=== PATIENT | female | born 1985 | race Two or more races ===

== ENCOUNTER 2023-02-12 12:33 | Outpatient (OUT) | payer OTHER, SELFPAY ==
[2023-02-12 12:52] LABS: Hemoglobin 11.7 g/dL (12.0-16.0)
[2023-02-12] MEDS: ALBUTEROL SULFATE 2.5 MG/3 ML VIAL NEB IH (13:41)
--- NOTE | 2023-02-12 13:45 | RT_ITS ---
The [facility] Test Date: 2023-02-12 Pat Name: LEVI SY Department: Room: - Gender: Female [employer] Planner: Corbin Henderson RRT : 1985 Requested By: Finn Delgado Order Number: [id number] Reading MD: Finn Delgado Interpretive Statements Pulmonary function testing was completed according to ATS criteria. Findings were considered accurate and reproducible. Both pre- and post-bronchodilator values utilized for spirometry. No prior studies available for comparison. Spirometry (based on pre-bronchodilator values): -FEV1/FVC: Normal @ 86% -FEV1: Reduced @ 79% -FVC: Mildly reduced @ 77% -There is no significant bronchodilator response. Lung volumes by plethysmography (based on pre-bronchodilator values): -RV: Normal @ 100% -TLC: Normal @ 92% Diffusion capacity: -DLCO: Normal @ 95% when corrected for Hb 11.7g/dL Flow-volume loop: -Mild restrictive pattern Impressions: -Mild restrictive pattern on spirometry, though restriction is not confirmed as TLC is normal. A reduced FVC with normal RV, TLC and diffusion capacity suggests an obesity pattern based on stated BMI of 46.2. Clinical correlation required. Electronically Signed On 02-16-2023 7:50:32 EDT by Finn Delgado
--- NOTE | 2023-02-12 14:04 | CT_ITS ---
[address] [address] Patient Name: LEVI SY MRN: [id number] date: 1985 Sex: F Assigned Patient Location: CARD Current Patient Location: CARD Accession/Order Number: [id number] Exam Date: 02/12/2023 14:25 Report Date: 02/13/2023 04:51 At the request of: ELVI GRIFFITH Procedure: CT chest high res EXAMINATION: CT chest high res HISTORY: Hemoptysis R0.42, Multiple lung nodules R91.8 , chronic cough COMPARISON: CT abdomen pelvis 10/21/2013 TECHNIQUE: Axial images were obtained at 10 mm intervals during inspiration and expiration in the supine and prone positions. No IV contrast given. Dose reduction techniques were achieved by using automated exposure control and/or adjustment of mA and/or kV according to patient size and/or use of iterative reconstruction technique. FINDINGS: LUNGS: Mild discoid atelectasis or scarring adjacent the major fissure at level of the hilum. Triangular-shaped irregular opacity within posterior right lower lobe, approximately 2.2 x 2.3 cm which changes and volume between supine and prone imaging suggesting a component of atelectasis overlying scarring or infiltrate. Stable 7 mm nodule within medial posterior right costophrenic angle. PLEURA: No mass, effusion, or pneumothorax. GERMAN: Numerous calcified right hilar lymph nodes suggestive of chronic granulomatous disease. MEDIASTINUM: Large calcified mediastinal lymph nodes. CHEST WALL: No mass or axillary adenopathy LIMITED ABDOMEN: No suspicious findings. Limited images of the upper abdomen. OTHER: Negative. IMPRESSION: 1. No significant chronic interstitial changes, air trapping, bronchiectasis. 2. Chronic granulomatous disease. 3. Nonspecific triangular shaped opacity within posterior right lower lobe, in no correlated studies for comparison. Differential favors scarring, atelectasis, and acute infiltrates, but neoplasm cannot be excluded. Consider following up with standard CT chest without contrast in 3 months for greater diagnostic sensitivity and to document stability or clearing. Electronically authenticated by: KIMBERLEY BRYAN Date: 02/13/2023 04:51
== END 2023-02-12 12:34 ==
LOC: CARD 12:37
PROVIDERS: PCP Nurse Practitioner Family; Visit Provider Internal Medicine
DX: R05.3 Chronic cough (principal); R06.02 Shortness of breath; R04.2 Hemoptysis; R91.8 Other nonspecific abnormal finding of lung field
CPT/HCPCS: 36415; 71250; 85018; 94060; 94726; 94729

== ENCOUNTER 2023-05-25 14:14 | Outpatient (OUT) | payer OTHER, SELFPAY ==
[2023-05-25 15:35] LABS: Alanine Aminotransferase 48 U/L (14-59); Albumin Globulin Ratio 0.8; Albumin Level 3.5 g/dL (3.4-5.0); Alkaline Phosphatase 119 U/L (46-116); Aspartate Amino Transferase 36 U/L (15-37); Bilirubin Direct 0.1 mg/dL (0.0-0.2); Globulin 4.4 g/dL; Total Protein 7.9 g/dL (6.4-8.2)
== END 2023-05-25 14:15 | disposition home or self-care (01) ==
LOC: LAB 14:16
PROVIDERS: PCP Nurse Practitioner Family; Visit Provider Podiatrist
DX: B35.1 Tinea unguium (principal)
CPT/HCPCS: 36415; 80076

== ENCOUNTER 2023-12-24 18:45 | Outpatient (OUT) | payer OTHER, SELFPAY ==
--- NOTE | 2023-12-24 18:56 | XR_ITS ---
The [place] [id number] Patient Name: LEVI SY MRN: [id number] date: 1985 Sex: F Assigned Patient Location: [facility] Current Patient Location: Accession/Order Number: [id number] Exam Date: 12/24/2023 18:58 Report Date: 12/25/2023 07:05 At the request of: MARTIN RAY Procedure: XR foot RT 2V PROCEDURE: XR foot RT 2V COMPARISON: None. HISTORY: Right foot pain, M79.671 FINDINGS: BONES:No fracture, acute abnormality, or significant arthropathy. Mild enthesopathic spurring of the calcaneus at the Achilles insertion SOFT TISSUES:Negative. No visible soft tissue swelling. EFFUSION:None visible. OTHER: Negative. XR/XR foot RT 2V IMPRESSION: No acute radiographic abnormality Electronically authenticated by: RAAD ANDUJAR Date: 12/25/2023 07:05
== END 2023-12-24 18:46 | disposition home or self-care (01) ==
PROVIDERS: PCP Nurse Practitioner Family; Visit Provider Nurse Practitioner Family
DX: M79.671 Pain in right foot (principal)
CPT/HCPCS: 73620

== ENCOUNTER 2024-01-07 07:49 | Outpatient (OUT) | payer OTHER, SELFPAY ==
--- OUTSIDE RECORDS SUMMARY | 2024-01-07 08:14 | XMS_ITS | CCD ---
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 [employer] Name Role Phone RANDI MORTONDER Unavailable Unavailable MAHDI BLANCA Unavailable Unavailable Ignacia Acosta Unavailable DianPaige Unavailable IGNACIA RAY Admitting Unavailable IGNACIA RAY Attending Unavailable IGNACIA RAY Primary Care Unavailable IGNACIA RAY Consulting Unavailable RAAD HUGHES Consulting Unavailable Medications Current Medications Medication Drug Class(es) Dates Sig (Normalized) Sig (Original) [id number] 200 actuat albuterol 0.09 mg/actuat metered dose inhaler (2 sources) beta2-Adrenergic Agonist Start: 08-28-2022 take 2 puff(s) by inhalation every four hours as needed Albuterol Sulfate HFA 108 (90 Base) MCG/ACT 2 puffs as needed Inhalation every 4 hrs Aug, Active amoxicillin 875 mg oral tablet (2 sources) Penicillin-class Antibacterial Start: 08-28-2022 take 1 tablet by mouth every eight hours Amoxicillin 875 MG 1 tablet Orally every 8 hrs for 10 day(s) Aug, Active dexamethasone 4 mg oral tablet (2 sources) Corticosteroid Start: 08-28-2022 Dexamethasone 4 MG 3 tablets daily for 3 days then 2 tablets daily for 3 days then 1 tablet daily for 3 days Orally Once a day for 9 days Aug, Active Problems Active Problems Problem Classification Problem Date Documented Da te Episodic/Chronic Acute bronchitis (4 sources) Acute bronchitis, unspecified; Translations: [ACUTE BRONCHITIS UNSPECIFIED] Onset: 10-28-2022 Episodic Immunizations and screening for infectious disease (3 sources) Contact with and (suspected) exposure to other viral communicable diseases; Translations: [Contact with and (suspected) exposure to other viral communicable diseases] Episodic Pneumonia (except that caused by tuberculosis or sexually transmitted disease) (1 source) Pneumonia, unspecified organism Episodic Unclassified (1 source) PERSONAL HISTORY OF COVID-19; Translations: [PERSONAL HISTORY OF COVID-19] Onset: 10-30-2022 Past or Other Problems Problem Classification Problem Date Documented Da te Episodic/Chronic Other female genital disorders (2 sources) Unspecified condition associated with female genital organs and menstrual cycle; Translations: [Unspecified condition associated with female genital organs and menstrual cycle] Onset: 02-05-2017 Episodic Unclassified (1 source) Acute cough R05.1 Viral infection (1 source) COVID-19 Results Test Name Value Interpretation Reference Range Facility XR CHEST 2 Von 10-28-2022 XR CHEST 2 V EXAM: XR CHEST 2 V HISTORY: . Acute bronchitis . COMPARISON: 11/15/2012 TECHNIQUE: Frontal and lateral chest FINDINGS: Heart and vascularity are unremarkable. Left lung is unremarkable. There are couple linear densities in the right midlung field. No consolidation is noted. No effusions are noted. No acute bony abnormality is appreciated. IMPRESSION: Linear areas of platelike atelectasis versus scarring in the right midlung field. The remainder of lung ernst are unremarkable. Electronically authenticated by: RAAD HUGHES Date: 2022-10-28 17:27 Normal [facility] COVID/FLU RT-PCRon 2 SARS-CoV-2 (COVID-19) RNA TOBY+probe Ql (Unsp spec) Positive [employer] Other COVID/FLU RT-PCR Negative [email or web address] Other Coding Summaryon 05-17-2021 Coding Summary [employer] 64 ZbuuoiobCQo8dTb+PGhlYW Q+TS2SPOTdR31dbDUumQ9K Q6lOSM2YTQIUMLQJFI8IRC 6dmIZ9XRmrW8LcyxZs ApmsyBSuWO33QCn0KNK2sP xjRKaszT5zqOVmW6n4ZiLl AC79pU89HVqxZNMtCwB7Vv ZpbjsgbWFy W7atObYvlBZmIsb+PHRhYm xlIHdpZHRoPScxMDAlJyBz dBreXW1zVh8pWAHdEMLoqR xhcHNlOiBj x6sqNLRlYOquSL2doMyyN1 CziRG4LFQwh2o8Fb82fLA+ JVPeVJT4jDxaAQbot190Bg Man5kwDWE3 sVAfOBtsBYP1N31sp0N6FN CpPUDtIUN8iJD3mG0htNff lfljA4WhwSCsEzU3TXI1sA JbpL8zpBkf anykhV0xDvj+W92TLI4PBO FCXJ1SCti1O8MhMksgdKQ+ GA45MROaTU85bFCiuMLaa2 akhCc2NnLu CWWbBOF1qIwiQTtvi2KdTI YoF46koPWjm3N2LBTzpTbc dRNgEoBhuBP1hJ5cZUlpup zfc1ctuuqu Rifbz0uxhs92bW62Z91qCG glMZHcBSB0EXZzJDFrjPqv pu9hmC8iGb3+QCtlu0jwm8 ivqZu4PmAr BSBaqvHciKqeNIW9p6MoUi 70F2OgbAxfj5WmHyl1td56 fWOhr4Y8cUL2EYukMBJnmU 5lSNvjHyS4 KNNqAfYlsG39gTMcMJfyXs 6mvNnorFztNO1hBTRilnhr IWNeeR5tMHWtuWDwnUbbNO 4wNTBpbjtm j946XfBiKNY0BWPdcUCqF6 XagO7lOmElTNStJPLlZ5Wz rQNbZFdaR952QTnnNcL1ZK ZksgQsO6Ia JJMnkQsiQdO5w4C7Bb6Ro7 AtrefpMUI0KLckEYP6KlH6 MzOhPsX2I9JqNvn3YMZygB kzGE9sT9Fy SEJilxzkhwhbkQU4RLVkYN XrxM92rAVtQOthLj3zi7M8 q684KQSeDFSlnP71Ki8bdV ogMTBwdCBU rM6zjzkad6gdjaueEgFjEG TeYWu0OCr7NUPycZvwSsTw LWZ6DdR1GIQ6ePQjtH1egV fyzcdvzI5f Oyc+X95yfZ4kZBL9RQW3eg yjFOYeftRhUZ24XB19L6Ff PjwvdGFibGU+PGRpdiBzdH siDX7mBhKa u8keg0QxCEngY7YdBIAfOS zcGlm1SUDfKAQ7mSJ7yM1i OQHjIUnoj5V4sWO8K9Qcud Qutx7gd1fm DFFoZFfwW47wkNKzx8N4KW NazDX2BKEktNppJcSfyA58 Oyc+YMKfzIcdq5LlHxojm7 ieh0rymRx3 SkHcSKHzduJfwWqgFKS1c4 HfRh10B94sOQpxQOYjIKFx ZNNlFPQtzXfpas3nfT4uAz 8+PGNvbCB3 zJX2nQ8zJUEvNyS5LAbuW9 42KgSypFYwEyeir9bjq9dl rQi9AlQiOMKzslKecNoeQD Z9y5NvSj26 F92lVFtuBADhVJWyHHWhHU OkhHoxem8yyH1nWu9+PC9j x6dcwj07oG11cGM+PHRkIH X9vDgiABfn ADVhoG1bSTbbEnW1WYDhGf KviX90uXCfPXgfJf4jiMyx oHfpTB0iYUHguiszt525Ih Seg3rzWVIn nRUlRXmfNHD0F87lv5M9EY WlGTTrULW5dEY9yF0auOxw bjogbGVmdDsgdmVydGljYW ujTDpuE366 IHRvcDsnPlBhdGllbnQgTm EuSFv8X6QdSdc4TIDpvIqu HV6umSShMEsxJc9svKjjqC bjTZ9cTIAr yzjdi271EmGbn9nfTUVklC YzHPehUML4E90lz6I3SLBp EKEiPRO8uAH7sJ6xnSjnba ogbGVmdDsg rqXzdMmiWIwpEQtyA338AH RvcDsnPkJpcnRoIERhdGU6 HU89DJ50vLBbn1Y9qVM3L0 BhZGRpbmct fpbqcSR2ZNEmGPQhpG83Nt 7zdQlhLv9fWOGfMLV7TIMn rLNpC0UsmX7lRjIrMTCzJM OwY3CjvAMu KFkgP413WHzoJrZ5KUCjkb VkQ1IyUWWujEpeAeQ5w9E6 Nn6VC1B9VQ20LL93xUNxa9 A5yBF8K6Jt MPVfmdaginykpVL7ALZxBD WvsU19Gi6bjFhqYz9qOCSu CGI9ROAsrNAnT3WlsN1lYu AjMDAwMDAw X3ZysQPfHNmlC315ZExuQz C6TMJwgpDkZ2GfFBJcfGvr GiJ3n5L5Mv3LFGa5XN71FH 56wVPou7O0 uYH4N5DgISBeomhiehgkpW L3ZFZmTTCsvP85Lu3vjFru Yp7iZZObKVJ1DQZbhADuO2 ZxoM1mRdGb EWAeFZIdQ6IjeTOpWEkuQ0 74IRueGyY6JXLbxpBbE3Lv IJPekKmyGwZ9y6V9Ay8AZJ FvLH06HXO9 kMU6JX41ST61S5GtFrevwY FibGU+PHRhYmxlIHdpZHRo HJvwZRYcXiGejGczSF5yMf 9yZGVyLWNv uZkxqAQlKzLfv3afVIQxBP iyNJ0llNhvJ3QqzNH9HRWg x3l4Fo60E15mX5TzwAX+PG XyoME8wNU8 yA2pMeOoQyQ7QFbtI629Kr DcrQRmFltkq5kaf4nptEc0 OvD4DWEwraRqhNkbRSC3n3 ApAq40M15z IHdpZHRoPSIxNSUiIHZhbG kpth0rqM4lWv0+PGNvbCB3 lBE6iC7sWoZyTgX7ZSxpA6 49InRvcCIv Wgthv1iup1riqVj5HcCfQA OamoPhuAwuBFE4i2VvDq41 L1CrfNtrx1WxXpq7xr51yR Xht9W9zZU9 Q9SyHTVrglhmaIOolLtcUK 9fKRVurkguQXGovR8jKVRx V7j4MjPdVaE1VBirO0Vatl R4DRYvwNYl FAbrZIN5X90da4P0HFZzRH UuOOS0dHP6aS2gxEwbphhc bGVmdDsgdmVydGljYWwtYW lvL373RPGq kTsnKUWkcL5fSEIwsJNltC zjRK2lMHCyhdhkSwYGM5QB QsuiT3OAFAOUBHNDYG78CX 12kCCtr4B5 tLU8P2EeUEMxszkyqxemnO W8GGHgQJRyyL82kSMdCQli Ge5cx9I3a610MJKcCETtmV 34Cq0fzPpn THRwmFZEkS3ztsspx7shez qyUxXjDNMjMHe9JQf5QVBg dJxcVvIoQET3DmL5MEM4rV JfpI8jlWsu qexylJ2tEcy+MDQvMTAvMT i4EUuohMG+MMAmOOT1cZta CJoiSJCzzG1pRTNyH1p2Ps YfRgW7EKhx E6OlFEIelaroGl68aC3aOy IrUvP1PDhrU9IxibV3JOWh mTIfVSajFIU6S95tl9P3UL MwMDAwMDA7 nHP9zH0snGyaqspvfTOxkY hdotLzgYkoEObyQDmnM731 PIVhvIgqRxE2KEqwXRDzUT 80KY10rECd c9F6yZL6S8WfVCAsnpjfux rucTG5ILTzQITobD44sKWv VJtpNr7gw1P9d864IUCiQY HngM90Jz7a tXisUZUoiWMTiD7pibotc0 delheoDaQdTTZmGZa4LMv2 FMErwXvhZqWjKEZ8LgH2PT K0qTJcdF5x tEvwfjmdiX9dZqr+RkVNQU iKKU80FK00qXRps0E0kFN8 H5DjTVMosbaghqorjIJ6UX DtTBSjnI66 iBVrJGvnOl0ck7G0y570IZ OgUSIxrU36Bh3zvWjhTCUl hFOQmN8newkcn4bckrvsIe AwMDAwMDt0 RYt4GJBtcXvjZsXdAEE5Ix H2DEF9hYLumR7wkMiyggqk vT0xQip+E3H6O4JiElusuD I+BN58UQRo OA10aFXctAAcg7gmiXj5Pe NlCTFyUPJ3pDlbOTurz1Vx RCVwI40bvFBzv9E2BQQxxK xhcHNlOyBl uBD2lL3zPWdeaqlsv5yjcl goYhmlm5xnas05nR16J37t IHdpZHRoPSIzMCUiIHZhbG avwm7pkU8n Ii8+ETFsqEW7sBD2fO8mRe IdWhR3CXatQ005GlGprXTm Etaup5vdd5iboRl7KiOzYA IgdmFsaWdu FRP4h6YaMp03K44pUPtkKV FmRQHbBVLtBMBfxPutrm9g gN5xEz6+GV1jp0gvll01uX 48dHI+PHRk POR7rZjrBJdvTLHdvW6mHH kjDpA3BHChPaXewM50cLWq WGoxUd8baQywqTyoCL4vBL Sceceoi945 JwCak2fpWYAthOAxYMcxBC W5B68vh3H6URMlSHSkCVA7 uDY2nA3cvJkngjqvbSChsM sgdmVydGlj OYapXAuxL773SKAqjOuwLu SibOSrT2odnsGLVH3qEtwy dGQ+VBFbMPD0sTjlCAyzLR CknN1aZUMf Y0g4JlStIvP9LPpgV0Hiek N0VDYnhZYgXFWllFINfB9v fgnzu4rjhbypCoUyFAJvQI t8IQt6CMXs wVvaBlCcXDX8PkY6ZGZ5pL TijF1vbMdwskkhpV2iObx+ RklOOjwvdGQ+WAJwTSJ7jN xlPSdwYWRk gA0hKDBuD7f7MjPgHfM4KB nhO4CbunV6XCKjsZEzEXHk hINNmM8rzmqbv6pwewnbWw AwMDAwMDt0 IAk2FBRfsXteTcAvSGR6Gw E4FTN7cBGqxW8cmOineuwa nY1nAdk+TVJOOjwvdGQ+PH PoIQS1kWgo BAdmHQFzqN2lPOCiB7y3Ef WoWzD1SMvkO4FtbiG5MMLd rJZkKLPavEZTkJ4vbbmaq8 xvcjogIzAw YPJdCWv8UFo5NDHlfFodOp BdVDB5DkU1XWM7yPWheI0w gDjmfvudlL6fGrw+UGF5ZX Q9HO81NV24 E6YlKarwtLLufWI+PHRhYm xlIHdpZHRoPScxMDAlJyBz fJcaAL9zCy4lNRWyJUJefN xhcHNlOiBj b2x (more content not included)... Normal [facility] ED Clinical Summaryon 2020 ED Clinical Summary [facility] ? Urgent Care [address] [place], [place] [id number] Clinical Summary PERSON INFORMATION Name: GABBY COREAS Age: 35 Years Sex: FEMALE : 1985 MRN: Acct#: Visit Reason: Eye problem; UC - Eye Pain; LT EYE IRRITATION Arrival: 05/14/2021 14:57:24 Discharge: 05/14/2021 16:10:00 LOS: 000 01:13 Check In: 05/14/2021 14:57:24 Checkout: 05/14/2021 16:10:00 Address: [address] [facility] [address] PCP: Nancy Sterling PROVIDER INFORMATION Provider Role Assigned Unassigned BETTY Interiano, Priscilla ED Nurse 05/14/2021 15:01:15 Jose Mistry ED PA 05/14/2021 15:06:56 VITALS INFORMATION Vital Sign Triage Latest Temperature Tympanic Temperature Temporal Artery Pulse Rate O2 Sat 96 % 96 % Respiratory Rate Blood Pressure /76 mmHg /76 mmHg MEDICAL INFORMATION Medications Given: Allergy Information: No Known Medication Allergies PHYSICIAN DOCUMENTATION DISCHARGE INFORMATION: Discharge Disposition: Home Discharge Location: Home PATIENT EDUCATION INFORMATION Instructions: Bacterial Conjunctivitis, Adult Follow-Up: With: Address: When: ROSHAN SOTOMAYOR [address] [place] [address] Business (1) Within 1 to 2 days Comments: Call Dr. Sotomayor's office to make a follow-up appointment in the next 1 to 2 days. With: Address: When: Nancy Sterling [address] [facility], [address] [place] [address] [facility] (1) Within 2 to 4 days Comments: Discharge diagnosis of bacterial conjunctivitis, infection of the lacrimal duct. There is no foreign body seen. Weldon lamp negative for corneal abrasions Begin Antibiotic eyedrops of tobramycin to left eye as directed Begin Keflex 500 mg every 8 hours neck 7 days. Off work for today. Apply warm compresses. Without fail follow-up with prescription eyeglass maker. DIAGNOSIS: Acute bacterial conjunctivitis of left eye; Decreased visual acuity; Discharge of eye, left; Infection of left lacrimal duct; Left eye pain; Pain and swelling of lower eyelid of left eye Patient Understands: Yes - Patient/family/caregiv er verbalizes understanding of instructions given Comment: Normal [facility] ED Patient Summaryon 021 ED Patient Summary [facility] ? Urgent Care [address] [place], [place] [id number] PATIENT DISCHARGE INSTRUCTIONS Patient Information Name: GABBY COREAS Age: 35 Years Date of : 1985 Reason For Visit: Eye problem; UC - Eye Pain; LT EYE IRRITATION Arrival Time: 05/14/2021 14:57:24 Primary Care Physician: Nancy Sterling Attending Physician: Jose Mistry Comment: Patient Education With: Address: When: ROSHAN SOTOMAYOR [address] [place] [address] Business (1) Within 1 to 2 days Comments: Call Dr. Sotomayor's office to make a follow-up appointment in the next 1 to 2 days. With: Address: When: Nancy Sterling [address] [facility], [facility] [address] [place] [address] Business (1) Within 2 to 4 days Comments: Discharge diagnosis of bacterial conjunctivitis, infection of the lacrimal duct. There is no foreign body seen. Weldon lamp negative for corneal abrasions Begin Antibiotic eyedrops of tobramycin to left eye as directed Begin Keflex 500 mg every 8 hours neck 7 days. Off work for today. Apply warm compresses. Without fail follow-up with prescription eyeglass maker. Bacterial Conjunctivitis, Adult Bacterial conjunctivitis is an infection of the clear membrane that covers the white part of your eye and the inner surface of your eyelid (conjunctiva). When the blood vessels in your conjunctiva become inflamed, your eye becomes red or pink, and it will probably feel itchy. Bacterial conjunctivitis spreads very easily from person to person (is contagious). It also spreads easily from one eye to the other eye. What are the causes? This condition is caused by bacteria. You may get the infection if you come into close contact with: ? A person who is infected with the bacteria. ? Items that are contaminated with the bacteria, such as a face towel, contact lens solution, or eye makeup. What increases the risk? You are more likely to develop this condition if you: ? Are exposed to other people who have the infection. ? Wear contact lenses. ? Have a sinus infection. ? Have had a recent eye injury or surgery. ? Have a weak body defense system (immune system). ? Have a medical condition that causes dry eyes. What are the signs or symptoms? Symptoms of this condition include: ? Thick, yellowish discharge from the eye. This may turn into a crust on the eyelid overnight and cause your eyelids to stick together. ? Tearing or watery eyes. ? Itchy eyes. ? Burning feeling in your eyes. ? Eye redness. ? Swollen eyelids. ? Blurred vision. How is this diagnosed? This condition is diagnosed based on your symptoms and medical history. Your health care provider may also take a sample of discharge from your eye to find the cause of your infection. This is rarely done. How is this treated? This condition may be treated with: ? Antibiotic eye drops or ointment to clear the infection more quickly and prevent the spread of infection to others. ? Oral antibiotic medicines to treat infections that do not respond to drops or ointments or that last longer than 10 days. ? Cool, wet cloths (cool compresses) placed on the eyes. ? Artificial tears applied 2?6 times a day. Follow these instructions at home: Medicines ? Take or apply your antibiotic medicine as told by your health care provider. Do not stop taking or applying the antibiotic even if you start to feel better. ? Take or apply fxdu-jbg-uilrjwn and prescription medicines only as told by your health care provider. ? Be very careful to avoid touching the edge of your eyelid with the eye-drop bottle or the ointment tube when you apply medicines to the affected eye. This will keep you from spreading the infection to your other eye or to other people. Managing discomfort ? Gently wipe away any drainage from your eye with a warm, wet washcloth or a cotton ball. ? Apply a clean, cool compress to your eye for 10?20 minutes, 3?4 times a day. General instructions ? Do not wear contact lenses until the inflammation is gone and your health care provider says it is safe to wear them again. Ask your health care provider how to sterilize or replace your contact lenses before you use them again. Wear glasses until you can resume wearing contact lenses. ? Avoid wearing eye makeup until the inflammation is gone. Throw away any old eye cosmetics that may be contaminated. ? Change or wash your pillowcase every day. ? Do not share towels or washcloths. This may spread the infection. ? Wash your hands often with soap and water. Use paper towels to dry your hands. ? Avoid touching or rubbing your eyes. ? Do not drive or use heavy machinery if your vision is blurred. Contact a health care provider if: ? You have a fever. ? Your symptoms do not get better after 10 days. Get help right away if you grover (more content not included)... Normal [facility] Eye Cultureon 05-14-2021 Eye Culture Light growth of Staphylococcus epidermidis Normal skin deborah isolated No pathogens isolated Rare epithelial cells 1+ White Blood Cells No organisms seen. Normal [facility] Comment on above: Performed By: #### [id number] #### [facility] (DEFAULT) [address] [place] [address] Urgent Care Note- Provideron 05-14-2021 Urgent Care Note- Provider Patient: GABBY COREAS Age: 35 years Sex: FEMALE : 1985 Associated Diagnoses: Discharge of eye, left; Left eye pain; Pain and swelling of lower eyelid of left eye; Infection of left lacrimal duct; Acute bacterial conjunctivitis of left eye; Decreased visual acuity Author: Jose Mistry Basic Information Time seen: Date & time 05/14/2021 15:07:00. History source: Patient. Arrival mode: Walking. History limitation: None. Additional information: Chief Complaint from Nursing Triage Note : Chief Complaint 05/14/2021 15:41 EDT Chief Complaint Patient arrives to with c/o left eye pain and irritation that began 3 days ago and became worse today . Denies any injury or getting anything in her eye. . Onset 05/11/21 of left eye irritation, scratchy sensation. Seemed normal 05/12 and 05/13. Today patient complains of left eye stringy mucous, irritation, pain to blink. She states she is seeing strings of thick mucus come from her left eye. The inner aspect of her left eye appears swollen. She does not wear glasses or contacts. Patient has a history of stye in the past and wonders if this is the same. She has applied warm compresses. She denies definite vision changes. She states occasionally the left eye becomes blurry when there is mucus and when she wipes her eye her vision clears right back up. She denies a headache, known foreign body, injury to the eye. She does not have a history of diabetes or glaucoma. She does not have an active prescription eyeglass maker. ALL: NKDA Social: Nonsmoker. No Etoh. Lives in [place] [employer] Constitutional symptoms: No fever, no chills. Eye symptoms: Pain, discharge, blurred vision, no diplopia, no blindness. Respiratory symptoms: No shortness of breath, no cough. Gastrointestinal symptoms: No abdominal pain, no vomiting, no diarrhea. Neurologic symptoms: No headache, no dizziness. Health Status Allergies: Allergic Reactions (Selected) No Known Medication Allergies. Past Medical/ Family/ Social History Medical history: No active or resolved past medical history items have been selected or recorded.. Surgical history: No active procedure history items have been selected or recorded.. Family history: No family history items have been selected or recorded.. Social history: Social & Psychosocial Habits Alcohol 05/14/2021 Alcohol Use: Current Frequency: 1-2 times per month Substance Abuse 05/14/2021 Substance use: Never Tobacco 11/08/2017 Smoking tobacco use: Never (less than 100 in l 05/14/2021 Smoking tobacco use: Never (less than 100 in l Electronic Cigarette/Vaping 05/14/2021 Electronic Cigarette Use: Never . Problem list: Active Problems (1) Pneumonia . Physical Examination Vital Signs Vital Signs 05/14/2021 15:41 EDT Temperature Oral 36.5 DegC Peripheral Pulse Rate 98 bpm Respiratory Rate 16 br/min Systolic Blood Pressure 128 mmHg Diastolic Blood Pressure 76 mmHg SpO2 96 % Oxygen Therapy Room air . General: Alert, no acute distress, Not ill-appearing, Skin: Warm, dry, No rash on face or tip of nose. Head: Normocephalic, atraumatic. Neck: Supple, trachea midline. Eye: Pupils are equal, round and reactive to light, extraocular movements are intact, Visual acuity: Right eye 20/ 25, left eye 20/ 50, without correction, Does not wear glasses or contacts, Eyelids: Left, upper and lower, She does have pain with blinking suggestive of corneal abrasion. , clear watery drainage, mild, No pain with blinking., Eyelids everted and there is no visible foreign bodies, no hordeolum. Gentle pressure over bilateral globes does not cause pain or pressure. , medial aspect upper and lower eyelid with edema, erythema. , no chalazion, no ectropion, no entropion, not edematous, no erythema, not with foreign body present, Conjunctiva: Both eyes, not with subconjunctival hemorrhage, Cornea: Clear, Litmus staining with Wood's Lamp Inspection of eye is normal, no abrasions or ulcerations noted., not cloudy, Red reflex: Present. Ears, nose, mouth and throat: Tympanic membrane: no erythema, no dullness, Sinus: no tenderness, Nose: no congestion, Mouth: Normal, Mucous membranes moist, well-hydrated., Mucous membranes moist, well-hydrated., Throat: Gag reflex present, no erythema, not with exudate, no swelling, no uvula shift. Cardiovascular: Regular rate and rhythm, No murmur. Respiratory: Lungs are clear to auscultation, respirations are non-labored, breath sounds are equal, No wheezing, rales, rhonchi, no retractions, nonlabored. Gastrointestinal: Soft, Nontender. Neurological: Alert and oriented to person, place, time, and situation, No focal neurological deficit observed, CN II-XII intact, normal speech observed. Lymphatics: Exam: not anterior cervical, not posterior cervical, not swollen. Psychiatric: Cooperative, appropriate mood & affect. Medical Decision Making Rationale: Patient seen in urgent care for left eye irritation a (more content not included)... Normal [facility] Urgent Care [place] [address]21 Urgent Care Record [facility] ? Urgent Care [address] [place] [address] PATIENT DISCHARGE INSTRUCTIONS Patient Information Name: GABBY COREAS Age: 35 Years Date of : 1985 Reason For Visit: Eye problem; UC - Eye Pain; LT EYE IRRITATION Arrival Time: 05/14/2021 14:57:24 Primary Care Physician: Nancy Sterling Attending Physician: Jose Mistry Comment: Visit Diagnosis: Diagnoses This Visit Acute bacterial conjunctivitis of left eye (H10.32) Decreased visual acuity (H54.7) Discharge of eye, left (H57.89) Eye problem ([id number]) Infection of left lacrimal duct (H04.302) Left eye pain (H57.12) Pain and swelling of lower eyelid of left eye (H02.89) UC - Eye Pain ([id number]) If you received any narcotics, sedation, or any other medication that causes drowsiness for the next 24 hours, unless otherwise directed: ? Do not drive a car. ? Do not operate machinery such as power tools, lawn mowers, drills, sewing machines, or stoves ? Avoid alcoholic beverages and drugs for allergies, nerves, or sleep ? Do not make important personal or business decisions or sign any legal documents With: Address: When: ROSHAN SOTOMAYOR [address] [place] [address] Business (1) Within 1 to 2 days Comments: Call Dr. Sotomayor's office to make a follow-up appointment in the next 1 to 2 days. With: Address: When: Nancy Sterlnig [address] [place] [address] [address] [place] [address] Business (1) Within 2 to 4 days Comments: Discharge diagnosis of bacterial conjunctivitis, infection of the lacrimal duct. There is no foreign body seen. Weldon lamp negative for corneal abrasions Begin Antibiotic eyedrops of tobramycin to left eye as directed Begin Keflex 500 mg every 8 hours neck 7 days. Off work for today. Apply warm compresses. Without fail follow-up with prescription eyeglass maker. Medication Information: The exam and treatment you received today in the [facility] were for an urgent problem and are not intended as complete care. It is important for you to follow up with a doctor, nurse practitioner, or physician?s home based assistant for ongoing care. If your symptoms become worse or you do not improve as expected and you are unable to reach your usual health care provider, you should return to the Emergency Department, we are available 24 hours a day. For those patients who have received Radiology results, the interpretation of your X-ray as given to you by our Urgent Care physician is only a preliminary report. The Radiologist will review your films and if there is a change in the diagnosis you will be notified by phone. Please make sure you have provided a working phone number so we can reach you if necessary. In the event that you had a lab culture while you were a patient in the Urgent Care, you will be notified by phone if there is a need to change your antibiotic. Please make sure you have provided a working phone number so we can reach you if necessary. [facility] Urgent Care has provided you with a complete list of medications post discharge. Please inform your sales office manager/provider of your visit and for further instruction on these medications. Any specific questions regarding your chronic medications and dosages should be discussed with your primary care physician(s) and/or pharmacist. New Medications [facility], [address] [place] [address] [phone], [phone] cephalexin (Keflex 500 mg oral capsule) 1 cap(s) Oral 3 times a day for 10 Days. Refills: 0. tobramycin ophthalmic (tobramycin 0.3% ophthalmic solution) 2 gtts every 2 hours day #1, then 2 gtts every 4-6 hours day #2-7 in left eye.. Refills: 1. Visit Information Allergies: Substance Reaction Symptoms Type Comments No Known Medication Allergies Drug Vital Signs: Vitals and Measurements this Visit (last charted value for your 05/14/2021 visit) Vital Signs This Visit Temperature Oral: 36.5 DegC Peripheral Pulse Rate: 98 bpm Respiratory Rate: 16 br/min Systolic Blood Pressure: 128 mmHg Diastolic Blood Pressure: 76 mmHg SpO2: 96 % Oxygen Therapy: Room air Problems List: Problem Onset Comments Pneumonia Patient Education Bacterial Conjunctivitis, Adult Bacterial conjunctivitis is an infection of the clear membrane that covers the white part of your eye and the inner surface of your eyelid (conjunctiva). When the blood vessels in your conjunctiva become inflamed, your eye becomes red or pink, and it will probably feel itchy. Bacterial conjunctivitis spreads very easily from person to person (is contagious). It also spreads easily from one eye to the other eye. What are the causes? This condition is caused by bacteria. You may get the infection if you come into close contact with: ? A person who is infected with the bacteria. ? Items han (more content not included)... Normal [facility] Basic Metabolic Panelon 09-25 Calcium [Mass/Vol] 8.9 mg/dL Normal 8.2-10.2 [facility] Comment on above: Performed By: #### C BC, BMP #### [facility] [address] Chloride [Moles/Vol] 104 mmol/L Normal 95-114 [facility] Comment on above: Performed By: #### C BC, BMP #### [facility] [address] CO2 [Moles/Vol] 19.7 mmol/L Low 22.0-30.0 [facility] Comment on above: Performed By: #### C BC, BMP #### [facility] [address] Creatinine [Mass/Vol] 0.70 mg/dL Normal 0.44-1.03 [facility] Comment on above: Performed By: #### C BC, BMP #### [place] [address] [place] Creatinine Clr Calc Pharmacy 125.80 [facility] Comment on above: Result Comment: PERF ORMED BY: [place] [address] PATHOLOGIST SASH ASSEMBLER MELVIN MAI M.D. Performed By: #### C BC, BMP #### [address] Estimated GFR ( [place] > 60 [facility] Comment on above: Result Comment: GFR estimated reference range: According to KDOQI guidelines, <60 ml/min/1.73m2 is sufficient to diagnose a patient with chronic kidney disease. Performed By: #### C BC, BMP #### [facility] [address] [place] [address] Estimated GFR (Non- Am > 60 [facility] Comment on above: Performed By: #### C BC, BMP #### [address] Glucose [Mass/Vol] 97 mg/dL Normal 70-100 [facility] Comment on above: Result Comment: [place] om Glucose Reference Range is dependent on time and content of last meal. Glucose of more than 200 mg/dL in a nonstressed, ambulatory subject supports the diagnosis of Diabetes Mellitus. ADA recommended reference range Performed By: #### C BC, BMP #### [address] Potassium [Moles/Vol] 4.0 mmol/L Normal 3.5-5.1 [facility] Comment on above: Performed By: #### C BC, BMP #### [address] Sodium [Moles/Vol] 134 mmol/L Low 136-146 [facility] Comment on above: Performed By: #### C BC, BMP #### [address] Urea nitrogen [Mass/Vol] 10 mg/dL Normal 9-23 [facility] Comment on above: Performed By: #### C BC, BMP #### [address] Complete Blood Count Auto Di ffon 10-19-2020 Basophils (Bld) [#/Vol] 0.1 10*3/uL Normal 0.0-0.2 [facility] Comment on above: Result Comment: PERF ORMED BY: [place] [address] PATHOLOGIST SASH ASSEMBLER MELVIN MAI M.D. Performed By: #### C BC, BMP #### [place] [address] [place] Basophils/100 WBC (Bld) 0.8 % Normal . [facility] Comment on above: Performed By: #### C BC, BMP #### [place] [address] [place] Eosinophils (Bld) [#/Vol] 0.1 10*3/uL Normal 0.0-0.45 [facility] Comment on above: Performed By: #### C BC, BMP #### [place] [address] [place] Eosinophils/100 WBC (Bld) 1.3 % Normal . [facility] Comment on above: Performed By: #### C BC, BMP #### [facility] [address] Erythrocyte distribution width (RBC) [Ratio] 14.5 % Normal 11.9-15.3 [facility] Comment on above: Performed By: #### C BC, BMP #### [facility] [address] Hematocrit (Bld) [Volume fraction] 34.1 % Normal 34.0-46.4 [facility] Comment on above: Performed By: #### C BC, BMP #### [facility] [address] Hemoglobin (Bld) [Mass/Vol] 11.9 g/dL Normal 11.8-15.4 [facility] Comment on above: Performed By: #### C BC, BMP #### [address] Lymphocytes (Bld) [#/Vol] 2.5 10*3/uL Normal 1.00-4.8 [facility] Comment on above: Performed By: #### C BC, BMP #### [address] Lymphocytes/100 WBC (Bld) 34.7 % Normal . [facility] Comment on above: Performed By: #### C BC, BMP #### [address] MCH (RBC) [Entitic mass] 29.3 pg Normal 24.7-34.3 [facility] Comment on above: Performed By: #### C BC, BMP #### [facility] [address] MCV (RBC) [Entitic vol] 83.8 fL Normal 80-100 [facility] Comment on above: Performed By: #### C BC, BMP #### [address] Mean Corpuscular HGB Conc 34.9 g/dL Normal 32.0-35.0 [facility] Comment on above: Performed By: #### C BC, BMP #### [facility] [address] [place] [address] [place] Monocytes (Bld) [#/Vol] 0.4 10*3/uL Normal 0.0-0.8 [facility] Comment on above: Performed By: #### C BC, BMP #### [facility] [address] [place] [phone] [place] Monocytes/100 WBC (Bld) 4.9 % Normal . [facility] Comment on above: Performed By: #### C BC, BMP #### [facility] [address] [place] [address] [place] Neutrophils (Bld) [#/Vol] 4.2 10*3/uL Normal 1.8-7.7 [facility] Comment on above: Performed By: #### C BC, BMP #### [facility] [address] [place] [address] [place] Neutrophils/100 WBC (Bld) 58.3 % Normal . [facility] Comment on above: Performed By: #### C BC, BMP #### [facility] [address] [place] [address] [place] Nucleated RBC/100 WBC (Bld) [Ratio] 0.1 % Normal 0-0.5 [facility] Comment on above: Performed By: #### C BC, BMP #### [facility] [address] [place] [address] [place] Platelet mean volume (Bld) [Entitic vol] 8.6 fL Normal 6.3-10.7 [facility] Comment on above: Performed By: #### C BC, BMP #### [facility] [address] [place] [phone] [place] Platelets (Bld) [#/Vol] 298 10*3/uL Normal 150-450 [facility] Comment on above: Performed By: #### C BC, BMP #### [facility] [address] [place] [phone] [place] RBC (Bld) [#/Vol] 4.06 10*6/uL Normal 3.60-5.00 [facility] Comment on above: Performed By: #### C BC, BMP #### [facility] [address] [place] [address] [place] WBC (Bld) [#/Vol] 7.2 10*3/uL Normal 4.5-11.0 [facility] Comment on above: Performed By: #### C BC, BMP #### [facility] [address] [place] [address] [place] Dipstick and Microscopicon 0 10-19-2020 Appearance (U) Clear Normal Clear [facility] Comment on above: Order Comment: Name Collection Type:: Clean-Voided Midstream Performed By: #### U HCG, ADDONUAPLUS #### [facility] [address] [place] [address] Bacteria,Urine None Seen Normal None Seen [facility] Comment on above: Order Comment: Name Collection Type:: Clean-Voided Midstream Performed By: #### U HCG, ADDONUAPLUS #### [address] Bilirubin,Urine Negative Normal Negative [facility] Comment on above: Order Comment: Name Collection Type:: Clean-Voided Midstream Performed By: #### U HCG, ADDONUAPLUS #### [facility] [address] [place] [address] Color (U) Yellow Normal Yellow [facility] Comment on above: Order Comment: Name Collection Type:: Clean-Voided Midstream Performed By: #### U HCG, ADDONUAPLUS #### [facility] [address] [place] [address] [place] Glucose Ql (U) Normal Normal Normal [facility] Comment on above: Order Comment: Name Collection Type:: Clean-Voided Midstream Performed By: #### U HCG, ADDONUAPLUS #### [facility] [address] [place] [address] [place] Hyaline Casts,Urine 0-8 Normal 0-8 [facility] Comment on above: Order Comment: Name Collection Type:: Clean-Voided Midstream Performed By: #### U HCG, ADDONUAPLUS #### [facility] [address] [place] [address] Ketones Ql (U) Negative Normal Negative [facility] Comment on above: Order Comment: Name Collection Type:: Clean-Voided Midstream Performed By: #### U HCG, ADDONUAPLUS #### [address] Leukocyte esterase Test strip Ql (U) 1+ High Negative [facility] Comment on above: Order Comment: Name Collection Type:: Clean-Voided Midstream Performed By: #### U HCG, ADDONUAPLUS #### [address] Nitrite,Urine Negative Normal Negative [facility] Comment on above: Order Comment: Name Collection Type:: Clean-Voided Midstream Performed By: #### U HCG, ADDONUAPLUS #### [address] Occult Blood,Urine Negative Normal Negative [facility] Comment on above: Order Comment: Name Collection Type:: Clean-Voided Midstream Performed By: #### U HCG, ADDONUAPLUS #### [address] pH (U) 5.5 [pH] Normal 5.0-9.0 [facility] Comment on above: Order Comment: Name Collection Type:: Clean-Voided Midstream Performed By: #### U HCG, ADDONUAPLUS #### [address] Protein,Urine Negative Normal Negative [facility] Comment on above: Order Comment: Name Collection Type:: Clean-Voided Midstream Performed By: #### U HCG, ADDONUAPLUS #### [address] RBC LM.HPF (Urine sed) [#/Area] 0 /[HPF] Normal 0-4 [facility] Comment on above: Order Comment: Name Collection Type:: Clean-Voided Midstream Performed By: #### U HCG, ADDONUAPLUS #### [address] Specificy [place],Urine 1.011 Normal 1.001-1.030 [facility] Comment on above: Order Comment: Name Collection Type:: Clean-Voided Midstream Performed By: #### U HCG, ADDONUAPLUS #### [facility] [address] Squamous Epithelial Cell,Urine 5-9 High 0-2 [facility] Comment on above: Order Comment: Name Collection Type:: Clean-Voided Midstream Performed By: #### U HCG, ADDONUAPLUS #### [facility] [address] Urobilinogen,Urine Normal Normal Normal [facility] Comment on above: Order Comment: Name Collection Type:: Clean-Voided Midstream Performed By: #### U HCG, ADDONUAPLUS #### [facility] [address] [place] [address] WBC,Urine 3-4 Normal 0-4 [facility] Comment on above: Order Comment: Name Collection Type:: Clean-Voided Midstream Performed By: #### U HCG, ADDONUAPLUS #### [address] HCG,Urineon 10-19-2020 Beta HCG ( test) Ql (U) Negative Normal [facility] Comment on above: Order Comment: Name Collection Type:: Clean-Voided Midstream Result Comment: PERF ORMED BY: [place] [address] PATHOLOGIST SASH ASSEMBLER MELVIN MAI M.D. Performed By: #### U HCG, ADDONUAPLUS #### [facility] [address] [place] [address] PROGRESSon 02-22-2017 PROGRESS HNO ID: [id number]: Blanca Aguero: (none)Author Type: PhysicianType: Progress NotesFiled: 02/22/2017 11:31 AMNote Text:DATE OF SERVICE: 02/18/2017PROBLEM: Gabby Coreas presents for postop visit.SURGERY AND DATE: 6/15/2017Laparoscopic right salpingo-k1rozufoeald and left ovarian cystectomyPATHOLOGY:[facility] DIAGNOSIS1. Right ovary and fallopian tube, right salpingo-oophorectomy (A):Right ovary - Serous cystadenoma.- Fibroma.Right fallopian tube - No significant pathologic change.2. Left ovary, cystectomy (B) - Serous cystadenoma.SUBJECTIVE /INTERVAL HISTORY: Gabby Coreas reports that she feelswell. No fever or chills. No shortness of breath, cough, or chest pain.No incisional redness, swelling, or drainage. Patient reports that herappetite is good. No abdominal pain, nausea, vomiting, diarrhea, orconstipation. No dysuria, gross hematuria, urinary frequency, urinaryurgency, or incontinence. Her ECOG performance status is zero (fullyactive, able to carry on all pre-disease performance without restriction).Blanca Morton MDOBJECTIVE:VITALS: BP 123/84 Pulse 92 Temp 36.6 ?C (97.8 ?F) (Oral) Resp 18 Ht 157.5 cm (5' 2.01 ) Wt 101.2 kg (223 lb 3.2 oz) LMP 01/19/2017 BMI 40.81 kg/a1SEVOL: Normocephalic, atraumatic, mucus membranes moist and no lesionsLUNGS: Normal efforts.ABDOMEN: Abdomen soft, non-tender, no hepatosplenomegaly. Incision healingwell.LOWER EXTREMITIES: No pitting edema, no palpable cords and no skinchanges.ASSESSMENT :31 yo women with complex right adnexal mass 8 cm and left adnexal cyst 3cm s/p laparoscopic surgery as abovePrior diagnostic laparoscopy and ovarian cystectomies??PLAN:1. Postoperative restrictions were reviewed. Overall she recovered verywell2. We discussed the pathology results which came back c/w benign disease.No further treatment or surgery are needed3. I advised her to continue her routine quality control manager exam and cervical screening4. I advised her to call my office with any issue or concern especially ifrelated to the surgeryBlanca Morton MD, MPHCC:Storm Thurman, LISSETT Clark (PCP) Normal [facility] CNOVon 02-18-2017 CNOV Office Visit (GYNOSA) GABBY COREAS ([id number]) 1985 FDate Time Provider Department02/18/17 3:20 PM BLANCA MORTON During your visit today, we recorded the following information about you: Temperature Pulse Respiration Blood pressure 97.8 degrees 92/minute 18/minute 123/84 Weight Height 101.2 kg 1.575 Jeffrymary Guillory 02/18/2017 4:00 PM SignedPatient believes she has a UTI, which is causing her some discomfort.Blanca Morton MD 02/22/2017 11:31 AM SignedDATE OF SERVICE: 02/18/2017PROBLEM: Gabby Coreas presents for postop visit.SURGERY ANDamp; DATE: 02/05/2017Laparoscopic right salpingo-x7rfqurcgrht and left ovarian cystectomyPATHOLOGY:[facility] DIAGNOSIS1. Right ovary and fallopian tube, right salpingo-oophorectomy (A):Right ovary - Serous cystadenoma.- Fibroma.Right fallopian tube - No significant pathologic change.2. Left ovary, cystectomy (B) - Serous cystadenoma.SUBJECTIVE /INTERVAL HISTORY: Gabby Coreas reports that she feels well. Nofever or chills. No shortness of breath, cough, or chest pain. No incisionalredness, swelling, or drainage. Patient reports that her appetite is good. Noabdominal pain, nausea, vomiting, diarrhea, or constipation. No dysuria, grosshematuria, urinary frequency, urinary urgency, or incontinence. Her ECOGperformance status is zero (fully active, able to carry on all pre-diseaseperformance without restriction).Blanca Morton MDOBJECTIVE:VITALS: BP 123/84 Pulse 92 Temp 36.6 ?C (97.8 ?F) (Oral) Resp 18 Ht157.5 cm (5' 2.01ANDquot;) Wt 101.2 kg (223 lb 3.2 oz) LMP 01/19/2017 BMI40.81 kg/k3YPWMN: Normocephalic, atraumatic, mucus membranes moist and no lesionsLUNGS: Normal efforts.ABDOMEN: Abdomen soft, non-tender, no hepatosplenomegaly. Incision healing well.LOWER EXTREMITIES: No pitting edema, no palpable cords and no skin changes.ASSESSMENT:31 yo women with complex right adnexal mass 8 cm and left adnexal cyst 3 cm s/plaparoscopic surgery as abovePrior diagnostic laparoscopy and ovarian cystectomies??PLAN:1. Postoperative restrictions were reviewed. Overall she recovered very well2. We discussed the pathology results which came back c/w benign disease. Nofurther treatment or surgery are needed3. I advised her to continue her routine quality control manager exam and cervical screening4. I advised her to call my office with any issue or concern especially ifrelated to the surgeryBlanca Morton MD, MPHCC:Storm Thurman, LISSETT Clark (PCP)Referring Provider: BLANCA MORTON [[id number]]Allergies As of Date: 02/18/2017(No Known Allergies)Date Reviewed: 02/18/2017Reviewed by: Radha Guillory - Fully AssessedReason for Visit: Pelvic mass [Other] Cmt: Post op follow upPrimary Visit Diagnosis:Serous cystadenoma of ovary, right [D27.0] Other Visit Diagnosis:Serous cystadenoma of ovary, left [D27.1]Prescriptions as of 02/18/2017 Sig: OXYCODONE 5 MG TABLET Take 1 tablet by mouth every * DOCUSATE SODIUM 100 MG CAPSULE Take 1 capsule by mouth twice* ACETAMINOPHEN 325 MG TABLET Take 2 tablets by mouth every*Problem List As Of Date 02/18/2017 Noted Resolved Obesity due to excess calories [E66.09] INVALID FOR*Visit Notes:>> Radha Guillory ThuFeb 18, 2017 4:00 PM Status: SignedPatient believes she has a UTI, which is causing her some discomfort.Follow-up and Disposition History RecordedEncounter Number: [id number] Status:Closed by BLANCA MORTON MD on 02/22/17 Normal [facility] Vital Signs Date Time Vital Sign Value Performing Clinician Facility 08-28-2022 17:45-0500 Body height 157.48 cm Paige Biggs Other [facility] Other 08-28-2022 17:45-0500 Body mass index (BMI) [Ratio] 41.7 kg/m2 Paige Biggs Other [facility] Other 08-28-2022 17:45-0500 Body temperature 98.1 [degF] Paige Biggs Other [facility] Other 08-28-2022 17:45-0500 Body weight 103.42 kg Paige Biggs Other [facility] Other 08-28-2022 17:45-0500 Diastolic blood pressure 75 mm[Hg] Paige Biggs Other [facility] Other 08-28-2022 17:45-0500 Respiratory rate 18 /min Paige Biggs Other [facility] Other 08-28-2022 17:45-0500 SaO2% (BldA) [Mass fraction] 99 % Paige Biggs Other [facility] Other 08-28-2022 17:45-0500 Systolic blood pressure 129 mm[Hg] Paige Biggs Other [facility] Other 08-11-2022 11:15-0500 Body height 157.48 cm Ignacia Acosta Other [facility] Other 08-11-2022 11:15-0500 Body mass index (BMI) [Ratio] 41.7 kg/m2 Ignacia Acosta Other [facility] Other 08-11-2022 11:15-0500 Body temperature 98 [degF] Ignacia Acosta Other [facility] Other 08-11-2022 11:15-0500 Body weight 103.42 kg Ignacia Acosta Other [facility] Other 08-11-2022 11:15-0500 Respiratory rate 18 /min Ignacia Acosta Other [facility] Other 08-11-2022 11:15-0500 SaO2% (BldA) [Mass fraction] 98 % Ignacia Acosta Other [facility] Other Encounters Encounter Date Encounter Type Care Provider Facility Start: 10-28-2022 End: 10-29-2022 ambulatory IGNACIA RAY Facility: Start: 08-28-2022 End: 08-28-2022 ambulatory Paige Biggs Other [facility] Other Start: 08-28-2022 Office outpatient visit 15 minutes Paige Biggs [facility] Start: 08-11-2022 End: 08-11-2022 ambulatory Ignacia Acosta Other [facility] Other Start: 08-11-2022 Office outpatient ne w 20 minutes Ignacia Karla [facility] Start: 02-18-2017 End: 02-18-2017 Ambulatory BLANCA [facility] Start: 02-05-2017 End: 02-06-2017 Ambulatory [facility] Payers Date Payer Category Payer Unknown [id number] 1960 Private Health Insurance [id number] Social History Date Type Detail Facility Sex Assigned At [facility] Other Evaluation note 08-28-2022 Note Date & Type Note Facility 08-28-2022 Evaluation note Encounter Date Diagnosis Assessment Notes Aug, Walking pneumonia (ICD-10 - J18.9) Take medications as directed. Rest and increase fluid intake. Take meds with food to prevent stomach upset. Use inhaler as needed for coughing spells and SOB. It is better to use inhaler a few times a day over the next 2-3 days. Follow up with primary care provider if symptoms do not improve with treatment plan, although it may take a few weeks for the cough to go away [facility] Other Evaluation note 08-11-2022 Note Date & Type Note Facility 08-11-2022 Evaluation note Encounter Date Diagnosis Assessment Notes Jul, Contact with and (suspected) exposure to other viral communicable diseases (ICD-10 - Z20.828) Jul, COVID-19 (ICD-10 - U07.1) Discharge Instructions for COVID-19 (Suspected or Confirmed ) material was printed Drink plenty fluids, get plenty of rest. Take Tylenol or Motrin as needed for aches pains or fevers. You must quarantine for 5 days after the onset of your symptoms of COVID. Follow-up with your family physician if no improvement in 2 to 3 days. Jul, Acute cough (ICD-10 - R05.1) [facility] Other Clinical Note 05-14-2021 Note Date & Type Note Facility 05-14-2021 Note Patient Education Ma terials Follows:Disease Bacterial Conjunctivitis, Adult Bacterial conjunctivitis is an infection of the clear membrane that covers the white part of your eye and the inner surface of your eyelid (conjunctiva). When the blood vessels in your conjunctiva become inflamed, your eye becomes red or pink, and it will probably feel itchy. Bacterial conjunctivitis spreads very easily from person to person (is contagious). It also spreads easily from one eye to the other eye. What are the causes? This condition is caused by bacteria. You may get the infection if you come into close contact with: ? A person who is infected with the bacteria. ? Items that are contaminated with the bacteria, such as a face towel, contact lens solution, or eye makeup. What increases the risk? You are more likely to develop this condition if you: ? Are exposed to other people who have the infection. ? Wear contact lenses. ? Have a sinus infection. ? Have had a recent eye injury or surgery. ? Have a weak body defense system (immune system). ? Have a medical condition that causes dry eyes. What are the signs or symptoms? Symptoms of this condition include: ? Thick, yellowish discharge from the eye. This may turn into a crust on the eyelid overnight and cause your eyelids to stick together. ? Tearing or watery eyes. ? Itchy eyes. ? Burning feeling in your eyes. ? Eye redness. ? Swollen eyelids. ? Blurred vision. How is this diagnosed? This condition is diagnosed based on your symptoms and medical history. Your health care provider may also take a sample of discharge from your eye to find the cause of your infection. This is rarely done. How is this treated? This condition may be treated with: ? Antibiotic eye drops or ointment to clear the infection more quickly and prevent the spread of infection to others. ? Oral antibiotic medicines to treat infections that do not respond to drops or ointments or that last longer than 10 days. ? Cool, wet cloths (cool compresses) placed on the eyes. ? Artificial tears applied 2?6 times a day. Follow these instructions at home: Medicines ? Take or apply your antibiotic medicine as told by your health care provider. Do not stop taking or applying the antibiotic even if you start to feel better. ? Take or apply xtva-pki-dtjqbhw and prescription medicines only as told by your health care provider. ? Be very careful to avoid touching the edge of your eyelid with the eye-drop bottle or the ointment tube when you apply medicines to the affected eye. This will keep you from spreading the infection to your other eye or to other people. Managing discomfort ? Gently wipe away any drainage from your eye with a warm, wet washcloth or a cotton ball. ? Apply a clean, cool compress to your eye for 10?20 minutes, 3?4 times a day. General instructions ? Do not wear contact lenses until the inflammation is gone and your health care provider says it is safe to wear them again. Ask your health care provider how to sterilize or replace your contact lenses before you use them again. Wear glasses until you can resume wearing contact lenses. ? Avoid wearing eye makeup until the inflammation is gone. Throw away any old eye cosmetics that may be contaminated. ? Change or wash your pillowcase every day. ? Do not share towels or washcloths. This may spread the infection. ? Wash your hands often with soap and water. Use paper towels to dry your hands. ? Avoid touching or rubbing your eyes. ? Do not drive or use heavy machinery if your vision is blurred. Contact a health care provider if: ? You have a fever. ? Your symptoms do not get better after 10 days. Get help right away if you have: ? A fever and your symptoms suddenly get worse. ? Severe pain when you move your eye. ? Facial pain, redness, or swelling. ? Sudden loss of vision. Summary ? Bacterial conjunctivitis is an infection of the clear membrane that covers the white part of your eye and the inner surface of your eyelid (conjunctiva). ? Bacterial conjunctivitis spreads very easily from person to person (is contagious). ? Wash your hands often with soap and water. Use paper towels to dry your hands. ? Take or apply your antibiotic medicine as told by your health care provider. Do not stop taking or applying the antibiotic even if you start to feel better. ? Contact a health care provider if you have a fever or your symptoms do not get better after 10 days. This information is not intended to replace advice given to you by your health care provider. Make sure you discuss any questions you have with your health care provider. Document Revised: 11/29/2019 Document Reviewed: 03/16/2019 [employer] Patient Education ? 2019 [employer]. [facility] Summary Purpose Family History No Family History Records FoundNo Family History Records FoundNo Family History Records FoundNo Family History Records FoundNo Family History Records Found Advance Directives No Advanced Directives Records FoundNo Advanced Directives Records FoundNo Advanced Directives Records FoundNo Advanced Directives Records FoundNo Advanced Directives Records Found Additional Source Comments INFORMATION SOURCE (unrecogn ized section and content) DATE CREATED AUTHOR 02/17/2018 [facility] [place] DATE CREATED AUTHOR AUTHOR'S ORGANIZ ATION 02/17/2018 [facility] DATE CREATED AUTHOR AUTHOR'S ORGANIZ ATION 05/25/2021 [facility] DATE CREATED AUTHOR AUTHOR'S ORGANIZ ATION 09/08/2021 [facility] DATE CREATED AUTHOR AUTHOR'S ORGANIZ ATION 10/30/2022 [facility] REASON FOR VISIT (unrecogniz ed section and content) COUGH, CONGESTIONCOUGH TEST POSS COVID 08/11/2022 FOR RECORDS PERTAINING TO PATIENTS WHO ARE OR HAVE BEEN ENROLLED IN A CHEMICAL DEPENDENCY/SUBSTANCEABUSE PROGRAM, SOME INFORMATION MAY BE OMITTED. This clinical summary was aggregated from multiple sources. Caution should be exercised in using it in the provision of clinical care. This summary normalizes information from multiple sources, and as a consequence, information in this document may materially change the coding, format and clinical context of patient data. In addition, data may be omitted in some cases. CLINICAL DECISIONS SHOULD BE BASED ON THE PRIMARY CLINICAL RECORDS. [employer] [facility]. provides no warranty or guarantee of the accuracy or completeness of information in this document.
[2024-01-07 08:28] LABS: Estimated Average Glucose 103 mg/dL; Glycohemoglobin A1C 5.2 % (4.5-6.2)
[2024-01-07 08:37] LABS: Chol HDL Ratio 4.9; Cholesterol 186 mg/dL (<=200); HDL Cholesterol 38 mg/dL (40-60); Thyroid Stimulating Hormone 4.502 uIU/mL (0.358-3.740); Triglycerides 169 mg/dL (<=150); VLDL CHOLESTEROL 33.8 mg/dL
[2024-01-07 08:38] LABS: Free T3 2.91 pg/mL (2.18-3.98)
[2024-01-07 08:43] LABS: Basophils Absolute Auto 0.1 10^3/uL (0.0-0.1); Basophils Percent Auto 0.6 % (0.2-2.0); Eosinophils Absolute Auto 0.2 10^3/uL (0.0-0.7); Eosinophils Percent Auto 2.2 % (0.9-7.0); Hematocrit 34.6 % (36.0-48.0); Hemoglobin 11.8 g/dL (12.0-16.0); Immature Granulocytes Abs Auto 0.04 10^3/uL (0.00-0.03); Immature Granulocytes Pct Auto 0.5 % (0.0-0.5); Lymphocytes Absolute Auto 2.1 10^3/uL (1.2-3.8); Lymphocytes Percent Auto 24.5 % (20.5-60.0); Mean Corpuscular HGB Conc 34.1 g/dL (29.9-35.2); Mean Corpuscular Hemoglobin 29.5 pg (26.7-34.0); Mean Corpuscular Volume 86.5 fL (81.0-99.0); Mean Platelet Volume 9.9 fL (9.5-13.5); Monocytes Absolute Auto 0.4 10^3/uL (0.3-0.8); Monocytes Percent Auto 5.1 % (1.7-12.0); Neutrophils Absolute Auto 5.7 10^3/uL (1.4-6.5); Neutrophils Percent Auto 67.1 % (43.0-75.0); Platelet Count 331 10^3/uL (150-450); Red Cell Distribution Width 13.2 % (11.0-15.0); White Blood Count 8.5 10^3/uL (4.0-11.0)
[2024-01-08 10:10] LABS: Insulin 54.8 uIU/mL (2.6-24.9)
== END 2024-01-07 07:50 | disposition home or self-care (01) ==
LOC: LAB 07:52
PROVIDERS: PCP Nurse Practitioner Family; Visit Provider Nurse Practitioner Family
DX: Z00.00 Encounter for general adult medical examination without abnormal findings (principal)
CPT/HCPCS: 36415; 80061; 82306; 83036; 83525; 83540; 84436; 84439; 84443; 84481; 85025

== ENCOUNTER 2024-01-12 13:45 | Outpatient (OUT) | payer OTHER, SELFPAY ==
--- NOTE | 2024-01-12 | XR_ITS ---
The [address] [address] Patient Name: LEVI SY MRN: [id number] date: 1985 Sex: F Assigned Patient Location: Current Patient Location: Accession/Order Number: [id number] Exam Date: 01/12/2024 13:45 Report Date: 01/13/2024 06:48 At the request of: KAYLEEN ABREU Procedure: XR foot RT min 3V PROCEDURE: XR foot RT min 3V HISTORY: RIGHT FOOT PAIN COMPARISON: None. FINDINGS: BONES:No fracture, acute abnormality, or significant arthropathy. SOFT TISSUES:No visible soft tissue swelling. EFFUSION:None visible. OTHER: Negative. XR/XR foot RT min 3V IMPRESSION: 1. No acute bone abnormality or appreciable degenerative joint disease. Electronically authenticated by: KIMBERLEY BRYAN Date: 01/13/2024 06:48
== END 2024-01-12 13:46 | disposition home or self-care (01) ==
LOC: EC 13:45
PROVIDERS: PCP Nurse Practitioner Family; Visit Provider Podiatrist Foot & Ankle Surgery
DX: M79.671 Pain in right foot (principal)
CPT/HCPCS: 73630

== ENCOUNTER 2024-01-25 06:42 | Outpatient (OUT) | payer OTHER, SELFPAY ==
--- OUTSIDE RECORDS SUMMARY | 2024-01-25 06:45 | XMS_ITS | CCD ---
Author Organization [facility] CliniSyfl Care Team Providers Care Director Of Market Intelligence Name Role Phone RICKBERTO BLANCA Unavailable Unavailable BLANCA Unavailable Unavailable Ignacia Acosta Unavailable DianPaige Unavailable IGNACIA RAY Admitting Unavailable IGNACIA RAY Attending Unavailable IGNACIA RAY Primary Care Unavailable IGNACIA RAY Consulting Unavailable RAAD HUGHES Consulting Unavailable Medications Current Medications Medication Drug Class(es) Dates Sig (Normalized) Sig (Original) [id number] 200 actuat albuterol 0.09 mg/actuat metered dose [...] RAAD HUGHES Date: 2022-10-28 17:27 Normal [facility] COVID/FLU RT-PCRon 2 SARS-CoV-2 (COVID-19) RNA TOBY+probe Ql (Unsp spec) Positive [employer] Other COVID/FLU RT-PCR Negative [employer] Other Coding Summaryon 05-17-2021 Coding Summary HTMLBase 64 KwdkmnazKUc7gAa+PGhlYW Q+XL2IKSSfL40jfJDigS4P E6uMDX9TUHYHBIWMAZ3WIR 6uoXW8NXwjE0ChkfNw FctwoIZeXP90NCm5XFO7nX okPRwflW0jvTCtX8o2TtWs GW59xG23KDjjKGXcZjH2Su ZpbjsgbWFy J7lsZfQasYAqLxu+PHRhYm xlIHdpZHRoPScxMDAlJyBz hDfeRF2cYe7mQEXfGFNwkF xhcHNlOiBj j7feVRVtHKkdCA4ylWsqG1 KzpLM8OWRoj0s3Wr29hUK+ ODUdZBF3aYchQTtbj645Hr Oxr3rwJYD2 lJQjAWkzQYT8E39dt8C8BM IwSLHqRIR8eLO0uZ8mkEvh szgxZ3LzhIInXmN8GWM2lP GceT7ymBmq ikncrB4lBze+T89MPF7PWB UOYQ0VBvs7D8YnSteksHJ+ FH48FMCfDG13lBMevEXeo0 jacKs6WcQd DDKgPAL2rXokTFknn6XuMI FjF77seBTmz3J4NUPbxQoy lAOtTlGbpQZ3oU3eJCvfnb lti4danzaz Mwtxs3rnst87sF43Z89xSW fpJIOsZKU8HBNdSBYtcRux lc3yjU9qBl8+WVffe7yvj4 lbvHl8BxUi GYMnyoEjmIxsKEM8u3MrWh 56Z9HpcNikb5HgSpy9qm28 jZIob9S1pIT5WRdySQOguX 6lEUcpRbE8 MTFpIlNloO28pSGdJTrsHt 1imKfyjVggGE6mIRSfqoyy JBSruA1hWJCziDCgkXwxPN 4wNTBpbjtm w123PlPpZPB7ZKNlcEMuI0 BvoZ0xSfWfPGXpSLDxM1Qu oEWwDNctN060RMauVuV1IK BqynKwV6Oa JUAiyQnhXoJ4l0M6Rc7Pk9 BergyxKRN8EXqeIBW2QvT9 OnLwMjA1G8IfWea5WFRnuD urFN8eG4Vt XHAlggyunsdkfPL0GRFfXT LknW20lECzUFgpOh9hy2C0 d222NKCtNQSgwN17Zh0ziK ogMTBwdCBU wH4fgcexu3yupnhnUuTyLE EyAEp9NJp5TQFsuZyxNoFd PJC2MtV2MAT0zGLkgI0fqA dyutirjM3l Oyc+I93dhS1fGZY8PUN9qu kbCQMlcfVrAP28FR85B9Pe PjwvdGFibGU+PGRpdiBzdH ezRL0tDgVu r1qpb7KvHBqcB8WxGJEsGG veHdl0FORdVZP0oTW1zR1q ZMTnCYndu7K9fWA4L4Igbx Glhs7kd8xy UDAgHSghS11zuNYpw3Q5HP CgbCN7JGGbxRpgRlZjoC59 Oyc+JXYiyZsdo1UcCqrzj4 fof7yrfAq4 VsLxLVMuwdRukFqgMAT1f8 PcDs46A55rLAilIUTqDGQz WJTlJJIguFkqay2ipT9jWk 8+PGNvbCB3 dPJ4pX4lRMQhRiI0GAzcR5 96YwGboOOpDursi2ads0jl cXf4MtJaXWOcpbFmgHfuRY N2l0CrHz44 C83aPAqvQSPlMSRcYBPeAT DhkMyyvy4vvO9dCi1+PC9j l4dueb91nA52fLA+PHRkIH S0fZyjWZam THSepU5sOZgoLxG6LJNrCu QwtI84rKYtHApvEs2uvTux dFdwWN7eTIGweffqt468Vd Bce1seULZv aMDhOCjcOGJ8M45ha6I6KJ TuRCDpVVM6hKA4bJ2fuAei bjogbGVmdDsgdmVydGljYW rtVJseY433 IHRvcDsnPlBhdGllbnQgTm TtMBl1C5FuEqq7NCWupNpk VM3dhNArKKdlMk6rxWvqcZ ewIS0tMWJh psobr504YgMzu9mvNITlgF TiIPfsDKR4D20vj2U6CSXt DSDbHWX0yEN7nI9huSvpuv ogbGVmdDsg ktUzcGudEFxrMBtwP370WJ RvcDsnPkJpcnRoIERhdGU6 BS60TN10hEUjv8Z5rMJ8N5 BhZGRpbmct letbjDV7ATOcMZVfdZ16Rq 0nbUaiLa1bHQWlTIT0ULRd gONuF6DxgJ9wCbEaNVUvEC KkR7JznRPy NCciB044ESgiKaQ7HHFdov AoL5NqAIGqhRibYqO8b0D7 Cz0UP5X7KN60SL98sGCrz2 U5gDI2T3Wo BBKloegbvlhowQL0CIFxVD KpnU99Ny5jhQxrAn7yALTa WOD9JAMqkPQyK0XmsD0oFe AjMDAwMDAw G3HdjILuMSxnF734HRirUy X3UTBafzBuK0DrTPAcrRtz HrC6l3Y4Dr9WSFw7HM09TU 98tVGzt2K5 sBS6G6IcDXCbrrlawvkozL G5JQHzRUOvkI13Ij3bfDia Lm5sBDOlTSW9RJUouPYzN1 MaqF1pMrLn MJRqEBNwN2MapESyIByqV0 24TMiaAtI1DERzgcHwN5Xj QCKrxPhkUuP5o3X8Cx0KPF YvNI25DWE2 yOW6VZ69JZ77H6SbCyefkY FibGU+PHRhYmxlIHdpZHRo XCbqAJCwFyNraKdgTJ1xQb 9yZGVyLWNv hMqpqWNbXtUny1lmESFjSZ rsAN0psNecQ6FwhFP2PLCq l5g5Eg43M51jL5KwnCY+PG PvvBU6xES7 gO0qRrOeSkW9JHtqH188Uj WitBTwOsufi8xwv3ijqVy5 ZoB1QBHqwoFolFymLHY2w5 OxJh62Y28f IHdpZHRoPSIxNSUiIHZhbG ucpa3doE2zAy4+PGNvbCB3 oJF5aY1vDfFzCvN4YReiJ0 49InRvcCIv Dtpvz7chb3hmmUt5MyVqUO LiowVxbRxsGCB7y8IhQn43 Q2HamKgze5BvNsf1ke54fM Wux4C4gPB5 N3HtHBJgibcdpYOzvLitAC 4pABSzbgcoIOOmdN4hMFCe N4j5QuRjVoR4CZubL9Zftg T3RTXkyYXu IRdyZCS3W22wa8W1UHPoYF AgMCZ1tAA1aZ9ptLfuknbn bGVmdDsgdmVydGljYWwtYW srE111MWVi uHtiESObmA9xRBEgfMSbhY ehLE7eUHXzayooEcUBA9LQ DhndO1PLHUBOXNMUID19EW 33jOBoz3W0 sNH2H4EqHSPqmgxabpwjpN Q8VBEaCQZfrD61dWMiNCic At2ea5C5d591MDNnGSIkpT 70Xm1rqLym KBBciQBXaA0ugjdwy6hukp mwRhGeFBLwTVk6LJh5UAIq zOscZfWoDVF5YuU3YPE1vG EujC1qjRlb xtyvzD3zGhh+MDQvMTAvMT k6YTqttZE+PJReQDQ1kFrj CPfeCLYyhQ7fSNLeI8p2Qz HoVoC7POtc O2ZeJMTnrrpjIw28nF7cVw NqXdR7UGunQ2WxkmG4AFNz sZJrAIrwBKA5C31at0L2IA MwMDAwMDA7 jCJ8hM0yvJglaozjpQQvcR zkqgWveSufFTenOUiuA022 ERVxiNmxIuM7QMvdXWYrEH 68ZC07xKXk g8Z5rLZ7O7ExEZNlbcfetn odhUD6VVRvTXDpsV95bXNz QOgeQs8zh0E2h709RXIbKH NadJ90Xb4n fMeuYMDbnINNxZ9jlspxg9 pcbrlgHoVxZNGzIWj7DNt2 NLPmmVbaMyToNPE2MdS6NH C6fYDhuA1b iBgzfbixgZ1rZqy+RkVNQU cTKS14TK21mZNna0I0nOL2 V5KzUVCcaxlkxfaqyTK0FL PzOPGzlT93 sLBiRSdnLd2rc1F1a551RI DgDUPfnM93Da9srGswRJYn tVOLhD9sgcasf4jfxussFk AwMDAwMDt0 EYc3ILVdjLrjRjViUFS2Ld P0KGE3zIGpkK2kqMbofdhm uT7kYkq+C4C6J5YdMshtzN I+DQ65GNMq MG25bUPieMBkj3ykvYj3El UrJRLtTIB1cOirXYlxj6Fg ZSGbQ29qiRWbp1E1IXXboL xhcHNlOyBl dKH0wV5pTPgxqtole4qlox phWgqrj9pzko62cV70E08s IHdpZHRoPSIzMCUiIHZhbG qdnh0gdW1v Ii8+HLLpzKI4tBD3oC3fVp SxKxC5UYpcC784HzPoqPQc Cxgjm8kps8rckWj4OwYyJI IgdmFsaWdu HAK1f4RyPu44U36aZXakTQ RiAUSxQPYqUVSbiCztwa4p fR8yBm5+HQ4ad6pfge07oJ 48dHI+PHRk NAM3gWohTTtwMXZswC1xYD iyQzT6WKXrLhDbcQ24aVIq KGtqQo8tvHpqvWuuNJ8qYH Rbbqjkk244 MjPbe0cxDQXpnMXcXRknYO B5Q02db7E9UEKiBYLqCUT1 yQG4yI9zqHcjioqdwTWixA sgdmVydGlj KPatLPrhZ716BWMrsXcuAj XiqJZvI4hobnWOVJ6fRcjb dGQ+NTPhZVT5bLtcMVtzTU MacC9fTLAg E7p2DkToDyZ0USksW7Ilkc T8ZFXylPXeUMRyxNAXaV3z aifok5fjcoujFpTbFWVmAH f7GQg6PTSq dSghCcCfOAU5OuT7MDW5uO TwfF3heJpeodfnmC2yLfj+ RklOOjwvdGQ+LGMsCIS6nS xlPSdwYWRk wW8wXBTwT8w2RbLdFiQ2XX jhB5VhcvG4WOEjaKQdRCNx uOLHvB6iwaobj9eziwljDm AwMDAwMDt0 LAx7WEXokAiaKiEaLOP4Tf V6SQG2kVCdeH3mpVnzghdr lD3nCub+TVJOOjwvdGQ+PH OePYU7kZac XKaaPTNtiU8yNTVhC4g3On AzXzT3LEonM3PetcT8UQDh vTQxQZLctFMRmW1ckdrgx4 xvcjogIzAw BZEoYWz6TGb8XECwhTryZo QxYAJ4BxE9ZQF5iHNyqA3d wTclxkjolD7dEzr+UGF5ZX N3UY31DL23 B8JcUpvwhLCjbIB+PHRhYm xlIHdpZHRoPScxMDAlJyBz oGqxNW5qTv1gGMXoUQVeeE xhcHNlOiBj b2x (more content not included)... Normal [facility] ED Clinical Summaryon 2020 ED Clinical Summary [facility] [address] [place], [place] [id number] Clinical Summary PERSON INFORMATION Name: GABBY COREAS Age: 35 Years Sex: FEMALE : 1985 MRN: Acct#: Visit Reason: Eye problem; UC - Eye Pain; LT EYE IRRITATION Arrival: 05/14/2021 14:57:24 Discharge: 05/14/2021 16:10:00 LOS: 000 01:13 Check In: 05/14/2021 14:57:24 Checkout: 05/14/2021 16:10:00 Address: [address] [place] [id number] PCP: Nancy Sterling PROVIDER INFORMATION Provider Role [...] Follow-Up: With: Address: When: ROSHAN SOTOMAYOR [address] [place] [address] Business (1) Within 1 to 2 days Comments: Call Dr. Sotomayor's office to make a follow-up appointment in the next 1 to 2 days. With: Address: When: Nancy Sterling [address] [facility], [address] [place] [address] [facility] (1) Within 2 to 4 days Comments: Discharge diagnosis of bacterial conjunctivitis, infection of the lacrimal duct. There is no foreign body seen. Weldon lamp negative for corneal abrasions Begin Antibiotic eyedrops of tobramycin to left eye as directed Begin Keflex 500 mg every 8 hours neck 7 days. Off work for today. Apply warm compresses. Without fail follow-up with eyelet maker. DIAGNOSIS: Acute bacterial conjunctivitis of left eye; Decreased visual acuity; Discharge of eye, left; Infection of left lacrimal duct; Left eye pain; Pain and swelling of lower eyelid of left eye Patient Understands: Yes - Patient/family/caregiv er verbalizes understanding of instructions given Comment: Normal [facility] ED Patient Summaryon 021 ED Patient Summary [facility] ? [facility] Care [address] [place] [address] PATIENT DISCHARGE INSTRUCTIONS Patient Information Name: GABBY COREAS Age: 35 Years Date of : 1985 [id number] Reason For Visit: Eye problem; UC - Eye Pain; LT EYE IRRITATION Arrival Time: 05/14/2021 14:57:24 Primary Care Physician: Nancy Sterling Attending Physician: Jose Mistry Comment: Patient Education With: Address: When: ROSHAN SOTOMAYOR [address] [place], [place] [id number] Business (1) Within 1 to 2 days Comments: Call Dr. Sotomayor's office to make a follow-up appointment in the next 1 to 2 days. With: Address: When: Nancy Sterling [address] [facility] [address] [place], [place] [id number] Business (1) Within 2 to 4 days Comments: Discharge diagnosis of bacterial conjunctivitis, infection of the lacrimal duct. There is no foreign body seen. Weldon lamp negative for corneal abrasions Begin Antibiotic eyedrops of tobramycin to left eye as directed Begin Keflex 500 mg every 8 hours neck 7 days. Off work for today. Apply warm compresses. Without fail follow-up with eyelet maker. Bacterial Conjunctivitis, Adult Bacterial conjunctivitis is [...] to feel better. ? Take or apply qbge-hgx-kobapmd and prescription medicines only as told by [...] you grover (more content not included)... Normal [facility] Eye Cultureon 05-14-2021 Eye Culture Light growth of Staphylococcus epidermidis Normal skin deborah isolated No pathogens isolated Rare epithelial cells 1+ White Blood Cells No organisms seen. Normal [facility] Comment on above: Performed By: #### 2 [id number] #### [facility] (DEFAULT) [address] [place] [address] Urgent Care Note- Provideron 05-14-2021 Urgent Care [...] glaucoma. She does not have an active eyelet maker. ALL: NKDA Social: Nonsmoker. No Etoh. Lives in [place] Review of Systems Constitutional symptoms: No fever, [...] irritation a (more content not included)... Normal [facility] [place] 021 Urgent Care Record [facility] ? Urgent Care [address] [place] [address] PATIENT DISCHARGE INSTRUCTIONS Patient Information Name: GABBY [...] Discharge of eye, left (H57.89) Eye problem ([id number]) Infection of left lacrimal duct (H04.302) Left eye pain (H57.12) Pain and swelling of lower eyelid of left eye (H02.89) UC - Eye Pain ([id number]) If you received any narcotics, sedation, or [...] documents With: Address: When: ROSHAN SOTOMAYOR [address] [place] [id number] Business (1) Within 1 to 2 days Comments: Call Dr. Sotomayor's office to make a follow-up appointment in the next 1 to 2 days. With: Address: When: Nancy Sterling [address] [facility], [address] [place] [address] Business (1) Within 2 to 4 days Comments: Discharge diagnosis of bacterial conjunctivitis, infection of the lacrimal duct. There is no foreign body seen. Weldon lamp negative for corneal abrasions Begin Antibiotic eyedrops of tobramycin to left eye as directed Begin Keflex 500 mg every 8 hours neck 7 days. Off work for today. Apply warm compresses. Without fail follow-up with eyelet maker. Medication Information: The exam and treatment you received today in the [facility] were for an urgent problem and are not intended as complete care. It is important for you to follow up with a doctor, nurse practitioner, or physician?s assistant nurse manager for ongoing care. If your symptoms become [...] so we can reach you if necessary. [facility] has provided you with a complete list of medications post discharge. Please inform your rag cutting machine tender/provider of your visit and for further instruction on these medications. Any specific questions regarding your chronic medications and dosages should be discussed with your primary care physician(s) and/or pharmacist. New Medications [facility], [address] [place] [phone], [phone] cephalexin (Keflex 500 mg oral capsule) 1 [...] Items han (more content not included)... Normal [facility] Basic Metabolic Panelon - Calcium [Mass/Vol] 8.9 mg/dL Normal 8.2-10.2 [facility] Comment on above: Performed By: #### C BC, BMP #### [facility] [address] Chloride [Moles/Vol] 104 mmol/L Normal 95-114 [facility] Comment on above: Performed By: #### C BC, BMP #### [facility] [address] CO2 [Moles/Vol] 19.7 mmol/L Low 22.0-30.0 [facility] Comment on above: Performed By: #### C BC, BMP #### [facility] [address] Creatinine [Mass/Vol] 0.70 mg/dL Normal 0.44-1.03 [facility] Comment on above: Performed By: #### C BC, BMP #### [place] [address] [place] Creatinine Clr Calc Pharmacy 125.80 [facility] Comment on above: Result Comment: PERF ORMED BY: [place] [address] PATHOLOGIST HEALTH CARE ADMINISTRATOR MELVIN MAI M.D. Performed By: #### C BC, BMP #### [address] Estimated GFR ( Sharon > 60 [facility] Comment on above: Result Comment: GFR estimated reference range: According to KDOQI guidelines, <60 ml/min/1.73m2 is sufficient to diagnose a patient with chronic kidney disease. Performed By: #### C BC, BMP #### [facility] [address] Estimated GFR (Non- Am > 60 [facility] Comment on above: Performed By: #### C BC, BMP #### [facility] [address] Glucose [Mass/Vol] 97 mg/dL Normal 70-100 [facility] Comment on above: Result Comment: [place] om Glucose Reference Range is dependent on time and content of last meal. Glucose of more than 200 mg/dL in a nonstressed, ambulatory subject supports the diagnosis of Diabetes Mellitus. ADA recommended reference range Performed By: #### C BC, BMP #### [address] Potassium [Moles/Vol] 4.0 mmol/L Normal 3.5-5.1 [facility] Comment on above: Performed By: #### C BC, BMP #### [address] Sodium [Moles/Vol] 134 mmol/L Low 136-146 [facility] Comment on above: Performed By: #### C BC, BMP #### [address] Urea nitrogen [Mass/Vol] 10 mg/dL Normal 9-23 [facility] Comment on above: Performed By: #### C BC, BMP #### [address] Complete Blood Count Auto Di ffon 10-19-2020 Basophils (Bld) [#/Vol] 0.1 10*3/uL Normal 0.0-0.2 [facility] Comment on above: Result Comment: PERF ORMED BY: [place] [address] PATHOLOGIST HEALTH CARE ADMINISTRATOR MELVIN MAI M.D. Performed By: #### C BC, BMP #### [address] Basophils/100 WBC (Bld) 0.8 % Normal . [facility] Comment on above: Performed By: #### C BC, BMP #### [place] [address] [place] Eosinophils (Bld) [#/Vol] 0.1 10*3/uL Normal 0.0-0.45 [facility] Comment on above: Performed By: #### C BC, BMP #### [place] [address] [place] Eosinophils/100 WBC (Bld) 1.3 % Normal . [facility] Comment on above: Performed By: #### C BC, BMP #### [address] Erythrocyte distribution width (RBC) [Ratio] 14.5 % Normal 11.9-15.3 [facility] Comment on above: Performed By: #### C BC, BMP #### [address] Hematocrit (Bld) [Volume fraction] 34.1 % Normal 34.0-46.4 [facility] Comment on above: Performed By: #### C BC, BMP #### [address] Hemoglobin (Bld) [Mass/Vol] 11.9 g/dL Normal 11.8-15.4 [facility] Comment on above: Performed By: #### C BC, BMP #### [address] Lymphocytes (Bld) [#/Vol] 2.5 10*3/uL Normal 1.00-4.8 [facility] Comment on above: Performed By: #### C BC, BMP #### [address] Lymphocytes/100 WBC (Bld) 34.7 % Normal . [facility] Comment on above: Performed By: #### C BC, BMP #### [address] MCH (RBC) [Entitic mass] 29.3 pg Normal 24.7-34.3 [facility] Comment on above: Performed By: #### C BC, BMP #### [address] MCV (RBC) [Entitic vol] 83.8 fL Normal 80-100 [facility] Comment on above: Performed By: #### C BC, BMP #### [address] Mean Corpuscular HGB Conc 34.9 g/dL Normal 32.0-35.0 [facility] Comment on above: Performed By: #### C BC, BMP #### [facility] [address] [place] [address] [place] Monocytes (Bld) [#/Vol] 0.4 10*3/uL Normal 0.0-0.8 [facility] Comment on above: Performed By: #### C BC, BMP #### [facility] [address] [place] [id number] [place] Monocytes/100 WBC (Bld) 4.9 % Normal . [facility] Comment on above: Performed By: #### C BC, BMP #### [facility] [address] [place] [address] [place] Neutrophils (Bld) [#/Vol] 4.2 10*3/uL Normal 1.8-7.7 [facility] Comment on above: Performed By: #### C BC, BMP #### [facility] [address] [place] [address] [place] Neutrophils/100 WBC (Bld) 58.3 % Normal . [facility] Comment on above: Performed By: #### C BC, BMP #### [facility] [address] [place] [address] [place] Nucleated RBC/100 WBC (Bld) [Ratio] 0.1 % Normal 0-0.5 [facility] Comment on above: Performed By: #### C BC, BMP #### [facility] [address] [place] [address] [place] Platelet mean volume (Bld) [Entitic vol] 8.6 fL Normal 6.3-10.7 [facility] Comment on above: Performed By: #### C BC, BMP #### [facility] [address] [place] [id number] [place] Platelets (Bld) [#/Vol] 298 10*3/uL Normal 150-450 [facility] Comment on above: Performed By: #### C BC, BMP #### [facility] [address] [place] [phone] [place] RBC (Bld) [#/Vol] 4.06 10*6/uL Normal 3.60-5.00 [facility] Comment on above: Performed By: #### C BC, BMP #### [facility] [address] [place] [address] [place] WBC (Bld) [#/Vol] 7.2 10*3/uL Normal 4.5-11.0 [facility] Comment on above: Performed By: #### C BC, BMP #### [facility] [address] [place] [address] [place] Dipstick and Microscopicon 0 10-19-2020 Appearance (U) Clear Normal Clear [facility] Comment on above: Order Comment: Name Collection Type:: Clean-Voided Midstream Performed By: #### U HCG, ADDONUAPLUS #### [address] Bacteria,Urine None Seen Normal None Seen [facility] Comment on above: Order Comment: Name Collection Type:: Clean-Voided Midstream Performed By: #### U HCG, ADDONUAPLUS #### [address] Bilirubin,Urine Negative Normal Negative [facility] Comment on above: Order Comment: Name Collection Type:: Clean-Voided Midstream Performed By: #### U HCG, ADDONUAPLUS #### [address] Color (U) Yellow Normal Yellow [facility] Comment on above: Order Comment: Name Collection Type:: Clean-Voided Midstream Performed By: #### U HCG, ADDONUAPLUS #### [place] [address] [place] Glucose Ql (U) Normal Normal Normal [facility] Comment on above: Order Comment: Name Collection Type:: Clean-Voided Midstream Performed By: #### U HCG, ADDONUAPLUS #### [place] [address] [place] Hyaline Casts,Urine 0-8 Normal 0-8 [facility] Comment on above: Order Comment: Name Collection Type:: Clean-Voided Midstream Performed By: #### U HCG, ADDONUAPLUS #### [facility] [address] [place] [address] Ketones Ql (U) Negative Normal Negative [facility] Comment on above: Order Comment: Name Collection Type:: Clean-Voided Midstream Performed By: #### U HCG, ADDONUAPLUS #### [facility] [address] [place] [address] Leukocyte esterase Test strip Ql (U) 1+ High Negative [facility] Comment on above: Order Comment: Name Collection Type:: Clean-Voided Midstream Performed By: #### U HCG, ADDONUAPLUS #### [address] Nitrite,Urine Negative Normal Negative [facility] Comment on above: Order Comment: Name Collection Type:: Clean-Voided Midstream Performed By: #### U HCG, ADDONUAPLUS #### [address] Occult Blood,Urine Negative Normal Negative [facility] Comment on above: Order Comment: Name Collection Type:: Clean-Voided Midstream Performed By: #### U HCG, ADDONUAPLUS #### [address] pH (U) 5.5 [pH] Normal 5.0-9.0 [facility] Comment on above: Order Comment: Name Collection Type:: Clean-Voided Midstream Performed By: #### U HCG, ADDONUAPLUS #### [facility] [address] [place] [address] Protein,Urine Negative Normal Negative [facility] Comment on above: Order Comment: Name Collection Type:: Clean-Voided Midstream Performed By: #### U HCG, ADDONUAPLUS #### [facility] [address] [place] [address] [place] RBC LM.HPF (Urine sed) [#/Area] 0 /[HPF] Normal 0-4 [facility] Comment on above: Order Comment: Name Collection Type:: Clean-Voided Midstream Performed By: #### U HCG, ADDONUAPLUS #### [address] Specificy [place],Urine 1.011 Normal 1.001-1.030 [facility] Comment on above: Order Comment: Name Collection Type:: Clean-Voided Midstream Performed By: #### U HCG, ADDONUAPLUS #### [address] Squamous Epithelial Cell,Urine 5-9 High 0-2 [facility] Comment on above: Order Comment: Name Collection Type:: Clean-Voided Midstream Performed By: #### U HCG, ADDONUAPLUS #### [address] Urobilinogen,Urine Normal Normal Normal [facility] Comment on above: Order Comment: Name Collection Type:: Clean-Voided Midstream Performed By: #### U HCG, ADDONUAPLUS #### [address] WBC,Urine 3-4 Normal 0-4 [facility] Comment on above: Order Comment: Name Collection Type:: Clean-Voided Midstream Performed By: #### U HCG, ADDONUAPLUS #### [address] HCG,Urineon 10-19-2020 Beta HCG ( test) Ql (U) Negative Normal [facility] Comment on above: Order Comment: Name Collection Type:: Clean-Voided Midstream Result Comment: PERF ORMED BY: [place] [address] PATHOLOGIST HEALTH CARE ADMINISTRATOR MELVIN MAI M.D. Performed By: #### U HCG, ADDONUAPLUS #### [address] PROGRESSon 02-22-2017 PROGRESS HNO ID: [id number]: Blanca Medinaice: (none)Author Type: PhysicianType: Progress NotesFiled: 02/22/2017 11:31 AMNote Text:DATE OF SERVICE: 02/18/2017PROBLEM: Gabby Coreas presents for postop visit.SURGERY AND DATE: 02/05/2017Laparoscopic right salpingo-u2qordlafmna and left ovarian cystectomyPATHOLOGY: NAL DIAGNOSIS1. 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 I advised her to call my office with any issue or concern especially ifrelated to the surgeryBlanca Morton MD, MPHCC:Storm Thurman, LISSETT Clark (PCP) Normal [facility] CNOVon 02-18-2017 CNOV Office Visit (GYNOSA) GABBY COREAS ([id number]) 1985 FDate Time Provider Department02/18/17 3:20 PM [...] for postop visit.SURGERY ANDamp; DATE: 02/05/2017Laparoscopic right salpingo-a3fyjgbnmzfz and left ovarian cystectomyPATHOLOGY:[facility] DIAGNOSIS1. Right ovary and fallopian tube, right [...] (223 lb 3.2 oz) LMP 01/19/2017 BMI40.81 kg/h0SRZRW: Normocephalic, atraumatic, mucus membranes moist and no [...] I advised her to continue her routine wharf operator exam and cervical screening4. I advised her to call my office with any issue or concern especially ifrelated to the surgeryBlanca Morton MD, MPHCC:Storm Thurman, LISSETT Clark (PCP)Referring Provider: BLANCA MORTON [[id number]]Allergies As of Date: 02/18/2017(No Known Allergies)Date Reviewed: [...] some discomfort.Follow-up and Disposition History RecordedEncounter Number: [id number] Status:Closed by BLANCA MORTON MD on 02/22/[address] [facility] Vital Signs Date Time Vital Sign Value Performing Clinician Facility 01-05-2023 17:45-0500 Body height 157.48 cm Paige Biggs Other [facility] Other 08-28-2022 17:45-0500 Body mass index (BMI) [Ratio] 41.7 kg/m2 Paige Biggs Other [facility] Other 08-28-2022 17:45-0500 Body temperature 98.1 [degF] Paige Biggs Other [facility] Other 08-28-2022 17:45-0500 Body weight 103.42 kg Paige Biggs Other [facility] Other 08-28-2022 17:45-0500 Diastolic blood pressure 75 mm[Hg] Paige Biggs Other [facility] Other 08-28-2022 17:45-0500 Respiratory rate 18 /min Paige Biggs Other [facility] [employer] Other 08-28-2022 17:45-0500 SaO2% (BldA) [Mass fraction] 99 % Paige Biggs Other [employer] Other 08-28-2022 17:45-0500 Systolic blood pressure 129 mm[Hg] Paige Biggs Other [employer] Other 08-11-2022 11:15-0500 Body height 157.48 cm Ignacia Acosta Other [employer] Other 08-11-2022 11:15-0500 Body mass index (BMI) [Ratio] 41.7 kg/m2 Ignacia Acosta Other [employer] Other 08-11-2022 11:15-0500 Body temperature 98 [degF] Ignacia Acosta Other [employer] Other 08-11-2022 11:15-0500 Body weight 103.42 kg Ignacia Acosta Other [employer] Other 08-11-2022 11:15-0500 Respiratory rate 18 /min Ignacia Acosta Other [employer] Other 08-11-2022 11:15-0500 SaO2% (BldA) [Mass fraction] 98 % Ignacia Acosta Other [employer] Other Encounters Encounter Date Encounter Type Care Provider Facility Start: 10-28-2022 End: 10-29-2022 ambulatory IGNACIA RAY Facility: Start: 08-28-2022 End: 08-28-2022 ambulatory Paige Biggs Other [employer] [facility] [employer] Other Start: 08-28-2022 Office outpatient visit 15 minutes Paige Biggs [facility] Start: 08-11-2022 End: 08-11-2022 ambulatory Ignacia Acosta Other [employer] [facility] Other Start: 08-11-2022 Office outpatient ne w 20 minutes Ignacia Karla [facility] Start: 02-18-2017 End: 02-18-2017 Ambulatory [facility] Start: 02-05-2017 End: 02-06-2017 Ambulatory [facility] Payers Date Payer Category Payer Unknown [id number] 1960 Private Health Insurance [id number] Social History Date Type Detail Facility Sex Assigned At [employer] [facility] [employer] Other Evaluation note 08-28-2022 Note Date & [...] weeks for the cough to go away [employer] [facility] Other Evaluation note 08-11-2022 Note Date & [...] days. Jul, Acute cough (ICD-10 - R05.1) [employer] Other Clinical Note 05-14-2021 Note Date & [...] to feel better. ? Take or apply [id number] and prescription medicines only as told by [...] provider. Document Revised: 11/29/2019 Document Reviewed: 03/16/2019 [employer] Patient Education ? 2020 [employer] [facility] Summary Purpose Family History No Family History Records FoundNo Family History Records FoundNo Family History Records FoundNo Family History Records FoundNo Family History Records Found Advance Directives No Advanced Directives Records FoundNo Advanced Directives Records FoundNo Advanced Directives Records FoundNo Advanced Directives Records FoundNo Advanced Directives Records Found Additional Source Comments INFORMATION SOURCE (unrecogn ized section and content) DATE CREATED AUTHOR 02/17/2018 [facility] DATE CREATED AUTHOR AUTHOR'S ORGANIZ ATION 02/17/2018 [facility] DATE CREATED AUTHOR AUTHOR'S ORGANIZ ATION [facility] DATE CREATED AUTHOR AUTHOR'S ORGANIZ ATION 09/08/2021 [facility] DATE CREATED AUTHOR AUTHOR'S ORGANIZ ATION [...] BE BASED ON THE PRIMARY CLINICAL RECORDS. [facility] [employer] [facility]. provides no warranty or guarantee of the accuracy or completeness of information in this document.
--- NOTE | 2024-01-25 06:48 | MR_ITS ---
The [address] [address] Patient Name: LEVI SY MRN: [id number] date: 1985 Sex: F Assigned Patient Location: MRI Current Patient Location: Accession/Order Number: [id number] Exam Date: 01/25/2024 07:31 Report Date: 01/26/2024 15:04 At the request of: ADELINE QUIÑONES Procedure: MR foot RT wo con EXAM: MR foot RT wo con HISTORY: Mid Foot Arthritis, Right Foot Sprain COMPARISON: 01/12/2024 TECHNIQUE: MRI images obtained with multiple sequences. MRI of the right foot without contrast. FINDINGS: No acute bone marrow edema. Achilles tendon and plantar fascia are intact. Extensor and flexor tendons are intact. Muscle bulk of the forefoot is preserved. Lisfranc ligament is intact. Anterior and posterior syndesmotic ligaments are intact. Anterior talofibular, posterior talofibular and calcaneofibular ligaments are intact. No significant subcutaneous soft tissue edema about the foot. MR/MR foot RT wo con IMPRESSION: 1. No acute tendinous or ligamentous abnormality. 2. No acute fracture. No acute bone marrow edema. 3. Extensor and flexor tendons are intact. Electronically authenticated by: FERMÍN DOMINGUEZ Date: 01/26/2024 15:04
== END 2024-01-25 06:43 | disposition home or self-care (01) ==
LOC: MRI 06:42
PROVIDERS: PCP Nurse Practitioner Family; Visit Provider Physician Assistant
DX: M19.071 Primary osteoarthritis, right ankle and foot (principal)
CPT/HCPCS: 73718

== ENCOUNTER 2024-02-12 13:47 | Outpatient (RCR) | payer OTHER, SELFPAY | END 2024-03-26 16:46 | disposition home or self-care (01) | LOC: PT 13:47 | PROVIDERS: PCP Nurse Practitioner Family; Visit Provider Podiatrist Foot & Ankle Surgery | DX: M25.571 Pain in right ankle and joints of right foot (principal); M77.8 Other enthesopathies, not elsewhere classified | CPT/HCPCS: 97035; 97110; 97112; 97140; 97161 ==

== ENCOUNTER 2024-03-21 15:50 | Outpatient (OUT) | payer OTHER, SELFPAY ==
--- OUTSIDE RECORDS SUMMARY | 2024-03-21 15:55 | XMS_ITS | CCD ---
Author Organization [facility] Care Team Providers Care Behavioral Intervention Specialist Name Role Phone BLANCA Unavailable Unavailable BLANCA MORTON Unavailable Unavailable Ignacia Acosta Unavailable DianCoronaie Unavailable IGNACIA RAY Admitting Unavailable IGNACIA RAY Attending Unavailable IGNACIA RAY Primary Care Unavailable IGNACIA RAY Consulting Unavailable RAAD HUGHES Consulting Unavailable Medications Current Medications Medication Drug Class(es) Dates Sig (Normalized) Sig (Original) [id number] 200 actuat albuterol 0.09 mg/actuat metered dose [...] RAAD HUGHES Date: 2022-10-28 17:27 Normal [facility] COVID/FLU RT-PCRon 2 SARS-CoV-2 (COVID-19) RNA TOBY+probe Ql (Unsp spec) Positive [employer] Other COVID/FLU RT-PCR Negative Flash [facility] [employer] Other Coding Summaryon 05-17-2021 Coding Summary HTMLBase 64 XjiiglsnBLe4xUw+PGhlYW Q+JK6XYYAmK76aqMTkoO5A W3wGSZ9JMGZLXGQYNZ1OQU 6raAK5JFmqZ2WcriNz SxuzwULqTV71RPs2QBX5lT qeCEljfA7toTQiC8w4DcXb FD21xL49RQufRCQcFbI6Lh ZpbjsgbWFy Z1bgLvPxxCLwSlp+PHRhYm xlIHdpZHRoPScxMDAlJyBz jYuzWK7uLw6nKZClYZVjpU xhcHNlOiBj s1weTRBzUWueQG8ubAteA5 TggLZ9FQJde9k7Nw99mDC+ YGOnVCC5gCcmNDtnb556Cn Ebe0waIIQ7 nNBaRKfqUMN6P91tr3N4QP RoIWKeOPO8mOF4xL6fdMod qhkyD9KwkNFrCyX9SBR2xW VsvH5fdLpd begqpA0vXti+W22LDF1ECT XQVH7QUcn7Q1HsPdsxfWB+ YF00XUAxAJ38gBNvrEPjy0 mgiTo5LlPd LPUzAOD6vUiqRMoxd7ChNT LeY66nnPHzt3N3JPNmfUix nJRkFdFcwZN5fY2gASzshe vxl1ccdodt Nczmd2ujrp42lP59B47rCK sdTOLqINF1QCKaMDHdwXuo cl4qaP3wUv7+DEdyb1ezi4 ksgBl7DkZb WWYqdfWkpGapTRF7m8OdLe 12Q4EsoHkil5MiOgt2sp14 kEWxf0U0xPI1FBsaWMRljO 5vYWaaJoJ3 XYLjEoNyyM35rHLiRGyaVi 6evEkxpMaxHO7fTDRlyqoy HOVrwX5eWMCrlHGgoBfrZL 4wNTBpbjtm b156YyVsVNZ8PYOdjTZaW7 QcpL1eCzYhSAIlSUYbT7Gp fPSqIPkhX776GXmsBxE6NE LwblVhX9Ox OMBzdCfeSgL0m5U0Gc1Vy5 VdwuauSID3EXlyDOR2GuI1 TeLxCwU6B3SwGfh2LFGntH zvPY8aL8Lg NHDsvbbapsatjOE1YRQfAK FhoV16cVKeMFlrTb3hk6H4 g887WRMaQDYyoB21At0aeZ ogMTBwdCBU gT1ilmhkl6oucvskJdVsQF QkLMp2YZb9RRHnyXoqJjSf VXY4FsC5WBA7xLSqiC1edD qrjhflrS9j Oyc+B22wgT5gJCY4LNX3lg ssKVXhchGiFA03SH12C8Km PjwvdGFibGU+PGRpdiBzdH qrKG6hWsZa s5hny5BgWZthY4XaFPYiNN ydXuu6ZBXqAUV3rXU6nW8l YXWwDBimo1K7cYK6L9Jkum Dtoh8mi9fa ILPjZFbgT65ibRYxn6V3NC AmcKX8XVXwlBalCkOntG31 Oyc+DLYixZtln0WeNlxfd5 awl7rvwDh7 QzKpMECbqnApnLpgAIN2b4 EmKr38G31oZMauGTYdBTEc ZVLxSLCfmHbwuu7xcD1hMj 8+PGNvbCB3 kDT9gU8hDSBpUlZ8QKcuT4 54FbMxbZZcSnirz7lij4ov sKx4PyUrDERjqjCmpIujRG D9f7CjWw10 L59qZJliVHXfFAKvDLLyZK DveWvfbe7kmN8wEs2+PC9j n2bnie38nS25mUY+PHRkIH H8gAwtGJxg RNBebZ4qMStnDxW9USTjIv KihT86tZTbRBpzWo6pxIuv xQfjFK8jXUUdpjdwd217Ky Pex6ckBWLn sKBiLMpdILY4V64wk1S4NW KcYHTfXTO6ySY5gQ1twKlb bjogbGVmdDsgdmVydGljYW boCKvaD169 IHRvcDsnPlBhdGllbnQgTm KnQUu7S0KvThf9PDXbfNte EH9baFTrJVooIa6ndCuqbJ thBQ0eJSNt gocnt032SwAla0nmXCMmcO HuNPmtQNY2P12fz1V9KEQk HFYaSQV0jQH8zN3klYjxmr ogbGVmdDsg nlDpuMjjIHqqKKuoQ583BP RvcDsnPkJpcnRoIERhdGU6 DT76HS85sHRav3P3gYM7L6 BhZGRpbmct wycrxVT2VNWjJXYowN20Ou 5rzPetIo1yFFMtFXN4IPMh uOCbD4DjkK2eFzZcKQNoZV TfJ9KteHPe ARzmL426XCnhKgU2SCPrng LaO6ShDBPytPpaUjC7a6P2 Rt6XK7C4XP12CZ39zHYia0 J8aPQ5H9Zj KPUvujrwngxnyGS7WHGyPA IrrF00Wu0rxGlyKi5yRXOv LJX5MOEmjSTjM8QozP6tGc AjMDAwMDAw M6LbwOQwXQaxR231TDopMe C6EIFjrdRnZ0BzBAOacKyp UfK0x9H0Hn6CNBc6QL73YL 29qEHoy4J6 jMU4N0QbERLuzgahtosjdX Y9FXGfCWUrdH63Hq9bjDgy Bv8tFKTeGZK0DHXzoTMtK9 AcrR7aEbXd KVIeZAPbG0PcnXXrBTzzZ5 71ROidXnK3UKZnuhUoB8Li MUIlkWdkIgO7w4O3Mv6PWC FeGJ58MEF0 bVU3RW19FB71Q9VsEndmdU FibGU+PHRhYmxlIHdpZHRo OJraTPIfHnPwaXutUR0bWa 9yZGVyLWNv bPsahQJqVlKay7naPEWfSR hdBZ6vpDacD4VbsPX3BKAx v9o8Pc89B00nH6WxrWB+PG IgfQQ8fRI1 mS7yYpXdWxA1EJbgF534Ku GckHSjHzopx0yrc6yxeAr9 IrZ9PCXypbLuzDfaYSA2c3 BwYl26I47g IHdpZHRoPSIxNSUiIHZhbG rzui7vxS6vJg0+PGNvbCB3 bDB4iB8vTdHoXgC2BRmcY4 49InRvcCIv Oqeys7zea1ontZz8ZwFoPQ JdsnFzmFsvPMK4i8RgTg52 N2MsoEvip5ZbWdj5tx82zO Eby9Y1rBT5 W7SoYRDznnmuvMTevKfmFN 1qZDYqhwhjWFPuaT6qTAPk I4v8XxPkPvI2UTixF2Ijmt E2OUShnYRb OIbjQPC5G52nz0R8SXTaLZ OxNBK3wJS8cB3iiTccogrt bGVmdDsgdmVydGljYWwtYW ftX509UDBh hDtoNATunA9gQUOyvOElsE goGU0lCFGgoocjRaAOB6IY MzvlR7JKUPRCFMMLWA49QR 24rPRtl2Z4 iTM9D6YfKTOrbghsetrwoJ T1AQXyQBBnyQ33mXQmMCgk Ka0vk9Z2s851EYYkVSIyiS 40Lg3jvGmp LWHvaBDZjI5hmqnoj2bbav iiGqLnVNMrQKg7OGd5ONVb tCnwXfRhBQX2BbL4BCB2tX YeiJ1lxSml vzuioR5sTrv+MDQvMTAvMT x8EFzphEF+BIYxVAV8rSeg XUcyNQZpqG1xZAXqM6a8Qp TjZjP1TTlo Z6YzTJNxqwlhXe95dF0fHm SgQxS9RGrwR6ZndoA7VMXq iNKfNFaqLEC7E38ye1W2BV MwMDAwMDA7 pZJ2jV2hxUfbtaqhyPUmiT yeojVilPcgBAumXUrrQ379 JEQknTipRjI3BXdaOZKkNL 03PZ69yHOf g8L1qLS7S5ReHVUneneacz clrGB7EQPdHMTiyQ04dSLv IJccIr9mj6B0c230AKEyQF QtrE34Mk9g yUbbNGOrrAHHkD8vrzpao5 cfksvhFcXxVGNgFRn6KZt3 UILcqJenLbTlZLN4BiF0FJ B8vMVifK8x mQkrqerfxD5bEzx+RkVNQU dZJI31YD68bEEmb6B6yDK4 D7GvAQHhjbritwckxKR0EB DqDIFitT85 qPQtWDlmCq0ls0K4t439IM HlRRSarV69Yk4yjLfiNXMr mXFEbN3yzkzzq5ehkbzqQo AwMDAwMDt0 WBu6SPOglYkeYnBgAJF6Rl D3KNV3lXQiuF9qmDjzibqz oV3hVyc+X1S7V0BbZelxxQ I+AK76QCJo YF34cHAhkSGvl6bjqMz4Ch CsTDCjAQA0pDvxPCczy4Fa LGJzP69bcOLuk3N9ZSZueM xhcHNlOyBl wAN8uI4iTPsvugvia3svyu gtNcjnm8nkqf68cT64G67c IHdpZHRoPSIzMCUiIHZhbG ktfu4kiY1h Ii8+WNHslAI0tHY4tD3cKe NvLbP0GHpbP183XlPljDLn Kyjfa5aqf9aeqKa4HaFdKH IgdmFsaWdu IDA4w2TfGz33I78aHHpaSR MqONZhOILgTXTlsUzncx4s tD6yXa3+TL8qd1icpd98cR 48dHI+PHRk ZWJ4zQsyAJmtPFZvlN2iMK rgEsW2QKOiQlVfdE27lWGj OFfjBt4rvNmieOgwPU3jHT Vfukkkt968 BmZyr7efPUXvtLWtKDloOB F2E72jx4K5TWDsJZAyERU7 vZP0bS0wjVhgyziavTSpgN sgdmVydGlj INujQAluP294FWJkoNobKc ElfYZgJ8cgibFCLF9lVpeh dGQ+MDKpVOB0bTvqLHfiGQ HllO7cLNUv R8j1LeXhWkJ6WDnqW7Pqhr N0LSWnjKTsVCUljTTXyV4z cqyyk7xzrfjjKkNlBSUcIX y1KPj4HCPj oQhkXxSaGVU6TrE4IPL4xV ZydD0siRmfxwsimQ2sTbb+ RklOOjwvdGQ+VKEtTDK9lZ xlPSdwYWRk uO9sYNHcV5a3LkBfFvY3LK ueE0GiiqG6GSVxgFYpKKTi mUKYyK0wlskiw8wuxohhAc AwMDAwMDt0 DFz9KAZguKuxWpXqRMF8Lb X7NTT4yUGydH8fpAjssxog hV3cIlw+TVJOOjwvdGQ+PH FmJEA5cZsi YErkMMYriU6rEUJvZ3p5Ef FaFmT4HGakK0YrabN4XABf jURsZYPwxGBGuO0nwrdwj8 xvcjogIzAw RDOtODl3TPy7WXEvuZmfUa YmAYY4DnC6ACL8lHNlsV7w kDusmnuaeK0wUnz+UGF5ZX T5OB42MR18 Y3JhVsbmwPHlyKI+PHRhYm xlIHdpZHRoPScxMDAlJyBz iQotHF1qPq9uTLMsGCNhqL xhcHNlOiBj b2x (more content not included)... Normal [facility] ED Clinical Summaryon 2020 ED Clinical Summary [facility] ? Urgent Care [address] [place], [place] [id number] Clinical Summary PERSON INFORMATION Name: GABBY COREAS Age: 35 Years Sex: FEMALE : 1985 MRN: Acct#: Visit Reason: Eye problem; UC - Eye Pain; LT EYE IRRITATION Arrival: 05/14/2021 14:57:24 Discharge: 05/14/2021 16:10:00 LOS: 000 01:13 Check In: 05/14/2021 14:57:24 Checkout: 05/14/2021 16:10:00 Address: [address] [place] [address] [address] [facility] [id number] PCP: Nancy Sterling PROVIDER INFORMATION Provider Role [...] Follow-Up: With: Address: When: ROSHAN SOTOMAYOR [address] [place] [address] Business (1) Within 1 to 2 days Comments: Call Dr. Sotomayor's office to make a follow-up appointment in the next 1 to 2 days. With: Address: When: Nancy Sterling [address], [address] [place] [address] Business (1) Within 2 to 4 days Comments: Discharge diagnosis of bacterial conjunctivitis, infection of the lacrimal duct. There is no foreign body seen. Weldon lamp negative for corneal abrasions Begin Antibiotic eyedrops of tobramycin to left eye as directed Begin Keflex 500 mg every 8 hours neck 7 days. Off work for today. Apply warm compresses. Without fail follow-up with him specialists. DIAGNOSIS: Acute bacterial conjunctivitis of left eye; Decreased visual acuity; Discharge of eye, left; Infection of left lacrimal duct; Left eye pain; Pain and swelling of lower eyelid of left eye Patient Understands: Yes - Patient/family/caregiv er verbalizes understanding of instructions given Comment: Normal [facility] ED Patient Summaryon 021 ED Patient Summary [facility] ? Urgent Care [address] [place] [address] PATIENT DISCHARGE INSTRUCTIONS Patient Information Name: GABBY COREAS Age: 35 Years Date of : 1985 [facility]: [id number] Reason For Visit: Eye problem; UC - Eye Pain; LT EYE IRRITATION Arrival Time: 05/14/2021 14:57:24 Primary Care Physician: Nancy Sterling Attending Physician: Jose Mistry Comment: Patient Education With: Address: When: ROSHAN SOTOMAYOR [address] [place] [address] Business (1) Within 1 to 2 days Comments: Call Dr. Sotomayor's office to make a follow-up appointment in the next 1 to 2 days. With: Address: When: Nancy Sterling [address], [facility] [address] [place], [place] [id number] Business (1) Within 2 to 4 days Comments: Discharge diagnosis of bacterial conjunctivitis, infection of the lacrimal duct. There is no foreign body seen. Weldon lamp negative for corneal abrasions Begin Antibiotic eyedrops of tobramycin to left eye as directed Begin Keflex 500 mg every 8 hours neck 7 days. Off work for today. Apply warm compresses. Without fail follow-up with him specialists. Bacterial Conjunctivitis, Adult Bacterial conjunctivitis is an [...] to feel better. ? Take or apply awip-jnf-[id number] and prescription medicines only as told by [...] you grover (more content not included)... Normal [facility] Eye Cultureon 05-14-2021 Eye Culture Light growth of Staphylococcus epidermidis Normal skin deborah isolated No pathogens isolated Rare epithelial cells 1+ White Blood Cells No organisms seen. Normal [facility] Comment on above: Performed By: #### 2 [id number] #### [facility] (DEFAULT) [address] [place] [address] Urgent Care Note- Provideron 05-14-2021 Urgent Care [...] glaucoma. She does not have an active him specialists. ALL: NKDA Social: Nonsmoker. No Etoh. Lives in [place] Review of Systems Constitutional symptoms: No fever, [...] irritation a (more content not included)... Normal [facility] Urgent Care [place] 021 Urgent Care Record [facility] ? Urgent Care [address] [place] [address] PATIENT DISCHARGE INSTRUCTIONS Patient Information Name: GABBY [...] Discharge of eye, left (H57.89) Eye problem ([id number]) Infection of left lacrimal duct (H04.302) Left eye pain (H57.12) Pain and swelling of lower eyelid of left eye (H02.89) UC - Eye Pain ([id number]) If you received any narcotics, sedation, or [...] documents With: Address: When: ROSHAN SOTOMAYOR [address] [place] [address] Business (1) Within 1 to 2 days Comments: Call Dr. Sotomayor's office to make a follow-up appointment in the next 1 to 2 days. With: Address: When: Nancy Sterling [address] [place] [address], [address] [place] [address] Business (1) Within 2 to 4 days Comments: Discharge diagnosis of bacterial conjunctivitis, infection of the lacrimal duct. There is no foreign body seen. Weldon lamp negative for corneal abrasions Begin Antibiotic eyedrops of tobramycin to left eye as directed Begin Keflex 500 mg every 8 hours neck 7 days. Off work for today. Apply warm compresses. Without fail follow-up with him specialists. Medication Information: The exam and treatment you received today in the [facility] were for an urgent problem and are not intended as complete care. It is important for you to follow up with a doctor, nurse practitioner, or physician?s dental hygiene administrative assistant for ongoing care. If your symptoms [...] so we can reach you if necessary. [facility] has provided you with a complete list of medications post discharge. Please inform your rn primary care/provider of your visit and for further instruction on these medications. Any specific questions regarding your chronic medications and dosages should be discussed with your primary care physician(s) and/or pharmacist. New Medications [facility], [address] [place] [address] [phone], [phone] cephalexin (Keflex 500 mg oral capsule) 1 [...] Items han (more content not included)... Normal [facility] Basic Metabolic Panelon 02-2 6-2021 Calcium [Mass/Vol] 8.9 mg/dL Normal 8.2-10.2 [facility] Comment on above: Performed By: #### C BC, BMP #### [facility] [address] Chloride [Moles/Vol] 104 mmol/L Normal 95-114 [facility] Comment on above: Performed By: #### C BC, BMP #### [facility] [address] CO2 [Moles/Vol] 19.7 mmol/L Low 22.0-30.0 [facility] Comment on above: Performed By: #### C BC, BMP #### [facility] [address] Creatinine [Mass/Vol] 0.70 mg/dL Normal 0.44-1.03 [facility] Comment on above: Performed By: #### C BC, BMP #### [place] [address] [place] Creatinine Clr Calc Pharmacy 125.80 [facility] Comment on above: Result Comment: PERF ORMED BY: [place] [address] PATHOLOGIST CAR CLEANER MELVIN MAI M.D. Performed By: #### C BC, BMP #### [address] Estimated GFR ( Sharon > 60 [facility] Comment on above: Result Comment: GFR estimated reference range: According to KDOQI guidelines, <60 ml/min/1.73m2 is sufficient to diagnose a patient with chronic kidney disease. Performed By: #### C BC, BMP #### [facility] [address] Estimated GFR (Non- Am > 60 [facility] Comment on above: Performed By: #### C BC, BMP #### [facility] [address] Glucose [Mass/Vol] 97 mg/dL Normal 70-100 [facility] Comment on above: Result Comment: [place] om Glucose Reference Range is dependent on time and content of last meal. Glucose of more than 200 mg/dL in a nonstressed, ambulatory subject supports the diagnosis of Diabetes Mellitus. ADA recommended reference range Performed By: #### C BC, BMP #### [address] Potassium [Moles/Vol] 4.0 mmol/L Normal 3.5-5.1 [facility] Comment on above: Performed By: #### C BC, BMP #### [address] Sodium [Moles/Vol] 134 mmol/L Low 136-146 [facility] Comment on above: Performed By: #### C BC, BMP #### [address] Urea nitrogen [Mass/Vol] 10 mg/dL Normal 9-23 [facility] Comment on above: Performed By: #### C BC, BMP #### [address] Complete Blood Count Auto Di ffon 10-19-2020 Basophils (Bld) [#/Vol] 0.1 10*3/uL Normal 0.0-0.2 [facility] Comment on above: Result Comment: PERF ORMED BY: [place] [address] PATHOLOGIST CAR CLEANER MELVIN MAI M.D. Performed By: #### C BC, BMP #### [place] [address] [place] Basophils/100 WBC (Bld) 0.8 % Normal . [facility] Comment on above: Performed By: #### C BC, BMP #### [place] [address] [place] Eosinophils (Bld) [#/Vol] 0.1 10*3/uL Normal 0.0-0.45 [facility] Comment on above: Performed By: #### C BC, BMP #### [place] [address] [place] Eosinophils/100 WBC (Bld) 1.3 % Normal . [facility] Comment on above: Performed By: #### C BC, BMP #### [facility] [address] Erythrocyte distribution width (RBC) [Ratio] 14.5 % Normal 11.9-15.3 [facility] Comment on above: Performed By: #### C BC, BMP #### [address] Hematocrit (Bld) [Volume fraction] 34.1 % Normal 34.0-46.4 [facility] Comment on above: Performed By: #### C BC, BMP #### [address] Hemoglobin (Bld) [Mass/Vol] 11.9 g/dL Normal 11.8-15.4 [facility] Comment on above: Performed By: #### C BC, BMP #### [address] Lymphocytes (Bld) [#/Vol] 2.5 10*3/uL Normal 1.00-4.8 [facility] Comment on above: Performed By: #### C BC, BMP #### [address] Lymphocytes/100 WBC (Bld) 34.7 % Normal . [facility] Comment on above: Performed By: #### C BC, BMP #### [address] MCH (RBC) [Entitic mass] 29.3 pg Normal 24.7-34.3 [facility] Comment on above: Performed By: #### C BC, BMP #### [address] MCV (RBC) [Entitic vol] 83.8 fL Normal 80-100 [facility] Comment on above: Performed By: #### C BC, BMP #### [address] Mean Corpuscular HGB Conc 34.9 g/dL Normal 32.0-35.0 [facility] Comment on above: Performed By: #### C BC, BMP #### [facility] [address] [place] [address] [place] Monocytes (Bld) [#/Vol] 0.4 10*3/uL Normal 0.0-0.8 [facility] Comment on above: Performed By: #### C BC, BMP #### [facility] [address] [place] [id number] [place] Monocytes/100 WBC (Bld) 4.9 % Normal . [facility] Comment on above: Performed By: #### C BC, BMP #### [facility] [address] [place] [address] [place] Neutrophils (Bld) [#/Vol] 4.2 10*3/uL Normal 1.8-7.7 [facility] Comment on above: Performed By: #### C BC, BMP #### [facility] [address] [place] [address] [place] Neutrophils/100 WBC (Bld) 58.3 % Normal . [facility] Comment on above: Performed By: #### C BC, BMP #### [facility] [address] [place] [address] [place] Nucleated RBC/100 WBC (Bld) [Ratio] 0.1 % Normal 0-0.5 [facility] Comment on above: Performed By: #### C BC, BMP #### [facility] [address] [place] [address] [place] Platelet mean volume (Bld) [Entitic vol] 8.6 fL Normal 6.3-10.7 [facility] Comment on above: Performed By: #### C BC, BMP #### [facility] [address] [place] [id number] [place] Platelets (Bld) [#/Vol] 298 10*3/uL Normal 150-450 [facility] Comment on above: Performed By: #### C BC, BMP #### [facility] [address] [place] [id number] [place] RBC (Bld) [#/Vol] 4.06 10*6/uL Normal 3.60-5.00 [facility] Comment on above: Performed By: #### C BC, BMP #### [facility] [address] [place] [address] [place] WBC (Bld) [#/Vol] 7.2 10*3/uL Normal 4.5-11.0 [facility] Comment on above: Performed By: #### C BC, BMP #### [facility] [address] [place] [address] [place] Dipstick and Microscopicon 0 10-19-2020 Appearance (U) Clear Normal Clear [facility] Comment on above: Order Comment: Name Collection Type:: Clean-Voided Midstream Performed By: #### U HCG, ADDONUAPLUS #### [address] Bacteria,Urine None Seen Normal None Seen [facility] Comment on above: Order Comment: Name Collection Type:: Clean-Voided Midstream Performed By: #### U HCG, ADDONUAPLUS #### [address] Bilirubin,Urine Negative Normal Negative [facility] Comment on above: Order Comment: Name Collection Type:: Clean-Voided Midstream Performed By: #### U HCG, ADDONUAPLUS #### [address] Color (U) Yellow Normal Yellow [facility] Comment on above: Order Comment: Name Collection Type:: Clean-Voided Midstream Performed By: #### U HCG, ADDONUAPLUS #### [place] [address] [place] Glucose Ql (U) Normal Normal Normal [facility] Comment on above: Order Comment: Name Collection Type:: Clean-Voided Midstream Performed By: #### U HCG, ADDONUAPLUS #### [place] [address] [place] Hyaline Casts,Urine 0-8 Normal 0-8 [facility] Comment on above: Order Comment: Name Collection Type:: Clean-Voided Midstream Performed By: #### U HCG, ADDONUAPLUS #### [facility] [address] [place] [address] Ketones Ql (U) Negative Normal Negative [facility] Comment on above: Order Comment: Name Collection Type:: Clean-Voided Midstream Performed By: #### U HCG, ADDONUAPLUS #### [address] Leukocyte esterase Test strip Ql (U) 1+ High Negative [facility] Comment on above: Order Comment: Name Collection Type:: Clean-Voided Midstream Performed By: #### U HCG, ADDONUAPLUS #### [address] Nitrite,Urine Negative Normal Negative [facility] Comment on above: Order Comment: Name Collection Type:: Clean-Voided Midstream Performed By: #### U HCG, ADDONUAPLUS #### [address] Occult Blood,Urine Negative Normal Negative [facility] Comment on above: Order Comment: Name Collection Type:: Clean-Voided Midstream Performed By: #### U HCG, ADDONUAPLUS #### [address] pH (U) 5.5 [pH] Normal 5.0-9.0 [facility] Comment on above: Order Comment: Name Collection Type:: Clean-Voided Midstream Performed By: #### U HCG, ADDONUAPLUS #### [facility] [address] [place] [address] Protein,Urine Negative Normal Negative [facility] Comment on above: Order Comment: Name Collection Type:: Clean-Voided Midstream Performed By: #### U HCG, ADDONUAPLUS #### [place] [address] [place] RBC LM.HPF (Urine sed) [#/Area] 0 /[HPF] Normal 0-4 [facility] Comment on above: Order Comment: Name Collection Type:: Clean-Voided Midstream Performed By: #### U HCG, ADDONUAPLUS #### [address] [place] [address] [place] Specificy [place],Urine 1.011 Normal 1.001-1.030 [facility] Comment on above: Order Comment: Name Collection Type:: Clean-Voided Midstream Performed By: #### U HCG, ADDONUAPLUS #### [address] Squamous Epithelial Cell,Urine 5-9 High 0-2 [facility] Comment on above: Order Comment: Name Collection Type:: Clean-Voided Midstream Performed By: #### U HCG, ADDONUAPLUS #### [address] Urobilinogen,Urine Normal Normal Normal [facility] Comment on above: Order Comment: Name Collection Type:: Clean-Voided Midstream Performed By: #### U HCG, ADDONUAPLUS #### [address] WBC,Urine 3-4 Normal 0-4 [facility] Comment on above: Order Comment: Name Collection Type:: Clean-Voided Midstream Performed By: #### U HCG, ADDONUAPLUS #### [address] HCG,Urineon 10-19-2020 Beta HCG ( test) Ql (U) Negative Normal [facility] Comment on above: Order Comment: Name Collection Type:: Clean-Voided Midstream Result Comment: PERF ORMED BY: [place] [address] PATHOLOGIST [employer] MELVIN MAI M.D. Performed By: #### U HCG, ADDONUAPLUS #### [address] PROGRESSon 02-22-2017 PROGRESS HNO ID: [id number]: Blanca Aguero: (none)Author Type: PhysicianType: Progress NotesFiled: 02/22/2017 11:31 AMNote Text:DATE OF SERVICE: 02/18/2017PROBLEM: Gabby Coreas presents for postop visit.SURGERY AND DATE: 02/05/2017Laparoscopic right salpingo-[id number] and left ovarian cystectomyPATHOLOGY: NAL DIAGNOSIS1. Right [...] lb 3.2 oz) LMP 01/19/2017 BMI 40.81 kg/s3AAHBX: Normocephalic, atraumatic, mucus membranes moist and no [...] I advised her to continue her routine accuracy expert exam and cervical screening4. I advised her to call my office with any issue or concern especially ifrelated to the surgeryBlanca Morton MD, MPHCC:Storm Thurman, LISSETT Clark (PCP) Normal [facility] CNOVon 02-18-2017 CNOV Office Visit (GYNOSA) GABBY COREAS ([id number]) 1985 FDate Time Provider Department02/18/17 3:20 PM [...] for postop visit.SURGERY ANDamp; DATE: 02/05/2017Laparoscopic right salpingo-[id number] and left ovarian cystectomyPATHOLOGY:[facility] DIAGNOSIS1. Right ovary and fallopian [...] (223 lb 3.2 oz) LMP 01/19/2017 BMI40.81 kg/f7HNOHF: Normocephalic, atraumatic, mucus membranes moist and no [...] I advised her to continue her routine accuracy expert exam and cervical screening4. I advised her to call my office with any issue or concern especially ifrelated to the surgeryBlanca Morton MD, MPHCC:Storm Thurman, LISSETT Clark (PCP)Referring Provider: BLANCA MORTON [[id number]]Allergies As of Date: 02/18/2017(No Known Allergies)Date Reviewed: [...] some discomfort.Follow-up and Disposition History RecordedEncounter Number: [id number] Status:Closed by BLANCA MORTON MD on 02/22/[address] [facility] Vital Signs Date Time Vital Sign Value Performing Clinician Facility 08-28-2022 17:45-0500 Body height 157.48 cm Paige Biggs Other [facility] Other 08-28-2022 17:45-0500 Body mass index (BMI) [Ratio] 41.7 kg/m2 Paige Biggs Other [facility] Other 08-28-2022 17:45-0500 Body temperature 98.1 [degF] Paige Biggs Other [facility] Other 08-28-2022 17:45-0500 Body weight 103.42 kg Paige Biggs Other [facility] Other 08-28-2022 17:45-0500 Diastolic blood pressure 75 mm[Hg] Paige Biggs Other [facility] Other 08-28-2022 17:45-0500 Respiratory rate 18 /min Paige Biggs Other [facility] Other 08-28-2022 17:45-0500 SaO2% (BldA) [Mass fraction] 99 % Paige Biggs Other [facility] Other 08-28-2022 17:45-0500 Systolic blood pressure 129 mm[Hg] Paige Biggs Other [facility] Other 08-11-2022 11:15-0500 Body height 157.48 cm Ignacia Acosta Other [facility] Other 08-11-2022 11:15-0500 Body mass index (BMI) [Ratio] 41.7 kg/m2 Ignacia Acosta Other [facility] Other 08-11-2022 11:15-0500 Body temperature 98 [degF] Ignacia Acosta Other [facility] Other 08-11-2022 11:15-0500 Body weight 103.42 kg Ignacia Acosta Other [facility] Other 08-11-2022 11:15-0500 Respiratory rate 18 /min Ignacia Acosta Other [facility] Other 08-11-2022 11:15-0500 SaO2% (BldA) [Mass fraction] 98 % Ignacia Acosta Other [facility] Other Encounters Encounter Date Encounter Type Care Provider Facility Start: 10-28-2022 End: 10-29-2022 ambulatory IGNACIA RAY Facility: Start: 08-28-2022 End: 08-28-2022 ambulatory Paige Biggs Other [facility] Other Start: 08-28-2022 Office outpatient visit 15 minutes Paige Biggs [facility] Start: 08-11-2022 End: 08-11-2022 ambulatory Ignacia Acosta Other [facility] Other Start: 08-11-2022 Office outpatient ne w 20 minutes Ignacia Karla [facility] Start: 02-18-2017 End: 02-18-[address] [facility] Start: 02-05-2017 End: 02-06-2017 Ambulatory [facility] Payers Date Payer Category Payer Unknown [id number] 1960 Private Health Insurance [id number] Social History Date Type Detail Facility Sex Assigned At [facility] Other Evaluation note 08-28-2022 Note Date & [...] weeks for the cough to go away [facility] Other Evaluation note 08-11-2022 Note Date & [...] days. Jul, Acute cough (ICD-10 - R05.1) [facility] Other Clinical Note 05-14-2021 Note Date & [...] to feel better. ? Take or apply [id number] and prescription medicines only as told by [...] provider. Document Revised: 11/29/2019 Document Reviewed: 03/16/2019 [employer] Patient Education ? 2020 [employer] [facility] Summary Purpose Family History No Family History Records FoundNo Family History Records FoundNo Family History Records FoundNo Family History Records FoundNo Family History Records Found Advance Directives No Advanced Directives Records FoundNo Advanced Directives Records FoundNo Advanced Directives Records FoundNo Advanced Directives Records FoundNo Advanced Directives Records Found Additional Source Comments INFORMATION SOURCE (unrecogn ized section and content) DATE CREATED AUTHOR 02/17/2018 [facility] DATE CREATED AUTHOR AUTHOR'S ORGANIZ ATION 02/17/2018 [facility] DATE CREATED AUTHOR AUTHOR'S ORGANIZ ATION 05/25/2021 [facility] DATE CREATED AUTHOR AUTHOR'S ORGANIZ ATION 09/08/2021 [facility] DATE CREATED AUTHOR AUTHOR'S ORGANIZ ATION 10/30/2022 [facility] REASON FOR VISIT (unrecogniz ed [...] BE BASED ON THE PRIMARY CLINICAL RECORDS. [facility] provides no warranty or guarantee of the accuracy or completeness of information in this document.
[2024-03-21 16:32] LABS: Free T3 2.91 pg/mL (2.18-3.98); Thyroid Stimulating Hormone 3.302 uIU/mL (0.358-3.740)
== END 2024-03-21 15:51 | disposition home or self-care (01) ==
LOC: LAB 15:51
PROVIDERS: PCP Nurse Practitioner Family; Visit Provider Nurse Practitioner Family
DX: E03.9 Hypothyroidism, unspecified (principal)
CPT/HCPCS: 36415; 84436; 84443; 84481

== ENCOUNTER 2024-04-26 08:19 | Outpatient (OUT) | payer OTHER, SELFPAY ==
--- NOTE | 2024-04-20 13:23 | V.VEINS.HP ---
Vital Signs 04/26/24 08:31 Height 5 ft 2 in Weight 113.398 kg BMI 45.7 Respiration 16 Pulse 85 Pulse Source Monitor Pulse Oximetry (%) 98 Oxygen Delivery Method Room Air Varicose Veins Patient is a 38 year old female in this day Debra GALEANA secondary to chronic foot/leg edema to right foot. Patient c/o right foot pain for approximately 9 months. Patient denies trauma to the area. 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 Patient also c/o pain after sitting for long periods of time. Patient has worn bilateral leg compression stockings prescribed from Debra GALEANA with no resolve of the pain. Patient also c/o bilateral leg edema. Patient denies history of blood clots, family history of varicose veins, nor any history of varicose vein disease/treatments. Jm Fishman MD personally performed the services described in this documentation, as scribed by Jason Costa RN in my presence and it is both accurate and complete. Jason Fishman RN, am scribing for, and in the presence of, Dr. Jm Loomis and in the presence of the patient. . knee: bilateral (symptoms most noted to right foot), calf: bilateral, ankle: bilateral and vance: bilateral aching, burning, cramping, dull and tender 9 months Worsened in recent months: Yes standing and sitting elevating extremities and other (massaging areas) Reports muscle spasms of leg, heaviness, limb pain, edema and leg edema History of lower extremity trauma: No Superficial thrombophlebitis: No Family history of varicose veins: no Has patient had previous lower extremity venous surgery: No Patient has previously received the following treatment(s) for lower extremity varicose veins: Reports none Does patient have a history of : yes Does patient intend to have future pregnancies: no Has patient had lower extremity venous scan with relux testing: No Support hose used: Yes Problems walking or doing physical activity: Yes How does it affect you: dificulty due to pain Do you walk much: Yes Do you stand much: Yes Review of Systems ROS Narrative Jm Fishman MD personally performed the services described in this documentation, as scribed by Jason Costa RN in my presence and it is both accurate and complete. I, Jason Igor RN, am scribing for, and in the presence of, Dr. Jm Loomis and in the presence of the patient. Status of ROS 10 or more systems reviewed and unremarkable except as noted in history and below Cardiovascular Reports: edema Integumentary/Breast Reports: skin tenderness and skin swelling Neurological Reports: weakness in extremities [facility] Medical History (Updated 04/26/24 @ 08:43 by Jason Costa) Varicose veins of bilateral lower extremities with pain ?I83.813 - Varicose veins of bilateral lower extremities with pain (ICD-10) Bilateral leg edema ?R60.0 - Localized edema (ICD-10) Osteoarthritis ?M19.90 - Unspecified osteoarthritis, unspecified site (ICD-10) Calcified lymph nodes ?I89.8 - Other specified noninfective disorders of lymphatic vessels and lymph nodes (ICD-10) Calcified granuloma of lung ?J84.10 - Pulmonary fibrosis, unspecified (ICD-10) Obesities, morbid ?E66.01 - Morbid (severe) obesity due to excess calories (ICD-10) Surgical History (Updated 04/26/24 @ 08:41 by Jason Costa) H/O oophorectomy H/O dilation and curettage ?Z98.890 - Other specified postprocedural states (ICD-10) H/O laparoscopy ?Z98.890 - Other specified postprocedural states (ICD-10) Family History (Updated 04/20/24 @ 13:36 by Jason Costa) Father Family history of diabetes mellitus Other Lupus Social History (Updated 04/26/24 @ 08:42 by Jason Costa) Within the past year, how often did you have a drink containing alcohol: 2-4 times a month Smoking status: Never smoker Non-prescribed substance use: denies use Meds Home Medications and Allergies Home Medications ?Medication ?Instructions ?Recorded ?Confirmed ?Type cholecalciferol (vitamin D3) 50 04/26/24 History mcg (2,000 unit) capsule diclofenac sodium 75 mg mg PO 04/26/24 History tablet,delayed release Exam Narrative Exam Narrative: Jm Fishman MD personally performed the services described in this documentation, as scribed by Jason Costa RN in my presence and it is both accurate and complete. Jason Fishman RN, am scribing for, and in the presence of, Dr. Jm Loomis and in the presence of the patient. Constitutional Documenting provider has reviewed patient's vital signs: yes Common normals: oriented x3 Nutritional appearance: overweight Lymph Lymphatic: no lymphedema noted Cardio Peripheral pulses: posterior tibial pulses present and dorsalis pedis pulses present Extremity Common normals: normal capillary refill General: calf tenderness and edema Right lower extremity: lower leg Right lower leg: inspection and palpation Left lower extremity: lower leg Left lower leg: inspection and palpation Neuro Common normals: oriented x3 Results Additional Findings Additional findings: Bilateral leg reflux u/s reveals abnormally dilated and incompetent bilateral great saphenous veins along with left anterior accessory saphenous veins, and lastly inompetnet bilateral leg branch saphenous truncal tributary veins. Jm Fishman MD personally performed the services described in this documentation, as scribed by Jason Costa RN in my presence and it is both accurate and complete. Jason Fishman RN, am scribing for, and in the presence of, Dr. Jm Loomis and in the presence of the patient. Assessment and Plan Assessment and Plan (1) Varicose veins of bilateral lower extremities with pain: Plan Plan is for patient continue use of bilateral leg compression stockings, rest, and elevation bilateral legs/feet. Patient to return for EVLT's of left GSV, right GSV, and left AASV. Once EVLT's care complete, move forward with microfoam chemical ablation bilateral leg branch saphenous varicosities. Jm Fishman MD personally performed the services described in this documentation, as scribed by Jason Costa RN in my presence and it is both accurate and complete. Jason Fishman RN, am scribing for, and in the presence of, Dr. Jm Loomis and in the presence of the patient.
--- NOTE | 2024-04-20 13:39 | W.VEIN ---
Discharge Plan Discharge Disposition: Home, Self-Care Outpatient Diagnostics: VC Endovenous Ablation 1VeinLT (Routine) Timeframe: 2 Months Facility: [facility] - Location: [facility]in Center Ordered By: Jm Loomis Plan of Treatment: EVLT of left GSV Print Language: Yi Discharge Date/Time: 04/26/24 13:06
--- NOTE | 2024-04-26 08:23 | VEIN_ITS ---
Patient Name: LEVI SY MR#: [id number] : 1985 Exam Date: 04/26/2024 Ordering Doctor: DR RAAD ANDUJAR M.D. RADIOLOGY REPORT PROCEDURE: [facility] FACILITY EST [facility] - OFFICE VISIT INITIAL COMPARISON: None. PROGRESS NOTES: [age] year old female who presents with a 9 month history of lower extremity swelling, heaviness, right foot pain. The patient's right leg symptoms are worse than the left. There has been a progression of symptoms over time. This increases with prolonged standing. The patient describes an improvement with rest , elevation, and compression stockings. The patient denies any signs and symptoms to suggest arterial ischemia. The patient describes a family history of diabetes mellitus and lupus. The patient has drinking and smoking history of : Occasional alcohol consumption; no tobacco use. Patient has a past medical history significant for varicose veins, lower extremity edema, obesity, osteoarthritis. The patient denies a history of deep venous thrombus or pulmonary embolus. See separate history and physical for medication list. No prior treatment for varicose or spider veins. Current use of compression stockings. After review of nurse notes, history and physical exam I discussed at length the pathophysiology of venous hypertension and possible treatments, therapies and strategies available. We discussed at length the importance of elevating the lower extremities above the level of the heart, increased physical activity and compression stocking use. Ultrasound venous reflux study performed today was discussed at length with the patient. The report demonstrates abnormally dilated and incompetent great saphenous veins bilaterally, left anterior accessory saphenous vein, and numerous abnormally dilated incompetent branch saphenous varicosities.. PHYSICAL EXAM: The right leg demonstrates several varicosities, a few scattered spider veins, no ulceration, mild edema, no skin discoloration. The left leg demonstrates several varicosities, a few scattered spider veins, no ulceration, mild edema, no skin discoloration. Both thighs, legs and feet were symmetrically warm to the touch. Good posterior tibial and dorsalis pedis pulses were present bilaterally. VEIN/ Facility EST Comprehensive IMPRESSION: 1. Bilateral lower extremity venous insufficiency 2. Bilateral lower extremity varicose veins 3. Mild-moderate bilateral lower extremity subcutaneous edema 4. No flow significant arterial disease 5. CEAP: C3, AP, , VT PLAN: 1. Continued use of compression stockings 2. Elevated legs and increased physical activity symptomatic relief 3. Intravenous laser ablation of left great saphenous, right great saphenous, left anterior accessory saphenous veins. 4. Microfoam chemical ablation of incompetent branch saphenous varicosities bilaterally 5. Bilateral sclerotherapy. Nurse notes, history and physical were reviewed and confirmed, see attached forms. The nurse was present throughout the physical exam and consultation Dictated by: Jm Loomis M.D. on 04/26/2024 at 12:49 Approved by: Jm Loomis M.D. on 04/26/2024 at 12:53
--- NOTE | 2024-04-26 08:24 | VEIN_ITS ---
Patient Name: LEVI SY MR#: [id number] : 1985 Exam Date: 04/26/2024 Ordering Doctor: DR RAAD ANDUJAR M.D. RADIOLOGY REPORT PROCEDURE: VC EXT VENOUS REFLUX SANDRA LMTD COMPARISON: None. INDICATIONS: I83.813 Bilateral painful varicose veins TECHNIQUE: Duplex imaging of the lower extremity to assess the deep and superficial venous system for the presence of deep or superficial venous incompetence and to document the location and severity of disease. The study includes evaluation of the great saphenous vein (GSV), anterior accessory saphenous vein (AASV) and small saphenous vein (SSV). Patient scanned in reverse Trendelenburg and standing. FINDINGS: RIGHT LOWER EXTREMITY: Saphenofemoral Junction Reflux: Yes 8.0mm 2.6 sec GSV: Diam (mm) Reflux/ Time (sec) Proximal Thigh 6.6 Yes 1.2 Mid Thigh 6.5 Yes 3.9 Distal Thigh 7.1 Yes 3.0 Prox Calf 6.2 Yes 3.1 Mid Calf 3.3 Yes 0.8 Saphenopopliteal Junction Reflux: 2.3mm Yes 0.7 SSV: Proximal Calf 2.4 No Mid Calf 2.6 Yes 0.7 AASV: Proximal Thigh 4.6 Yes 0.5 Mid Thigh 3.1 No Distal Thigh Thrombi: No acute or chronic thrombus visualized Compressibility: Normal Flow: Normal Preforator: Dist/med calf 3.3mm with 0s reflux. Tech Note: Incompetent GSV. Patent varicose 5.1mm with prox/med calf 3.7s reflux. Patent varicose vein dist/med thigh 4.7mm with 3.3s reflux. Patent varicose vein mid/med thigh 4.6mm with 3.2s reflux. LEFT LOWER EXTREMITY: Saphenofemoral Junction Reflux: Yes 7.4 mm 3.6 sec GSV: Diam (mm) Reflux/Time (sec) Proximal Thigh 6.5 Yes 3.3 Mid Thigh 6.0 Yes 2.2 Distal Thigh 7.0 Yes 2.9 Prox Calf 6.0 Yes 3.6 Mid Calf 3.9 Yes 1.5 Saphenopopliteal Junction Relux: 4.4 mm Yes 0.7 SSV: Proximal Calf 1.7 No Mid Calf 2.4 No AASV: Proximal Thigh 5.6 Yes 1.4 Mid Thigh 6.3 Yes 3.9 Distal Thigh Thrombi: No acute or chronic thrombus visualized Compressibility: Normal Flow: Normal [employer] Consultant: Dist/med calf 2.3mm with 0s reflux. Tech Note: Incompetent GSV and AASV. Patent varicose vein prox/med calf 3.2mm with 3.4s reflux. Patent varicose vein dist/med thigh 3.5mm with 3.7s reflux. Patent varicose vein off of AASV 5.8mm with 1.9s reflux. CONCLUSION: 1. Abnormally dilated and incompetent right great saphenous, left great saphenous, and left anterior accessory saphenous veins. 2. Bilateral abnormally dilated incompetent branch saphenous varicosities. Dictated by: Jm Loomis M.D. on 04/26/2024 at 12:47 Approved by: Jm Loomis M.D. on 04/26/2024 at 12:48
--- OUTSIDE RECORDS SUMMARY | 2024-04-26 08:26 | XMS_ITS | CCD ---
Author Organization [facility] CliniSyin Care Team Providers Care Scow Captain Name Role Phone BLANCA Unavailable Unavailable BLANCA MORTON Unavailable Unavailable Ignacia Acosta Unavailable DianCoronaie Unavailable IGNACIA RAY Admitting Unavailable IGNACIA RAY Attending Unavailable IGNACIA RAY Primary Care Unavailable IGNACIA RAY Consulting Unavailable RAAD HUGHES Consulting Unavailable Medications Current Medications Medication Drug Class(es) Dates Sig (Normalized) Sig (Original) [id number] 200 actuat albuterol 0.09 mg/actuat metered dose [...] Date: 2022-10-28 17:[address] [facility] COVID/FLU RT-PCRon 2 SARS-CoV-2 (COVID-19) RNA TOBY+probe Ql (Unsp spec) Positive [employer] Other COVID/FLU RT-PCR Negative [employer] [facility] [employer] Other Coding Summaryon 05-17-2021 Coding Summary HTMLBase 64 GkffiqhvJJw0jSd+PGhlYW Q+EW5TNMFhI57faMRxwZ0N F8jRDG1NOPKFCOEPTY9WKX 0kyNO1TVksB4CzlrXy KyownETqSF28DHl1QDP1kQ jcJCgwzM4kuBXjS7y0QzPb RW86qJ94PNsvTDZhYxR3Dc ZpbjsgbWFy H2crPdQwfOViOkl+PHRhYm xlIHdpZHRoPScxMDAlJyBz pEezJZ3zNm5zUXIzSBJjlJ xhcHNlOiBj h6npOQCgHVmsSN7klTelZ1 QtrCO7KFTla9x0Mi35yMY+ IQLyBKL0fXfcLGxrx292Zl Miw9wuVCX2 bVEwQAxcXTV5T61ca9Q2WF PjUXGtEIX8nEW4tB1goHby amskK0XleBNrKuW9FRL4uZ BreZ6ziOaj uewddF1aXsj+Y59ZYG7JQX MUQW4GAww7P1AoPikvyRO+ IR18PUWkCW84ySDlfGFmq5 hoxTx2AcPw QIKhNVY4kZhoLJlnl0NgCJ TfR91ibAIvs7D4HQKctBru qRBsSoYmhDJ1hR5iBSgltq fxl5adtiux Iveut3twwy64iT78Z65oTO xnVVGdOZF2EKNgNICphXss wm7zwN8vJw0+AJznq9smw9 uxwRp1IqBd RDKaopRciZynXYU7v0UoIn 01M7OkmTved0RlFpw9zi77 dBThg4O9vQW9MJutSWSueT 5uNYjiYwA8 AEUiRsBgaB56sIUaBWwnCb 2ydFibbElnRE3mZINvtnxv XQUfmD9qNVFstNDqmHivGP 4wNTBpbjtm l259PhQvNUU2UZGwqHOvW5 CdhV0mBsPbDHFlJLIbU4Wm pGRvCQfwJ188MWbzWjH1FU WmmuBaH1Vd SLDovDwkIpZ5x3K9Ej7Lr8 UtdcfqOLD9GKruSOR1AbP6 MuVzKqX0G4CvUpp0ZFGxhE uyEA1xS4Tg UHXwmuewaheqiNA8EHOfOC YrfK88gXZgJBnhOr5ep2Z0 y830TKGeNACauQ05Bp3glT ogMTBwdCBU lI9oagjxk4zgclamVvJeGO KxWQq9YWx1TOWiwThcGfUq CDG8NzZ0LES2gWFmtZ3vpV fcysbzqC6g Oyc+A51sbZ9yRGK1UNW6qc ssOYEgnlUoFI63NH72E5Ec PjwvdGFibGU+PGRpdiBzdH cmDO7aIqGw w4khv3TpEHbzJ4FtZAMiJD ldEgd3EIUzRYT5uZT5nJ4s VMOoGLciz0S8xIA2C8Hxsn Nmyx5dt5eh VJSiBJtxZ14zsLPhx4H5JU KluJQ9IREiqKdoJuGloV50 Oyc+ONTzxIrpc8AwCblzx9 hne7jtaZx2 SpEaRHXfiqLxiRkkMOM9o2 LgTi57E05hUAcnGSFrCPSj EOEoPOIkpQecjy6ikX4yYv 8+PGNvbCB3 kGU9bC1rDPFsNxI4UNqvW6 63QdBpySSlWazpa4mfi6qu oYy7FpClAEGookByaJvmKW C1k8MrGj84 L58bYMyeRJPwOHYgWUHhSX YqrMaoew9ilZ7aEv5+PC9j m3vhvo46wL06qWS+PHRkIH B0fOrwXOiq UUDgkH7jUHrpFrT3OSXdOo XloL69nOJlPElrZs3jiCjt kDdcXC6jRAAuxjqvc878Zw Ylt3luJRYb zEHgQEabPHT5O98im9H9XO GtGQAuXEY2aLE0mC9zmItx bjogbGVmdDsgdmVydGljYW oyXThwV535 IHRvcDsnPlBhdGllbnQgTm QvSVq3O7HhRfx5RZRkdVev LA4thWMfIXthQt3beDzlkE huWV0oAFYz sjlsa219QkHyk7rsHPPdjL LzBDsxOZN1O65bo1D4WHHb PSYdEXR5pIG7oX8ukAbkra ogbGVmdDsg icBuhShpYIcyQKtlB767WR RvcDsnPkJpcnRoIERhdGU6 RP27WP00yIOrz7Y0vUD2R2 BhZGRpbmct scptgUE8CQUrYGFxhY29Mj 8olGauEf0mTOWqNQR8CATx aXYwW7CliX5xPgKoFBMeTH TlC3FvmKNo JAxkX107KCluJsU3GBDwqo TiB4TbPSUtgQosBqL1z0S3 En1FG0J0II85AJ87mVOzk1 N0iEK7X5Xd WRXviiyaoifccIU3XCDkXA DnpJ18Ix2qkKfiGh4kZWUc EXA7QBBnlXSbA4XwtS6yDx AjMDAwMDAw I6NvjAKlTEsbA896CJyjAx J5VTVimmCuS6OoGGBuhLjt ZrZ1h8Z8Eo6SLUl5NB45UP 26aFJsx2R4 sJU9Y3KzVHVdlayyjzquoZ R8TEBpFEUtwK35Um8ssWxf Tj7nCPDfDXQ5AVSrpPKqM4 ToxB6iKkVy LTQaMXDpT2JdvWGsIQtlA6 09YTrqJkM7PQDqflCbN3Rr PSEfbKeiIdI7u2K4Dy5NDB ExUN57PGL3 eTZ7CS28LG06P7DuCzdpxZ FibGU+PHRhYmxlIHdpZHRo WRegLHOxFbTwlEqdXN7pEy 9yZGVyLWNv nRltiJFuWaLkl7fhASScJA zfAI4gsZkfP5EybVR8LRYb j0r8Di38N33iF4StpGD+PG TneDT5yBH0 cE0wVjHsUgE7OIsgX726If NozQGpKhfnv1tti9hgwWp9 DgR9LADkzkHwkKsoYNV2c6 SrUk28J10a IHdpZHRoPSIxNSUiIHZhbG ltyr8nbN6yCj5+PGNvbCB3 nBI9yA5cLhNwMsO2PNhnR9 49InRvcCIv Zkhvw4xej6zxdKy4FkHpRO PpnhGixFgvHDM8m9TuZt41 J2KotIsoq2ZwQew1hv15fZ Krh9Z9aTK5 T7DyRAAutczlwEMvyTghUM 6iHNUjtwvnNYYatA5uBHGk T3d6ElIlFmT5GOvxH9Jazg D5WIFowSFk CFgvFOH2A76xi0A9BIImMD OfCHY1sVE3hF0yeLhlziuo bGVmdDsgdmVydGljYWwtYW wcX074NDYy uQapDNSstR5mEXDnnRZirG uzXA5cYQNmcwrsUxLVM6VG YzgaF1WIPGBWIRDNKT45VF 00vYIzo3G0 uTX7R8GyIQPitjaqhromhY K6BRDmNSOdsB28sTSsDDcz Zq9zn0Q5x465UWNjZACdeN 68Um1jyYmy TLTqvJZUoK7bfoohc6zjel llZrYfIDIoANv7SMy7AWUy aOhpXiMaKBS2ItH0RST6hQ SdcZ1oyJip plworR1oZqf+MDQvMTAvMT x4OZrqpTY+PWBzDCO6kFuk KDucMNOnaF5vXAVsY1y7Ik EtLuA4ZPsr S4EiWDLzucpcJr44yV0fFu CoHoP2RYtzM1WadlM9DUGx jMPuHGokMBG1S83uq5X5BD MwMDAwMDA7 tTA3bQ6adTtwwqmcvMOjxI tvzdLxxUhcJJwxZVvvE298 DTIntYzwCsR4DMlpPZErWG 08FF49cKXv k0U1oGJ2Y2DtZMRgabrgah srqHB4IKIyOMFegU19sYXt OGykQn6ta1M3g320QXMrFT IcrA43Nh8n iNzuKKKndPWRaH9qkaegs0 aovdwyAbWoORYsGJf3DQd4 LYOjyFgpUiHeFCP5FoT4XC P5wIYoiR8v eRxggogyjU8bOvo+RkVNQU oCKT63EL38lJNhs8K9bNE7 X5MuWMQgvxsxopuuaGH8KO VgIAOuvN15 jCXwOBpdLj5ue2E8b767RJ BfWTTagR14Xv7suRtzQJEd uZDLpJ3ieytdv4wzzvzeUs AwMDAwMDt0 BQt0PDOltPefKkZrKHF3Hi R9DAV9fXMptO1zaKfdmahp lP6dOjc+O8A8O5IkDykaiM I+ES19WXKa RA67wCMvzMIqf5yitTx0Ry AjNCJcJSY8bIamVNeyz9Bx NKBrI94tmNQtf5G3YCTbvZ xhcHNlOyBl vML3lF2nEPnayuqpa2twyh vdWbslm5vcxk77kA52T21p IHdpZHRoPSIzMCUiIHZhbG ovgg9bsG8p Ii8+WYWzhYL6pUT6uW9dHu ZfHyN5MXjgJ538BdPdjXRw Tvnxd4lga1nnxAg3AxOcZU IgdmFsaWdu ZFL3t7RkCt55A24wXYcnII UiHIGkUTFxBEHxySkopl6a rH9kEw9+LI5hd3jpyp34mV 48dHI+PHRk LYR4zXccEPtoXIJcnV1tAU enYbC2YZZqXhOqnB54qPLq XDnyMa1mqOfxaNkbHO4wZO Pseyxxv615 IpUyl1tyRNEpuIBxKUgxAR M8E44ru1C4FIIpEJAfKRQ4 aAC2zY6zaXchhdkxdZBgeF sgdmVydGlj ZMhtDDxdH761XRHiqDlzGp BuwRZfK6mzajBVVF8lSyui dGQ+OOGySNG9uMaxFZgyRC NzoO0vLFIh H4k2HeVhTvM2KEnfZ9Kqnt J6PBXblCZqLAPfhEXCiS1b gpxlm7qwzetgQdLlSEBcTU t9IKt2CUQr zLamKjSdIMH7LwJ2PFQ7gN HaxR5tbWfhxwmqiR7tSjg+ RklOOjwvdGQ+BAGaFKN9xU xlPSdwYWRk iB5wJKPdA1t1HoApBeA6PH laR3XmurW5EJTndLKrAOBy aXCSsO5omnqvm1umbbbtDb AwMDAwMDt0 OXx4ITCwaAmdHtBhNDV6Hq R8VPI8eENwdF3dnNqvtsqu tO7dLqi+TVJOOjwvdGQ+PH XwHXU8nXju LMwpOJKksY4sDUClX2f5Ck RjAjM0XZdpG6HlszH7IORc xTNhWMYuwWYPbT2fzazpl2 xvcjogIzAw WJYaYBg3PIg7FKDuuKxnVz UtMTT6HvA2HHO2fMTlqQ3m hPiqxzdqwT9jLak+UGF5ZX R3RG97BF69 J5TkGfloaYRcjAD+PHRhYm xlIHdpZHRoPScxMDAlJyBz lHzqTI9sDn3rNFRcSGFcxK xhcHNlOiBj b2x (more content not included)... Normal [facility] ED Clinical Summaryon 2020 ED Clinical Summary [facility] ? Urgent Care [address] [place], [place] [id number] Clinical Summary PERSON INFORMATION Name: GABBY COREAS Age: 35 Years Sex: FEMALE : 1985 MRN: Acct#: Visit Reason: Eye problem; UC - Eye Pain; LT EYE IRRITATION Arrival: 05/14/2021 14:57:24 Discharge: 05/14/2021 16:10:00 LOS: 000 01:13 Check In: 05/14/2021 14:57:24 Checkout: 05/14/2021 16:10:00 Address: [address] [place] [address] [address] [facility] [address] PCP: Nancy Sterling PROVIDER INFORMATION Provider Role [...] Follow-Up: With: Address: When: ROSHAN SOTOMAYOR [address] [place] [address] Business (1) Within 1 to 2 days Comments: Call Dr. Sotomayor's office to make a follow-up appointment in the next 1 to 2 days. With: Address: When: Nancy Sterling [address] [facility], [address] [place] [address] Business (1) Within 2 to 4 days Comments: Discharge diagnosis of bacterial conjunctivitis, infection of the lacrimal duct. There is no foreign body seen. Weldon lamp negative for corneal abrasions Begin Antibiotic eyedrops of tobramycin to left eye as directed Begin Keflex 500 mg every 8 hours neck 7 days. Off work for today. Apply warm compresses. Without fail follow-up with hook and eye attacher. DIAGNOSIS: Acute bacterial conjunctivitis of left eye; Decreased visual acuity; Discharge of eye, left; Infection of left lacrimal duct; Left eye pain; Pain and swelling of lower eyelid of left eye Patient Understands: Yes - Patient/family/caregiv er verbalizes understanding of instructions given Comment: Normal [facility] ED Patient Summaryon 021 ED Patient Summary [facility] ? Urgent Care [address] [place] [address] PATIENT DISCHARGE INSTRUCTIONS Patient Information Name: GABBY COREAS Age: 35 Years Date of : 1985 [facility]: [id number] Reason For Visit: Eye problem; UC - Eye Pain; LT EYE IRRITATION Arrival Time: 05/14/2021 14:57:24 Primary Care Physician: Nancy Sterling Attending Physician: Jose Mistry Comment: Patient Education With: Address: When: ROSHAN SOTOMAYOR [address] [place] [address] Business (1) Within 1 to 2 days Comments: Call Dr. Sotomayor's office to make a follow-up appointment in the next 1 to 2 days. With: Address: When: Nancy Sterling [address] [facility], [facility] [address] [place], [place] [id number] Business (1) Within 2 to 4 days Comments: Discharge diagnosis of bacterial conjunctivitis, infection of the lacrimal duct. There is no foreign body seen. Weldon lamp negative for corneal abrasions Begin Antibiotic eyedrops of tobramycin to left eye as directed Begin Keflex 500 mg every 8 hours neck 7 days. Off work for today. Apply warm compresses. Without fail follow-up with hook and eye attacher. Bacterial Conjunctivitis, Adult Bacterial conjunctivitis is an [...] to feel better. ? Take or apply pxzf-mme-rlsmvlr and prescription medicines only as told by [...] you grover (more content not included)... Normal [facility] Eye Cultureon 05-14-2021 Eye Culture Light growth of Staphylococcus epidermidis Normal skin deborah isolated No pathogens isolated Rare epithelial cells 1+ White Blood Cells No organisms seen. Normal [facility] Comment on above: Performed By: #### 2 [id number] #### [facility] (DEFAULT) [address] [place] [address] Urgent Care Note- Provideron 05-14-2021 Urgent Care [...] glaucoma. She does not have an active hook and eye attacher. ALL: NKDA Social: Nonsmoker. No Etoh. Lives in [place] Review of Systems Constitutional symptoms: No fever, [...] irritation a (more content not included)... Normal [facility] [place] 021 Urgent Care Record [facility] ? Urgent Care [address] [place] [address] PATIENT DISCHARGE INSTRUCTIONS Patient Information Name: GABBY [...] Discharge of eye, left (H57.89) Eye problem ([id number]) Infection of left lacrimal duct (H04.302) Left eye pain (H57.12) Pain and swelling of lower eyelid of left eye (H02.89) UC - Eye Pain ([id number]) If you received any narcotics, sedation, or [...] documents With: Address: When: ROSHAN SOTOMAYOR [address] [place] [address] Business (1) Within 1 to 2 days Comments: Call Dr. Sotomayor's office to make a follow-up appointment in the next 1 to 2 days. With: Address: When: Nancy Sterling [address] [place] [address], [address] [place] [address] Business (1) Within 2 to 4 days Comments: Discharge diagnosis of bacterial conjunctivitis, infection of the lacrimal duct. There is no foreign body seen. Weldon lamp negative for corneal abrasions Begin Antibiotic eyedrops of tobramycin to left eye as directed Begin Keflex 500 mg every 8 hours neck 7 days. Off work for today. Apply warm compresses. Without fail follow-up with hook and eye attacher. Medication Information: The exam and treatment you received today in the [facility] were for an urgent problem and are not intended as complete care. It is important for you to follow up with a doctor, nurse practitioner, or physician?s fitness assistant for ongoing care. If your symptoms [...] so we can reach you if necessary. [facility] has provided you with a complete list of medications post discharge. Please inform your primary class teacher/provider of your visit and for further instruction on these medications. Any specific questions regarding your chronic medications and dosages should be discussed with your primary care physician(s) and/or pharmacist. New Medications [facility], [address] [place] [address] [phone], [phone] cephalexin (Keflex 500 mg oral capsule) 1 [...] Items han (more content not included)... Normal [facility] Basic Metabolic Panelon 02-2 6-2021 Calcium [Mass/Vol] 8.9 mg/dL Normal 8.2-10.2 [facility] Comment on above: Performed By: #### C BC, BMP #### [facility] [address] Chloride [Moles/Vol] 104 mmol/L Normal 95-114 [facility] Comment on above: Performed By: #### C BC, BMP #### [facility] [address] CO2 [Moles/Vol] 19.7 mmol/L Low 22.0-30.0 [facility] Comment on above: Performed By: #### C BC, BMP #### [facility] [address] Creatinine [Mass/Vol] 0.70 mg/dL Normal 0.44-1.03 [facility] Comment on above: Performed By: #### C BC, BMP #### [place] [address] [place] Creatinine Clr Calc Pharmacy 125.80 [facility] Comment on above: Result Comment: PERF ORMED BY: [place] [address] PATHOLOGIST PRIVATE CLIENT ADVISOR MELVIN MAI M.D. Performed By: #### C BC, BMP #### [address] Estimated GFR ( Sharon > 60 [facility] Comment on above: Result Comment: GFR estimated reference range: According to KDOQI guidelines, <60 ml/min/1.73m2 is sufficient to diagnose a patient with chronic kidney disease. Performed By: #### C BC, BMP #### [facility] [address] Estimated GFR (Non- Am > 60 [facility] Comment on above: Performed By: #### C BC, BMP #### [facility] [address] Glucose [Mass/Vol] 97 mg/dL Normal 70-100 [facility] Comment on above: Result Comment: [place] om Glucose Reference Range is dependent on time and content of last meal. Glucose of more than 200 mg/dL in a nonstressed, ambulatory subject supports the diagnosis of Diabetes Mellitus. ADA recommended reference range Performed By: #### C BC, BMP #### [address] Potassium [Moles/Vol] 4.0 mmol/L Normal 3.5-5.1 [facility] Comment on above: Performed By: #### C BC, BMP #### [address] Sodium [Moles/Vol] 134 mmol/L Low 136-146 [facility] Comment on above: Performed By: #### C BC, BMP #### [address] Urea nitrogen [Mass/Vol] 10 mg/dL Normal 9-23 [facility] Comment on above: Performed By: #### C BC, BMP #### [address] Complete Blood Count Auto Di ffon 10-19-2020 Basophils (Bld) [#/Vol] 0.1 10*3/uL Normal 0.0-0.2 [facility] Comment on above: Result Comment: PERF ORMED BY: [place] [address] PATHOLOGIST PRIVATE CLIENT ADVISOR MELVIN MAI M.D. Performed By: #### C BC, BMP #### [place] [address] [place] Basophils/100 WBC (Bld) 0.8 % Normal . [facility] Comment on above: Performed By: #### C BC, BMP #### [place] [address] [place] Eosinophils (Bld) [#/Vol] 0.1 10*3/uL Normal 0.0-0.45 [facility] Comment on above: Performed By: #### C BC, BMP #### [place] [address] [place] Eosinophils/100 WBC (Bld) 1.3 % Normal . [facility] Comment on above: Performed By: #### C BC, BMP #### [facility] [address] Erythrocyte distribution width (RBC) [Ratio] 14.5 % Normal 11.9-15.3 [facility] Comment on above: Performed By: #### C BC, BMP #### [address] Hematocrit (Bld) [Volume fraction] 34.1 % Normal 34.0-46.4 [facility] Comment on above: Performed By: #### C BC, BMP #### [address] Hemoglobin (Bld) [Mass/Vol] 11.9 g/dL Normal 11.8-15.4 [facility] Comment on above: Performed By: #### C BC, BMP #### [address] Lymphocytes (Bld) [#/Vol] 2.5 10*3/uL Normal 1.00-4.8 [facility] Comment on above: Performed By: #### C BC, BMP #### [address] Lymphocytes/100 WBC (Bld) 34.7 % Normal . [facility] Comment on above: Performed By: #### C BC, BMP #### [address] MCH (RBC) [Entitic mass] 29.3 pg Normal 24.7-34.3 [facility] Comment on above: Performed By: #### C BC, BMP #### [address] MCV (RBC) [Entitic vol] 83.8 fL Normal 80-100 [facility] Comment on above: Performed By: #### C BC, BMP #### [address] Mean Corpuscular HGB Conc 34.9 g/dL Normal 32.0-35.0 [facility] Comment on above: Performed By: #### C BC, BMP #### [facility] [address] [place] [address] [place] Monocytes (Bld) [#/Vol] 0.4 10*3/uL Normal 0.0-0.8 [facility] Comment on above: Performed By: #### C BC, BMP #### [facility] [address] [place] [id number] [place] Monocytes/100 WBC (Bld) 4.9 % Normal . [facility] Comment on above: Performed By: #### C BC, BMP #### [facility] [address] [place] [address] [place] Neutrophils (Bld) [#/Vol] 4.2 10*3/uL Normal 1.8-7.7 [facility] Comment on above: Performed By: #### C BC, BMP #### [facility] [address] [place] [address] [place] Neutrophils/100 WBC (Bld) 58.3 % Normal . [facility] Comment on above: Performed By: #### C BC, BMP #### [facility] [address] [place] [address] [place] Nucleated RBC/100 WBC (Bld) [Ratio] 0.1 % Normal 0-0.5 [facility] Comment on above: Performed By: #### C BC, BMP #### [facility] [address] [place] [address] [place] Platelet mean volume (Bld) [Entitic vol] 8.6 fL Normal 6.3-10.7 [facility] Comment on above: Performed By: #### C BC, BMP #### [facility] [address] [place] [id number] [place] Platelets (Bld) [#/Vol] 298 10*3/uL Normal 150-450 [facility] Comment on above: Performed By: #### C BC, BMP #### [facility] [address] [place] [id number] [place] RBC (Bld) [#/Vol] 4.06 10*6/uL Normal 3.60-5.00 [facility] Comment on above: Performed By: #### C BC, BMP #### [facility] [address] [place] [address] [place] WBC (Bld) [#/Vol] 7.2 10*3/uL Normal 4.5-11.0 [facility] Comment on above: Performed By: #### C BC, BMP #### [facility] [address] [place] [address] [place] Dipstick and Microscopicon 0 10-19-2020 Appearance (U) Clear Normal Clear [facility] Comment on above: Order Comment: Name Collection Type:: Clean-Voided Midstream Performed By: #### U HCG, ADDONUAPLUS #### [address] Bacteria,Urine None Seen Normal None Seen [facility] Comment on above: Order Comment: Name Collection Type:: Clean-Voided Midstream Performed By: #### U HCG, ADDONUAPLUS #### [address] Bilirubin,Urine Negative Normal Negative [facility] Comment on above: Order Comment: Name Collection Type:: Clean-Voided Midstream Performed By: #### U HCG, ADDONUAPLUS #### [address] Color (U) Yellow Normal Yellow [facility] Comment on above: Order Comment: Name Collection Type:: Clean-Voided Midstream Performed By: #### U HCG, ADDONUAPLUS #### [place] [address] [place] Glucose Ql (U) Normal Normal Normal [facility] Comment on above: Order Comment: Name Collection Type:: Clean-Voided Midstream Performed By: #### U HCG, ADDONUAPLUS #### [place] [address] [place] Hyaline Casts,Urine 0-8 Normal 0-8 [facility] Comment on above: Order Comment: Name Collection Type:: Clean-Voided Midstream Performed By: #### U HCG, ADDONUAPLUS #### [facility] [address] [place] [address] Ketones Ql (U) Negative Normal Negative [facility] Comment on above: Order Comment: Name Collection Type:: Clean-Voided Midstream Performed By: #### U HCG, ADDONUAPLUS #### [address] Leukocyte esterase Test strip Ql (U) 1+ High Negative [facility] Comment on above: Order Comment: Name Collection Type:: Clean-Voided Midstream Performed By: #### U HCG, ADDONUAPLUS #### [address] Nitrite,Urine Negative Normal Negative [facility] Comment on above: Order Comment: Name Collection Type:: Clean-Voided Midstream Performed By: #### U HCG, ADDONUAPLUS #### [address] Occult Blood,Urine Negative Normal Negative [facility] Comment on above: Order Comment: Name Collection Type:: Clean-Voided Midstream Performed By: #### U HCG, ADDONUAPLUS #### [address] pH (U) 5.5 [pH] Normal 5.0-9.0 [facility] Comment on above: Order Comment: Name Collection Type:: Clean-Voided Midstream Performed By: #### U HCG, ADDONUAPLUS #### [facility] [address] [place] [address] Protein,Urine Negative Normal Negative [facility] Comment on above: Order Comment: Name Collection Type:: Clean-Voided Midstream Performed By: #### U HCG, ADDONUAPLUS #### [place] [address] [place] RBC LM.HPF (Urine sed) [#/Area] 0 /[HPF] Normal 0-4 [facility] Comment on above: Order Comment: Name Collection Type:: Clean-Voided Midstream Performed By: #### U HCG, ADDONUAPLUS #### [address] [place] [address] [place] Specificy [place],Urine 1.011 Normal 1.001-1.030 [facility] Comment on above: Order Comment: Name Collection Type:: Clean-Voided Midstream Performed By: #### U HCG, ADDONUAPLUS #### [address] Squamous Epithelial Cell,Urine 5-9 High 0-2 [facility] Comment on above: Order Comment: Name Collection Type:: Clean-Voided Midstream Performed By: #### U HCG, ADDONUAPLUS #### [address] Urobilinogen,Urine Normal Normal Normal [facility] Comment on above: Order Comment: Name Collection Type:: Clean-Voided Midstream Performed By: #### U HCG, ADDONUAPLUS #### [address] WBC,Urine 3-4 Normal 0-4 [facility] Comment on above: Order Comment: Name Collection Type:: Clean-Voided Midstream Performed By: #### U HCG, ADDONUAPLUS #### [address] HCG,Urineon 10-19-2020 Beta HCG ( test) Ql (U) Negative Normal [facility] Comment on above: Order Comment: Name Collection Type:: Clean-Voided Midstream Result Comment: PERF ORMED BY: [place] [id number] PATHOLOGIST PRIVATE CLIENT ADVISOR MELVIN MAI M.D. Performed By: #### U HCG, ADDONUAPLUS #### [address] PROGRESSon 02-22-2017 PROGRESS HNO ID: [id number]: Blanca Aguero: (none)Author Type: PhysicianType: Progress NotesFiled: 02/22/2017 11:31 AMNote Text:DATE OF SERVICE: 02/18/2017PROBLEM: Gabby Coreas presents for postop visit.SURGERY AND DATE: 02/05/2017Laparoscopic right salpingo-e0cmnicextet and left ovarian cystectomyPATHOLOGY: NAL DIAGNOSIS1. Right [...] lb 3.2 oz) LMP 01/19/2017 BMI 40.81 kg/v6MKZIX: Normocephalic, atraumatic, mucus membranes moist and no [...] I advised her to continue her routine clinical manager exam and cervical screening4. I advised her to call my office with any issue or concern especially ifrelated to the surgeryBlanca Morton MD, MPHCC:Storm Tuhrman, LISSETT Clark (PCP) Normal [facility] CNOVon 02-18-2017 CNOV Office Visit (GYNOSA) GABBY COREAS ([id number]) 1985 FDate Time Provider Department02/18/17 3:20 PM [...] for postop visit.SURGERY ANDamp; DATE: 02/05/2017Laparoscopic right salpingo-b2phfwjigfpu and left ovarian cystectomyPATHOLOGY:[facility] DIAGNOSIS1. Right ovary and fallopian tube, right [...] (223 lb 3.2 oz) LMP 01/19/2017 BMI40.81 kg/h5NMFHF: Normocephalic, atraumatic, mucus membranes moist and no [...] I advised her to continue her routine clinical manager exam and cervical screening4. I advised her to call my office with any issue or concern especially ifrelated to the surgeryBlanca Morton MD, MPHCC:Storm Thurman, LISSETT Clark (PCP)Referring Provider: BLANCA MORTON [[id number]]Allergies As of Date: 02/18/2017(No Known Allergies)Date Reviewed: [...] some discomfort.Follow-up and Disposition History RecordedEncounter Number: [id number] Status:Closed by BLANCA MORTON MD on 02/22/17 Normal [facility] Vital Signs Date Time Vital Sign Value Performing Clinician Facility 08-28-2022 17:45-0500 Body height 157.48 cm Paige Biggs Other [employer] Other 08-28-2022 17:45-0500 Body mass index (BMI) [Ratio] 41.7 kg/m2 Paige Biggs Other [employer] Other 08-28-2022 17:45-0500 Body temperature 98.1 [degF] Paige Biggs Other [employer] Other 08-28-2022 17:45-0500 Body weight 103.42 kg Paige Biggs Other [employer] Other 08-28-2022 17:45-0500 Diastolic blood pressure 75 mm[Hg] Paige Biggs Other [employer] Other 08-28-2022 17:45-0500 Respiratory rate 18 /min Paige Biggs Other [employer] Other 08-28-2022 17:45-0500 SaO2% (BldA) [Mass fraction] 99 % Paige Biggs Other [employer] Other 08-28-2022 17:45-0500 Systolic blood pressure 129 mm[Hg] Paige Biggs Other [employer] Other 08-11-2022 11:15-0500 Body height 157.48 cm Ignacia Acosta Other [employer] Other 08-11-2022 11:15-0500 Body mass index (BMI) [Ratio] 41.7 kg/m2 Ignacia Acosta Other [employer] Other 08-11-2022 11:15-0500 Body temperature 98 [degF] Ignacia Acosta Other [employer] Other 08-11-2022 11:15-0500 Body weight 103.42 kg Ignacia Acosta Other [employer] Other 08-11-2022 11:15-0500 Respiratory rate 18 /min Ignacia Acosta Other [employer] Other 08-11-2022 11:15-0500 SaO2% (BldA) [Mass fraction] 98 % Ignacia Acosta Other [employer] Other Encounters Encounter Date Encounter Type Care Provider Facility Start: 10-28-2022 End: 10-29-2022 ambulatory IGNACIA RAY Facility: Start: 08-28-2022 End: 08-28-2022 ambulatory Paige Biggs Other [employer] [facility] Start: 08-28-2022 Office outpatient visit 15 minutes Paige Biggs [facility] Start: 08-11-2022 End: 08-11-2022 ambulatory Ignacia Acosta Other [employer] [facility] Start: 08-11-2022 Office outpatient ne w 20 minutes Ignacia aKrla [facility] Start: 02-18-2017 End: 02-18-2017 Ambulatory [facility] Start: 02-05-2017 End: 02-06-2017 Ambulatory [facility] Payers Date Payer Category Payer Unknown [id number] 1960 Private Health Insurance [id number] Social History Date Type Detail Facility Sex Assigned At [employer] Other Evaluation note 08-28-2022 Note Date & [...] weeks for the cough to go away [employer] Other Evaluation note 08-11-2022 Note Date & [...] days. Jul, Acute cough (ICD-10 - R05.1) [employer] Other Clinical Note 05-14-2021 Note Date & [...] to feel better. ? Take or apply [id number] and prescription medicines only as told by [...] provider. Document Revised: 11/29/2019 Document Reviewed: 03/16/2019 [employer] Patient Education ? 2020 [employer] [facility] Summary Purpose Family History No Family History Records FoundNo Family History Records FoundNo Family History Records FoundNo Family History Records FoundNo Family History Records Found Advance Directives No Advanced Directives Records FoundNo Advanced Directives Records FoundNo Advanced Directives Records FoundNo Advanced Directives Records FoundNo Advanced Directives Records Found Additional Source Comments INFORMATION SOURCE (unrecogn ized section and content) DATE CREATED AUTHOR 02/17/2018 [facility] DATE CREATED AUTHOR AUTHOR'S ORGANIZ ATION 02/17/2018 [facility] DATE CREATED AUTHOR AUTHOR'S ORGANIZ ATION 05/25/2021 [facility] DATE CREATED AUTHOR AUTHOR'S ORGANIZ ATION 09/08/2021 [facility] DATE CREATED AUTHOR AUTHOR'S ORGANIZ ATION [...] BE BASED ON THE PRIMARY CLINICAL RECORDS. [facility] [employer] [facility]. provides no warranty or guarantee of the accuracy or completeness of information in this document.
[2024-04-26 08:31] VITALS: PULSE 85; O2SAT 98; BMI 45.7
== END 2024-04-26 13:06 | disposition home or self-care (01) ==
LOC: VC 08:19
PROVIDERS: PCP Nurse Practitioner Family; Visit Provider Radiology Diagnostic Radiology
DX: I83.813 Varicose veins of bilateral lower extremities with pain (principal); I89.8 Other specified noninfective disorders of lymphatic vessels and lymph nodes; M19.071 Primary osteoarthritis, right ankle and foot; G57.91 Unspecified mononeuropathy of right lower limb; M25.571 Pain in right ankle and joints of right foot
CPT/HCPCS: 93970; G0463

== ENCOUNTER 2024-05-23 09:55 | Outpatient (OUT) | payer OTHER, SELFPAY ==
--- NOTE | 2024-05-23 08:34 | V.VEINS.HP ---
Vital Signs 05/23/24 10:08 05/23/24 10:37 Height 5 ft 2 in Weight 113 kg BP 130/78 BP Location Left Brachial BP Position Sitting BP Cuff Size Adult BP Source Manual Cuff Respiration 16 Pulse 95 H Pulse Source Monitor Pulse Oximetry (%) 96 Oxygen Delivery Method Room Air Comment The patient's blood pressure is elevated. Varicose Veins Patient in this day for EVLT of left GSV Jm Fishman MD personally performed the services described in this documentation, as scribed by Jason Costa RN in my presence and it is both accurate and complete. Jason Fishman RN, am scribing for, and in the presence of, Dr. Jm Loomis and in the presence of the patient. . knee: bilateral (symptoms most noted to right foot), calf: bilateral, ankle: bilateral and vance: bilateral aching, burning, cramping, dull and tender 9 months Worsened in recent months: Yes standing and sitting elevating extremities and other (massaging areas) Reports muscle spasms of leg, heaviness, limb pain, edema and leg edema History of lower extremity trauma: No Superficial thrombophlebitis: No Family history of varicose veins: no Has patient had previous lower extremity venous surgery: No Patient has previously received the following treatment(s) for lower extremity varicose veins: Reports none Does patient have a history of : yes Does patient intend to have future pregnancies: no Has patient had lower extremity venous scan with relux testing: No Support hose used: Yes Problems walking or doing physical activity: Yes How does it affect you: dificulty due to pain Do you walk much: Yes Do you stand much: Yes Review of Systems ROS Narrative Jm Fishman MD personally performed the services described in this documentation, as scribed by Jason Costa RN in my presence and it is both accurate and complete. Jason Fishman RN, am scribing for, and in the presence of, Dr. Jm Loomis and in the presence of the patient. Status of ROS 10 or more systems reviewed and unremarkable except as noted in history and below Cardiovascular Reports: edema Integumentary/Breast Reports: skin tenderness and skin swelling Neurological Reports: weakness in extremities [facility] Medical History (Updated 04/26/24 @ 08:43 by Jason Costa) Varicose veins of bilateral lower extremities with pain ?I83.813 - Varicose veins of bilateral lower extremities with pain (ICD-10) Bilateral leg edema ?R60.0 - Localized edema (ICD-10) Osteoarthritis ?M19.90 - Unspecified osteoarthritis, unspecified site (ICD-10) Calcified lymph nodes ?I89.8 - Other specified noninfective disorders of lymphatic vessels and lymph nodes (ICD-10) Calcified granuloma of lung ?J84.10 - Pulmonary fibrosis, unspecified (ICD-10) Obesities, morbid ?E66.01 - Morbid (severe) obesity due to excess calories (ICD-10) Surgical History (Updated 05/23/24 @ 11:12 by Jason Costa) Status post laser ablation of incompetent vein ?Z98.890 - Other specified postprocedural states (ICD-10) H/O oophorectomy H/O dilation and curettage ?Z98.890 - Other specified postprocedural states (ICD-10) H/O laparoscopy ?Z98.890 - Other specified postprocedural states (ICD-10) Family History (Updated 04/20/24 @ 13:36 by Jason Costa) Father Family history of diabetes mellitus Other Lupus Social History (Updated 04/26/24 @ 08:42 by Jason Costa) Within the past year, how often did you have a drink containing alcohol: 2-4 times a month Smoking status: Never smoker Non-prescribed substance use: denies use Meds Home Medications and Allergies Home Medications ?Medication ?Instructions ?Recorded ?Confirmed ?Type cholecalciferol (vitamin D3) 50 04/26/24 History mcg (2,000 unit) capsule diclofenac sodium 75 mg mg PO 04/26/24 History tablet,delayed release Allergies Allergy/AdvReac Type Severity Reaction Status Date / Time No Known Drug Allergies Allergy Verified 04/26/24 13:01 Exam Narrative Exam Narrative: IJm MD personally performed the services described in this documentation, as scribed by Jason Costa RN in my presence and it is both accurate and complete. IJason RN, am scribing for, and in the presence of, Dr. Jm Loomis and in the presence of the patient. Constitutional Documenting provider has reviewed patient's vital signs: yes Common normals: oriented x3 Nutritional appearance: overweight Lymph Lymphatic: no lymphedema noted Cardio Peripheral pulses: posterior tibial pulses present and dorsalis pedis pulses present Extremity Common normals: normal capillary refill General: calf tenderness and edema Right lower extremity: lower leg Right lower leg: inspection and palpation Left lower extremity: lower leg Left lower leg: inspection and palpation Neuro Common normals: oriented x3 Assessment and Plan Assessment and Plan (1) Varicose veins of bilateral lower extremities with pain: Plan f/u evaluation with physician along with left leg limited u/s IJm MD personally performed the services described in this documentation, as scribed by Jason Costa RN in my presence and it is both accurate and complete. IJason RN, am scribing for, and in the presence of, Dr. Jm Loomis and in the presence of the patient. Procedures Procedure Instructions Procedures Plan of care: Risks and benefits of the procedure were discussed at length and informed written consent was obtained.? Time-out completed for verification of correct patient, procedure and site.? Staff present during time-out: Jason Costa RN,? Jm Loomis MD, Leanna Cordova [facility]. Time Out Time__1005 Patient prepped and procedure performed in usual sterile fashion. Risk of injury related to use of Diode laser and/or laser devices __CR___ ? Serial number of laser used :? [id number] Control panel self test performed, electrical cords in good condition, floor is dry, basin of water available, fire extinguisher in close proximity_CR__ Polycarbonate goggles available and Laser warning signs outside of doors___CR__ Eye protection provided to patient and staff in room_CR___ Use of laser retardant drapes and dull blackened instruments as directed__CR___ Use of nonflammable prep solutions and use of saline soaked sponges to protect tissues as indicated _CR___ Length ___57 cm Laser operated by _Dr. Loomis Physician verbal confirmation laser locked in place__CR__ Laser start time (date and time) __05/23/2024@_1048 Laser stop time(date and time) _05/23/2024@__1101 Lilly _8.0___ Average laser use __3235 Joules Average laser use___404 seconds Pulse continuous ___CR_? Pulse intermittent ___ Amount of Tumescent used __350cc____ Evaluated patient for signs and symptoms of electrical injury __CR___ ? Skin clear at insertion site __CR___ Patient tolerated procedure well.? Left leg Coban dressing applied to access site.? Applied Left thigh high leg compression stocking. Will return on 05/30/2024 for Left leg limited venous ultrasound and exam. IJm MD personally performed the services described in this documentation, as scribed by Jason Costa RN in my presence and it is both accurate and complete. I, Jason Costa RN, am scribing for, and in the presence of, Dr. Jm Loomis and in the presence of the patient.
--- NOTE | 2024-05-23 08:42 | W.VEIN ---
Discharge Plan Discharge Disposition: Home, Self-Care Outpatient Diagnostics: VC EXT Venous LT Limited (Routine) Timeframe: 2 Weeks Facility: [facility] - Location: [facility] Ordered By: Jm Loomis Follow Up Appointments: 05/30/2024 Plan of Treatment: f/u evaluation with physician along with left leg limited u/s Patient Instructions: Endovenous Ablation (DC) Print Language: Syriac Discharge Date/Time: 05/23/24 10:39
--- NOTE | 2024-05-23 09:58 | VEIN_ITS ---
The [address] [address] Patient Name: LEVI SY MRN: [id number] date: 1985 Sex: F Assigned Patient Location: Current Patient Location: Accession/Order Number: [id number] Exam Date: 05/23/2024 10:03 Report Date: 05/23/2024 11:18 At the request of: KIMBERLEY BRYAN Procedure: VC Endovenous Ablation 1VeinLT EXAMINATION: VC Endovenous Ablation 1VeinLT HISTORY: I83.813 - Varicose veins of bilateral lower extremities w... The risks and benefits of the procedure had been previously discussed, and were rediscussed at length. Informed written consent was obtained. Jason Costa RN and Leanna Frank RDMS assisted. Time out procedure was performed. The left lower extremity was prepared and draped in the usual sterile fashion to allow knee flexion in the sterile field. Duplex ultrasound probe was draped in a sterile cover, sterile transmission gel was used. Venous mapping was performed with the areas of dilation and large tributaries marked. The total length was 57 cm from the entry 3 cm above the ankle to 3 cm below the Saphenofemoral junction. The diameter of the left great saphenous vein ranged from 7.0 mm. A 30 gauge needle and 1% buffered lidocaine was used to anesthetize the entry site. A 4 mm incision was made with a scalpel and the saphenous vein was entered percutaneously under direct ultrasound guidance with a micropuncture set, a single stick was successful in gaining access. A micro-guide wire was inserted and the needle removed. A micro-set including a dilator was inserted over the microwire and the needle and dilator were removed. A guide wire was inserted through the micro-set and guided through the saphenous vein to the saphenofemoral junction. The dilator was removed and an introducer sheath was inserted over the wire until the end of the sheath entered the saphenofemoral junction. The dilator and wire were removed and the 600 micron fiber was introduced and placed and positioned so that it extended beyond the sheath and was 3 cm distal to the saphenofemoral or saphenopopliteal junction. Final position of the fiber was determined by ultrasound guidance and duplex imaging. Tumescent anesthetic was delivered by ultrasound guidance. 350 cc of fluid was delivered along the entire course of the saphenous vein. The solution consisted of 1000 cc of normal saline with 40 mL of 1% lidocaine and 20 mL of sodium bicarbonate. A final positioning check was made. The energy source was turned on by means of the foot pedal and the fiber and sheath were withdrawn. The total number of Joules delivered was 3235. The laser was active for 404 seconds under continuous pulse, average laser use of 8 J. Laser start time: 10:48 AM Laser stop time: 11:01 AM Date: 05/23/2024. A duplex ultrasound revealed compressibility and flow at the saphenofemoral junction immediately after the procedure. Hemostasis at the access site was achieved. The skin incision of the saphenous vein was closed with a 4 x 4. A compression stocking was applied. Postop instructions were given. A follow up appointment was recommended and scheduled. The patient tolerated the procedure well. Electronically authenticated by: KIMBERLEY BRYAN Date: 05/23/2024 11:18
[2024-05-23] MEDS: 0.9 % SODIUM CHLORIDE 500 ML, LIDOCAINE HCL 20 ML, SODIUM BICARBONATE 10 MEQ INJ (10:00)
[2024-05-23] MEDS: LIDOCAINE HCL 1% 100 MG/10 ML MDV INJ (10:00)
--- OUTSIDE RECORDS SUMMARY | 2024-05-23 10:02 | XMS_ITS | CCD ---
Author Organization [facility] Inform ion Partnership [facility] Care Team Providers Care Clinical Dietetic Technician Name Role Phone BLANCA Unavailable Unavailable BLANCA MORTON Unavailable Unavailable Ignacia Acosta Unavailable Paige Biggs Unavailable IGNACIA RAY Admitting Unavailable IGNACIA RAY Attending Unavailable IGNACIA RAY Primary Care Unavailable IGNACIA RAY Consulting Unavailable RAAD HUGHES Consulting Unavailable TIM CRAWFORD Attending Unavailable Medications Current Medications Medication Drug Class(es) Dates Sig (Normalized) Sig (Original) [id number] 200 actuat albuterol 0.09 mg/actuat metered dose [...] RAAD HUGHES Date: 2022-10-28 17:27 Normal [facility] COVID/FLU RT-PCRon 2 SARS-CoV-2 (COVID-19) RNA TOBY+probe Ql (Unsp spec) Positive Hyper Wear Other COVID/FLU RT-PCR Negative Tracks.by [facility] [employer] Other Coding Summaryon 05-17-2021 Coding Summary HTMLBase 64 MzgcvjtjGXg9gEb+PGhlYW Q+LN7TLUJsD59xaOWmdT9I V3kITT7GGSYMPCESCU0JSJ 5krRU8SRulR2JesuCp UzrsgFFoBW92GNu8EWT2qW heBAqiqJ4mgLOpV0c4ZfRr QM59vG02NVwrPKCxEyG9Ov ZpbjsgbWFy S9fpYfQohDUmDog+PHRhYm xlIHdpZHRoPScxMDAlJyBz gWauAZ2jKu6vDALpAEUufZ xhcHNlOiBj m2usAHEsHUvbNH5ziZrgB5 IqyFC4BWAzt4l4Sq43tAZ+ GALjVZD1pNysTFgjk631To Pqa0jmEKV6 gQIrLMykAJX4S06bs5Y3SE BdSUVaDNN9yIG2tR6aqInv jwckE2SnoAWyLmG9ADA8jT CswJ4edNpq jwvofD6kYaj+I56UPL7YLK AIBR8NOsk7F3VtKgpgbYQ+ CB66GMAxUQ34uFUrqRDfg8 irwQk1BpFs MRRoSLV2dTfjKRxlg2OoCA AjZ05rrZMfi2N7WCBysIzq oMTtUrXvnZE2nG6wOZiakl kte5ultmnu Ynwmz5gixe84vO27A75yHQ vtJHEvLAU4LKGaUIPwhSfu ke2nhL8oTr0+CMgus1peb2 lhrWw2NkDe SKBctuAsjFvnINQ2a2NpMe 12F9MhwQbps4NuXho3fv50 tVLyb9D7uPW4NRtcTZLapI 0oJHveKpZ9 IJAiYaDjmF97oOPpZFpjDl 9heIfunOdnBO9yZUSfxgcw VWOzrT9hLLGqpEXshFqaQH 4wNTBpbjtm o713DdRjROX7ULZslQLeS3 OylY6hDdJlUPNiMJJgC1Vr qCMaZEqdR145VVywIdG8BU CwgnOsU6Bw GTPpiInxMrG6k3B4Jh2Km0 WxoyxoBFO5QEroEEG7NnG0 ShLdDjM8L1JgQuz7CHYibV ydDB4wZ0As GDFaxtdmryiqvHM6DUCeLT JdaZ11rEJtDKynWb8st8G2 e158LVZaMDQllX92Ne7rpH ogMTBwdCBU pZ9trodlw3noryweHyVxIC CfNQk4IPw8TQQolOnzCbBj FCQ7GwE4LGK5tUEjbI2xlX lkrsohtN8s Oyc+Z21pmF7dAFK0XYB6kt uhFVUilrRiXF30IU53W2Vo PjwvdGFibGU+PGRpdiBzdH saOZ2lRjDl d8zye1EjSEncL8ZqCWWbAX gnPlq2XMRyRIE5oQO6mJ4r MJMfCEhhb8P6nJI8H2Htur Keuw9uq8qt DOTeHHvqW66nkZOko4X8TW GgiOK3PUUsjGlbGgCdsM70 Oyc+TYPqnJcxz7WxJqlee4 tfd6ckqVe7 XkIuEYDgrdYpjLupLCX8z3 OuBq83J72cCIqzWMLkWIEf DKEoONTmfNqsvz3beK3uLq 8+PGNvbCB3 cOA8zD1vOVRvRnA4VQaiN8 55BqAddHAxNtgsy1sjk3pw cXt0XcFpEAHbwiIfgYttCL S8c4UzDy68 G19gDAbxOAYeEXJaZSOgGT HyjEsbcv8mnB4rDj7+PC9j i3vuat58lK22tYB+PHRkIH L4eFeuJKia MWYhnB5dPSheWoS9VGLlPo ChjH88bYZyYSysNo2agSxo xNwtRR4fZABysemaa734Md Ege1ajFATn cGDmYYemDZB3B52cp7S7DN CiSXYvYCJ4bYO8vR7asZoy bjogbGVmdDsgdmVydGljYW duEKhwP665 IHRvcDsnPlBhdGllbnQgTm UaZHq0T3MqQxo1CJSshSzt CD5blJGyZZzyBn4uuAmccT ybZM9dEXPs kmgsr583UeOxq0nyVSMhzB XuAKvsGYC7K23aa0J9YQVj CZXuGBF9xMM8eB1pvKjmkb ogbGVmdDsg pgTpzJslLDpgALybW289BL RvcDsnPkJpcnRoIERhdGU6 PI62DW79cCLzp0P0zJV0Q0 BhZGRpbmct wegjjWH3TEDyXUHviB21Sz 4itEhpOv5jIFCdVNN2SKVj bCTaQ0WadH0hRnObUMAgDA VoR6NlgQEy MFvuA092KThpLjL5FEMvve BpV6HlWZFgmCsoXxO3k0M0 Bw7NB2V1ID40UU55cHRyq4 N5aLZ2P2Uf SEPjeckuzrxdmJL2LVXgET BcfG59Hr6wrJieGc4mFOUj FMD0MGFueSFqF4NltM8aKt AjMDAwMDAw P9SxcKYmNOtrZ919UNtbPf C0AAJnwvDhI1FlDPXjeCgf ZaM5w0Z5Sf3KIPh0TL67TA 63pHFgs7L1 hWH1B0DwTFIdracttfibuV K9IDBuWCPxaD26Ec0iiXrm Et8ePTSeJAO5UAYlhROzD1 GsgV9xXoHm UERnVEHmA3SsoLUzVNbsB6 03AXoiXjF7CDLbihDjI6Xg CYTvgRsnGuT4g4C9Oz8AXJ MgEL43YFS2 iKU3RW40SB05Y7SiPxocgN FibGU+PHRhYmxlIHdpZHRo MDkjURUuLpWwtFjgMU9oSp 9yZGVyLWNv pObffDOkGiPjk8hqZOCyMK euOJ5bqJijD5UzqGC0XMOe w0x9Go43F14sU3VivEF+PG LrrCC5cBF8 iF9lKbIgWmK2VIcdN097Gq OhyFWlMqari4nyg7mwxEj8 DoX7SLDmaiHyfQtcSDY3s9 QyOr14Y11h IHdpZHRoPSIxNSUiIHZhbG lqtv6ozV3lHi4+PGNvbCB3 lHF2lV1wRmXjPfO6DQneY9 49InRvcCIv Ptkdd0ise6kbiTg3AgBoIT TjfaXuvPwsFVU2p5KfFy25 F6ZofMtfo5HeVya9jh68bR Sjl3J6uMR7 F1DwSLEizgnzfIOtgOjiMW 4mOVLwcrhmBPAmjL5xGQMg I1z7CqGoPqI4AWveS7Nnrt M1QZNvdYKs AAfyHHB2W62bi8B9OKSjOA IpFYR7gBJ3sK2mmWfzaitj bGVmdDsgdmVydGljYWwtYW etB654ZNYs dTutPEVzeR0hLVUgeTNtmB lvJG4qOPZsrzrsBwDLF8WZ OenfQ0UHKDGTSSUMKC86BW 96cSOaf3C2 jTT1R9PyASHcnepdhpyyjY T4XBEsJUNbcV58mRTdXFck Di1tj8D9l914POGxJJSlnS 86Aa2bjFrv PHOfjBIDpW2xgnkxz2bafh vyGgRzNOCtJQj5PUk5LDKb sIwyRlYdYHD5NnF1NNQ3jK RqfK5ulTgq zdzbnV1pZcf+MDQvMTAvMT t0YFevuDG+HNKlPHI8eAql TNxmGAUfiC6sFGLaQ8h1Pq JaIsF7LWqc M4HcHKIeigskZb09bX6fSj ZqLyP9ZApyV5ZzaoE2SWMi aTOkNRiqKNV6R50ji4P7IY MwMDAwMDA7 uNL5dN0yzRqssnzgeRGloZ ekbtRhzQvxABegTSmaV248 WGFrsPgtVpB5NZucLKNgOX 75UN61gOLz q1Y1oUH3H5TrUOOnkpgkcs mgfQJ6RVNeKCEnuO88pOHw PDrmWj6aj7L9g751WDKpHM QgmV73Xd7v yTbpKDUypZBWtG4xvdprb6 nrrfadHxEtGUYsCDs5XZt8 GXYfpIjsUnQsMLE0LaD1AQ W5uDIyyD8q mZvntgkcdB6pVfp+RkVNQU dBNL18SB76tUSrl9R2lBG9 P7DiTMJqrisvqrlxdOY9SI HnVIQzcU69 rIAoRSsrSn0aq5S3e085OG LoQWGorX24Cc4qsQlxDZEt xVRAuK1aqyavn7esrzahWw AwMDAwMDt0 OFb5EORshXufSqVnYJM9Hl R8FZE1vALdsJ2tuPkxuxiq hC8rCld+J1U7L6ZfKdhjwR I+AH38KDTo LC73sCTqlDOmc2fksTw7Gq DrJLXzLDX8zMaoQZzlt8Cs TUQoE09mwMUym3T3KZMqaD xhcHNlOyBl wHP4sM0sEXrzuyidl0spjn veCmhdf0locq16uM65P00i IHdpZHRoPSIzMCUiIHZhbG eych0ioZ4y Ii8+POHkdEL4fUA2oL4ePb KrVgT5EUdjL926HhRjzXSa Lmffa8pgj8skiDx6FeYgHF IgdmFsaWdu LBJ3u2SsCe65W87uJGzzGQ KjOIIbVNRlMWAqcGgrci9j iT1vPl5+QF4cl9wtrh98aW 48dHI+PHRk PWQ7jZcqYDixCIOzqW9iER ciBvD8WQHjUhWtzH47xICz ZCvvEy4rpGbfzWfvOW0hXU Powtgbo279 UdIcq8fyEIBzzDHwSQezMT G8N05gl4B8UDZgWCPwQGA9 jXN7jB1icFymzhkfiWGopZ sgdmVydGlj IGpjDMfjO427TIQvzXkaVk MgxLIxL1cdciIPTU5oMpyg dGQ+UTIxQTG5nDqlJPcmKX VsiB9pVXKr Z4e5MxGxUfM9ZWrxW3Kdrd L1GRVdzOTvWSUpmGBPyU0l wffhs1qbllvhHdBjXWNmMT v0DXg6BPOf jZkiJmQkAIO1PxJ3ZBU3dB ThgB3vbYyxjmvqrY2pIsu+ RklOOjwvdGQ+VSQwSRQ9nM xlPSdwYWRk rF3zDHSoY4u1GnBxMfI4TK tnR0UdvnQ3MIJvpVTcTKZw fTWWdV5gohryz6uhbddfNh AwMDAwMDt0 WGg1UPVlsTneGzQaILK9Rh U7AMZ3pMKcrM0hjDouyxzr fO2uXgg+TVJOOjwvdGQ+PH RfHSR9dYrd ZBytTMUtlN0xEQFcT4y0Bt NeUpX4UXiaO3HmjiU3RJNe aJXmZOQpjNJSgW8krtvnh6 xvcjogIzAw TLSaFWw9OFv9THOmiXvzUs YkJTZ2XjL8LLR3bSVbeE5g aEbfzhmyrV7oZrr+UGF5ZX Z4TZ23VY87 L7XvGjhdtGFfeXG+PHRhYm xlIHdpZHRoPScxMDAlJyBz rAmiQJ8cHx7mVLPiDWZrfH xhcHNlOiBj b2x (more content not included)... Normal [facility] ED Clinical Summaryon 2020 ED Clinical Summary [facility] ? Urgent Care [address] [place] [address] Clinical Summary PERSON INFORMATION Name: GABBY COREAS Age: 35 Years Sex: FEMALE : 1985 MRN: Acct#: Visit Reason: Eye problem; UC - Eye Pain; LT EYE IRRITATION Arrival: 05/14/2021 14:57:24 Discharge: 05/14/2021 16:10:00 LOS: 000 01:13 Check In: 05/14/2021 14:57:24 Checkout: 05/14/2021 16:10:00 Address: [address] [place] [address] [address] [facility] [address] PCP: aNncy Sterling PROVIDER INFORMATION Provider Role Assigned Unassigned [...] Follow-Up: With: Address: When: ROSHAN SOTOMAYOR [address] [place] [address] [employer] (1) Within 1 to 2 days Comments: Call Dr. Sotomayor's office to make a follow-up appointment in the next 1 to 2 days. With: Address: When: Nancy Sterling [address] [facility] [address] [place] [address] [employer] (1) Within 2 to 4 days Comments: Discharge diagnosis of bacterial conjunctivitis, infection of the lacrimal duct. There is no foreign body seen. Weldon lamp negative for corneal abrasions Begin Antibiotic eyedrops of tobramycin to left eye as directed Begin Keflex 500 mg every 8 hours neck 7 days. Off work for today. Apply warm compresses. Without fail follow-up with retirement specialist. DIAGNOSIS: Acute bacterial conjunctivitis of left eye; Decreased visual acuity; Discharge of eye, left; Infection of left lacrimal duct; Left eye pain; Pain and swelling of lower eyelid of left eye Patient Understands: Yes - Patient/family/caregiv er verbalizes understanding of instructions given Comment: [facility] ED Patient Summaryon 021 ED Patient Summary [facility] ? Urgent Care [address] [place] [address] PATIENT DISCHARGE INSTRUCTIONS Patient Information Name: GABBY COREAS Age: 35 Years Date of : 1985 Reason For Visit: Eye problem; UC - Eye Pain; LT EYE IRRITATION Arrival Time: 05/14/2021 14:57:24 Primary Care Physician: Nancy Sterling Attending Physician: Jose Mistry Comment: Patient Education With: Address: When: ROSHAN SOTOMAYOR [address] [place] [address] Business (1) Within 1 to 2 days Comments: Call Dr. Sotomayor's office to make a follow-up appointment in the next 1 to 2 days. With: Address: When: Nancy Sterling [address] [facility] [address] [place] [address] Business (1) Within 2 to 4 days Comments: Discharge diagnosis of bacterial conjunctivitis, infection of the lacrimal duct. There is no foreign body seen. Weldon lamp negative for corneal abrasions Begin Antibiotic eyedrops of tobramycin to left eye as directed Begin Keflex 500 mg every 8 hours neck 7 days. Off work for today. Apply warm compresses. Without fail follow-up with retirement specialist. Bacterial Conjunctivitis, Adult Bacterial conjunctivitis is an [...] to feel better. ? Take or apply laqc-wjq-maakvti and prescription medicines only as told by [...] you grover (more content not included)... Normal [facility] Eye Cultureon 05-14-2021 Eye Culture Light growth of Staphylococcus epidermidis Normal skin deborah isolated No pathogens isolated Rare epithelial cells 1+ White Blood Cells No organisms seen. Normal [facility] Comment on above: Performed By: #### [id number] #### [facility] (DEFAULT) [address] [place] [address] Urgent Care Note- Provideron 05-14-2021 Urgent Care [...] glaucoma. She does not have an active retirement specialist. ALL: NKDA Social: Nonsmoker. No Etoh. Lives in [place] Review of Systems Constitutional symptoms: No fever, [...] irritation a (more content not included)... Normal [facility] Urgent Care [place] 021 Urgent Care Record [facility] ? Urgent Care [address] [place] [address] PATIENT DISCHARGE INSTRUCTIONS Patient Information Name: GABBY [...] Discharge of eye, left (H57.89) Eye problem ([id number]) Infection of left lacrimal duct (H04.302) Left eye pain (H57.12) Pain and swelling of lower eyelid of left eye (H02.89) UC - Eye Pain ([id number]) If you received any narcotics, sedation, or [...] legal documents With: Address: When: ROSHAN SOTOMAYOR [address] [place], [place] [id number] [facility] (1) Within 1 to 2 days Comments: Call Dr. Sotomayor's office to make a follow-up appointment in the next 1 to 2 days. With: Address: When: Nancy Sterling [address] [place] [address] [address] [place] [address] [facility] (1) Within 2 to 4 days Comments: Discharge diagnosis of bacterial conjunctivitis, infection of the lacrimal duct. There is no foreign body seen. Weldon lamp negative for corneal abrasions Begin Antibiotic eyedrops of tobramycin to left eye as directed Begin Keflex 500 mg every 8 hours neck 7 days. Off work for today. Apply warm compresses. Without fail follow-up with retirement specialist. Medication Information: The exam and treatment you received today in the [facility] were for an urgent problem and are not intended as complete care. It is important for you to follow up with a doctor, nurse practitioner, or physician?s head start assistant teacher for ongoing care. If your symptoms become [...] so we can reach you if necessary. [facility] has provided you with a complete list of medications post discharge. Please inform your solar energy specialist/provider of your visit and for further instruction on these medications. Any specific questions regarding your chronic medications and dosages should be discussed with your primary care physician(s) and/or pharmacist. New Medications [facility], [address] [place] [phone], [phone] cephalexin (Keflex 500 mg oral capsule) 1 [...] Items han (more content not included)... Normal [facility] Basic Metabolic Panelon 09-25 Calcium [Mass/Vol] 8.9 mg/dL Normal 8.2-10.2 [facility] Comment on above: Performed By: #### C BC, BMP #### [facility] [address] Chloride [Moles/Vol] 104 mmol/L Normal 95-114 [facility] Comment on above: Performed By: #### C BC, BMP #### [facility] [address] CO2 [Moles/Vol] 19.7 mmol/L Low 22.0-30.0 [facility] Comment on above: Performed By: #### C BC, BMP #### [address] Creatinine [Mass/Vol] 0.70 mg/dL Normal 0.44-1.03 [facility] Comment on above: Performed By: #### C BC, BMP #### [place] [address] [place] Creatinine Clr Calc Pharmacy 125.80 [facility] Comment on above: Result Comment: PERF ORMED BY: [place] [address] PATHOLOGIST INSECTICIDE SUPERVISOR MELVIN MAI M.D. Performed By: #### C BC, BMP #### [address] Estimated GFR ( Sharon > 60 [facility] Comment on above: Result Comment: GFR estimated reference range: According to KDOQI guidelines, <60 ml/min/1.73m2 is sufficient to diagnose a patient with chronic kidney disease. Performed By: #### C BC, BMP #### [place] [address] [place] Estimated GFR (Non- Am > 60 [facility] Comment on above: Performed By: #### C BC, BMP #### [place] [address] [place] Glucose [Mass/Vol] 97 mg/dL Normal 70-100 [facility] Comment on above: Result Comment: [facility] Glucose Reference Range is dependent on time and content of last meal. Glucose of more than 200 mg/dL in a nonstressed, ambulatory subject supports the diagnosis of Diabetes Mellitus. ADA recommended reference range Performed By: #### C BC, BMP #### [facility] [address] Potassium [Moles/Vol] 4.0 mmol/L Normal 3.5-5.1 [facility] Comment on above: Performed By: #### C BC, BMP #### [facility] [address] Sodium [Moles/Vol] 134 mmol/L Low 136-146 [facility] Comment on above: Performed By: #### C BC, BMP #### [facility] [address] Urea nitrogen [Mass/Vol] 10 mg/dL Normal 9-23 [facility] Comment on above: Performed By: #### C BC, BMP #### [address] Complete Blood Count Auto Di ffon 10-19-2020 Basophils (Bld) [#/Vol] 0.1 10*3/uL Normal 0.0-0.2 [facility] Comment on above: Result Comment: PERF ORMED BY: [place] [address] PATHOLOGIST INSECTICIDE SUPERVISOR MELVIN MAI M.D. Performed By: #### C BC, BMP #### [place] [address] [place] Basophils/100 WBC (Bld) 0.8 % Normal . [facility] Comment on above: Performed By: #### C BC, BMP #### [facility] [address] Eosinophils (Bld) [#/Vol] 0.1 10*3/uL Normal 0.0-0.45 [facility] Comment on above: Performed By: #### C BC, BMP #### [facility] [address] [place] [address] [place] Eosinophils/100 WBC (Bld) 1.3 % Normal . [facility] Comment on above: Performed By: #### C BC, BMP #### [facility] [address] Erythrocyte distribution width (RBC) [Ratio] 14.5 % Normal 11.9-15.3 [facility] Comment on above: Performed By: #### C BC, BMP #### [address] Hematocrit (Bld) [Volume fraction] 34.1 % Normal 34.0-46.4 [facility] Comment on above: Performed By: #### C BC, BMP #### [address] Hemoglobin (Bld) [Mass/Vol] 11.9 g/dL Normal 11.8-15.4 [facility] Comment on above: Performed By: #### C BC, BMP #### [address] Lymphocytes (Bld) [#/Vol] 2.5 10*3/uL Normal 1.00-4.8 [facility] Comment on above: Performed By: #### C BC, BMP #### [address] Lymphocytes/100 WBC (Bld) 34.7 % Normal . [facility] Comment on above: Performed By: #### C BC, BMP #### [place] [address] [place] MCH (RBC) [Entitic mass] 29.3 pg Normal 24.7-34.3 [facility] Comment on above: Performed By: #### C BC, BMP #### [address] MCV (RBC) [Entitic vol] 83.8 fL Normal 80-100 [facility] Comment on above: Performed By: #### C BC, BMP #### [address] [place] [address] [place] Mean Corpuscular HGB Conc 34.9 g/dL Normal 32.0-35.0 [facility] Comment on above: Performed By: #### C BC, BMP #### [facility] [address] [place] [address] [place] Monocytes (Bld) [#/Vol] 0.4 10*3/uL Normal 0.0-0.8 [facility] Comment on above: Performed By: #### C BC, BMP #### [place] [address] [place] Monocytes/100 WBC (Bld) 4.9 % Normal . [facility] Comment on above: Performed By: #### C JUDD, BMP #### [address] Neutrophils (Bld) [#/Vol] 4.2 10*3/uL Normal 1.8-7.7 [facility] Comment on above: Performed By: #### C JUDD, BMP #### [place] [address] [place] Neutrophils/100 WBC (Bld) 58.3 % Normal . [facility] Comment on above: Performed By: #### C JUDD, BMP #### [place] [address] [place] Nucleated RBC/100 WBC (Bld) [Ratio] 0.1 % Normal 0-0.5 [facility] Comment on above: Performed By: #### C BC, BMP #### [place] [address] [place] Platelet mean volume (Bld) [Entitic vol] 8.6 fL Normal 6.3-10.7 [facility] Comment on above: Performed By: #### C BC, BMP #### [place] [address] [place] Platelets (Bld) [#/Vol] 298 10*3/uL Normal 150-450 [facility] Comment on above: Performed By: #### C BC, BMP #### [address] [address] [place] RBC (Bld) [#/Vol] 4.06 10*6/uL Normal 3.60-5.00 [facility] Comment on above: Performed By: #### C BC, BMP #### [facility] [address] WBC (Bld) [#/Vol] 7.2 10*3/uL Normal 4.5-11.0 [facility] Comment on above: Performed By: #### C BC, BMP #### [facility] [address] [place] [address] [place] Dipstick and Microscopicon 0 10-19-2020 Appearance (U) Clear Normal Clear [facility] Comment on above: Order Comment: Name Collection Type:: Clean-Voided Midstream Performed By: #### U HCG, ADDONUAPLUS #### [facility] [address] [place] [address] Bacteria,Urine None Seen Normal None Seen [facility] Comment on above: Order Comment: Name Collection Type:: Clean-Voided Midstream Performed By: #### U HCG, ADDONUAPLUS #### [facility] [address] [place] [address] Bilirubin,Urine Negative Normal Negative [facility] Comment on above: Order Comment: Name Collection Type:: Clean-Voided Midstream Performed By: #### U HCG, ADDONUAPLUS #### [facility] [address] [place] [address] [place] Color (U) Yellow Normal Yellow [facility] Comment on above: Order Comment: Name Collection Type:: Clean-Voided Midstream Performed By: #### U HCG, ADDONUAPLUS #### [facility] [address] [place] [address] [place] Glucose Ql (U) Normal Normal Normal [facility] Comment on above: Order Comment: Name Collection Type:: Clean-Voided Midstream Performed By: #### U HCG, ADDONUAPLUS #### [facility] [address] [place] [address] [place] Hyaline Casts,Urine 0-8 Normal 0-8 [facility] Comment on above: Order Comment: Name Collection Type:: Clean-Voided Midstream Performed By: #### U HCG, ADDONUAPLUS #### [facility] [address] [place] [address] Ketones Ql (U) Negative Normal Negative [facility] Comment on above: Order Comment: Name Collection Type:: Clean-Voided Midstream Performed By: #### U HCG, ADDONUAPLUS #### [facility] [address] [place] [address] Leukocyte esterase Test strip Ql (U) 1+ High Negative [facility] Comment on above: Order Comment: Name Collection Type:: Clean-Voided Midstream Performed By: #### U HCG, ADDONUAPLUS #### [address] Nitrite,Urine Negative Normal Negative [facility] Comment on above: Order Comment: Name Collection Type:: Clean-Voided Midstream Performed By: #### U HCG, ADDONUAPLUS #### [facility] [address] [place] [address] Occult Blood,Urine Negative Normal Negative [facility] Comment on above: Order Comment: Name Collection Type:: Clean-Voided Midstream Performed By: #### U HCG, ADDONUAPLUS #### [facility] [address] [place] [address] pH (U) 5.5 [pH] Normal 5.0-9.0 [facility] Comment on above: Order Comment: Name Collection Type:: Clean-Voided Midstream Performed By: #### U HCG, ADDONUAPLUS #### [facility] [address] [place] [address] [place] Protein,Urine Negative Normal Negative [facility] Comment on above: Order Comment: Name Collection Type:: Clean-Voided Midstream Performed By: #### U HCG, ADDONUAPLUS #### [facility] [address] [place] [address] [place] RBC LM.HPF (Urine sed) [#/Area] 0 /[HPF] Normal 0-4 [facility] Comment on above: Order Comment: Name Collection Type:: Clean-Voided Midstream Performed By: #### U HCG, ADDONUAPLUS #### [facility] [address] [place] [address] Specificy [place],Urine 1.011 Normal 1.001-1.030 [facility] Comment on above: Order Comment: Name Collection Type:: Clean-Voided Midstream Performed By: #### U HCG, ADDONUAPLUS #### [address] Squamous Epithelial Cell,Urine 5-9 High 0-2 [facility] Comment on above: Order Comment: Name Collection Type:: Clean-Voided Midstream Performed By: #### U HCG, ADDONUAPLUS #### [address] Urobilinogen,Urine Normal Normal Normal [facility] Comment on above: Order Comment: Name Collection Type:: Clean-Voided Midstream Performed By: #### U HCG, ADDONUAPLUS #### [address] WBC,Urine 3-4 Normal 0-4 [facility] Comment on above: Order Comment: Name Collection Type:: Clean-Voided Midstream Performed By: #### U HCG, ADDONUAPLUS #### [address] HCG,Urineon 10-19-2020 Beta HCG ( test) Ql (U) Negative Normal [facility] Comment on above: Order Comment: Name Collection Type:: Clean-Voided Midstream Result Comment: PERF ORMED BY: [place] [address] PATHOLOGIST [employer] SUPERVISOR MELVIN MAI M.D. Performed By: #### U HCG, ADDONUAPLUS #### [address] PROGRESSon 02-22-2017 PROGRESS HNO ID: [id number]: Blanca Delcidervice: (none)Author Type: PhysicianType: Progress NotesFiled: 02/22/2017 11:31 AMNote Text:DATE OF SERVICE: 02/18/2017PROBLEM: Gabby Coreas presents for postop visit.SURGERY AND DATE: 02/05/2017Laparoscopic right salpingo-z3nsanxkdiid and left ovarian cystectomyPATHOLOGY:LUKE TALAMANTES DIAGNOSIS1. Right ovary and fallopian tube, right [...] lb 3.2 oz) LMP 01/19/2017 BMI 40.81 kg/b7QJEVU: Normocephalic, atraumatic, mucus membranes moist and no [...] I advised her to continue her routine receiving associate store exam and cervical screening4. I advised her to call my office with any issue or concern especially ifrelated to the surgeryBlanca Morton MD, MPHCC:Isaac Carrasco PA (PCP) Normal [facility] CNOVon 02-18-2017 CNOV Office Visit (GYNOSA) GABBY COREAS ([id number]) 1985 FDate Time Provider Department02/18/17 3:20 PM [...] for postop visit.SURGERY ANDamp; DATE: 02/05/2017Laparoscopic right salpingo-i3xmxeetpcez and left ovarian cystectomyPATHOLOGY:[facility] ALBIN DIAGNOSIS1. Right ovary and fallopian tube, right [...] (223 lb 3.2 oz) LMP 01/19/2017 BMI40.81 kg/f6KQZMV: Normocephalic, atraumatic, mucus membranes moist and no [...] I advised her to continue her routine receiving associate store exam and cervical screening4. I advised her to call my office with any issue or concern especially ifrelated to the surgeryBlanca Morton MD, MPHCC:Storm Thurman, LISSETT Clark (PCP)Referring Provider: BLANCA MORTON [[id number]]Allergies As of Date: 02/18/2017(No Known Allergies)Date Reviewed: [...] some discomfort.Follow-up and Disposition History RecordedEncounter Number: [id number] Status:Closed by BLANCA MORTON MD on 02/22/17 Normal [facility] Vital Signs Date Time Vital Sign Value Performing Clinician Facility 08-28-2022 17:45-0500 Body height 157.48 cm Paige Biggs Other [facility] Other 08-28-2022 17:45-0500 Body mass index (BMI) [Ratio] 41.7 kg/m2 Paige Biggs Other [facility] Other 08-28-2022 17:45-0500 Body temperature 98.1 [degF] Paige Biggs Other [facility] Other 08-28-2022 17:45-0500 Body weight 103.42 kg Paige Biggs Other [facility] Other 08-28-2022 17:45-0500 Diastolic blood pressure 75 mm[Hg] Paige Jiménezault Other [facility] Other 08-28-2022 17:45-0500 Respiratory rate 18 /min Paige Biggs Other [facility] Other 08-28-2022 17:45-0500 SaO2% (BldA) [Mass fraction] 99 % Paige Jiménezault Other [facility] Other 08-28-2022 17:45-0500 Systolic blood pressure 129 mm[Hg] Paige Jiménezault Other [facility] Other 08-11-2022 11:15-0500 Body height 157.48 cm Ignacia Acosta Other [facility] Other 08-11-2022 11:15-0500 Body mass index (BMI) [Ratio] 41.7 kg/m2 Ignacia Acosta Other [facility] Other 08-11-2022 11:15-0500 Body temperature 98 [degF] Ignacia Acosta Other [facility] Other 08-11-2022 11:15-0500 Body weight 103.42 kg Ignacia Acosta Other [facility] Other 08-11-2022 11:15-0500 Respiratory rate 18 /min Ignacia Acosta Other [facility] Other 08-11-2022 11:15-0500 SaO2% (BldA) [Mass fraction] 98 % Ignacia Acosta Other [facility] Other Encounters Encounter Date Encounter Type Care Provider Facility Start: 05-05-2024 End: 05-05-2024 ambulatory TIM CRAWFORD Not Available Start: 10-28-2022 End: 10-29-2022 ambulatory IGNACIA RAY Facility: Start: 08-28-2022 End: 08-28-2022 ambulatory Paige Biggs Other [facility] Other Start: 08-28-2022 Office outpatient visit 15 minutes Paige Biggs [facility] Start: 08-11-2022 End: 08-11-2022 ambulatory Ignacia Karla Other [facility] Other Start: 08-11-2022 Office outpatient ne w 20 minutes Ignacia Acosta [facility] Start: 02-18-2017 End: 02-18-2017 Ambulatory BLANCA [facility] Start: 02-05-2017 End: 02-06-2017 Ambulatory [facility] Payers Date Payer Category Payer Unknown [id number] 1985 Unknown [id number] 1960 Private Health Insurance [id number] Social History Date Type Detail Facility Sex Assigned At [facility] Other Evaluation note 08-28-2022 Note Date & [...] weeks for the cough to go away [facility] Other Evaluation note 08-11-2022 Note Date & [...] days. Jul, Acute cough (ICD-10 - R05.1) [facility] Other Clinical Note 05-14-2021 Note Date & [...] to feel better. ? Take or apply [id number] and prescription medicines only as told by [...] provider. Document Revised: 11/29/2019 Document Reviewed: 03/16/2019 [employer] Patient Education ? 2019 [employer]. [facility] Summary Purpose Family History No Family [...] section and content) DATE CREATED AUTHOR 02/17/2018 [facility] DATE CREATED AUTHOR AUTHOR'S ORGANIZ ATION 02/17/2018 [facility] DATE CREATED AUTHOR AUTHOR'S ORGANIZ ATION 05/25/2021 [facility] DATE CREATED AUTHOR AUTHOR'S ORGANIZ ATION 09/08/2021 [facility] DATE CREATED AUTHOR AUTHOR'S ORGANIZ ATION 10/30/2022 [facility] DATE CREATED AUTHOR AUTHOR'S ORGANIZ ATION 05/07/2024 [facility] EPIC REASON FOR VISIT (unrecogniz ed section and [...] BE BASED ON THE PRIMARY CLINICAL RECORDS. [facility] [id number] [facility]. provides no warranty or guarantee of the accuracy or completeness of information in this document.
[2024-05-23 10:08] VITALS: BP 130/78; PULSE 95; O2SAT 96
== END 2024-05-23 10:39 | disposition home or self-care (01) ==
LOC: VC 09:55
PROVIDERS: PCP Radiology Diagnostic Radiology; Visit Provider Radiology Diagnostic Radiology
DX: I83.813 Varicose veins of bilateral lower extremities with pain (principal)
CPT/HCPCS: 36478

== ENCOUNTER 2024-05-31 07:27 | Outpatient (OUT) | payer OTHER, SELFPAY ==
--- NOTE | 2024-05-31 07:29 | VEIN_ITS ---
Patient Name: LEVI SY MR#: [id number] : 1985 Exam Date: 05/31/2024 Ordering Doctor: DR KIMBERLEY LOOMIS M.D. RADIOLOGY REPORT PROCEDURE: VC EXT VENOUS LT LIMITED COMPARISON: None. INDICATIONS: I80.02 - Phlebitis and thrombophlebitis of superficial ve... TECHNIQUE: Lower extremity richards scale and Duplex Doppler evaluation of the deep venous system from the inguinal ligament through the calf veins. FINDINGS: REGION: Left lower extremity. THROMBI: Negative for DVT. Heat induced thrombus visualized 2.3cm from the SFJ. The heat induced thrombus extends from groin to distal calf. COMPRESSIBILITY: Non-compressible segments corresponding to thrombus FLOW: Areas of no flow corresponding to thrombus OTHER: CONCLUSION: 1. Successful post ablation occlusion of left great saphenous vein. Dictated by: Kimberley Loomis M.D. on 05/31/2024 at 08:15 Approved by: Kimberley Loomis M.D. on 05/31/2024 at 08:15
--- NOTE | 2024-05-31 07:29 | VEIN_ITS ---
Patient Name: LEVI SY MR#: [id number] : 1985 Exam Date: 05/31/2024 Ordering Doctor: DR KIMBERLEY BRYAN M.D. RADIOLOGY REPORT PROCEDURE: VC FACILITY EST [facility] - OFFICE VISIT FOLLOW UP COMPARISON: None. PROGRESS NOTES: The patient reports improvement left leg tenderness for several days post procedure and mild bruising. There has been interval reduction in varicosities. The patient has followed our recommendations to walk 20-30 minutes once or twice per day since the procedure. Physical exam demonstrates decrease in varicosities of the leg. Persistent varicosities are identified along the legs bilaterally. Review of the ultrasound performed the same day demonstrates occlusive thrombus extending throughout the treated vein(s), see separate report, consistent with a successful ablation. No thrombus extending into or beyond the saphenofemoral junction. The patient expressed a desire to proceed with treatment of remaining incompetent varicosities. The patient was informed that treatment was a process and would require several procedures/sessions. VEIN/ Facility EST TD IMPRESSION: 1. Successful ablation of the left great saphenous vein(s). 2. Persistent bilateral varicose veins and lower extremity symptoms. PLAN: 1. Endovenous laser ablation right great saphenous vein. Nurse notes, history and physical were reviewed and confirmed, see attached forms. The nurse was present throughout the physical exam and consultation Dictated by: Kimberley Bryan M.D. on 05/31/2024 at 08:15 Approved by: Kimberley Bryan M.D. on 05/31/2024 at 08:18
--- OUTSIDE RECORDS SUMMARY | 2024-05-31 07:30 | XMS_ITS | CCD ---
Author Organization [facility] Inform ion Partnership [facility] Care Team Providers Care Glass Sander Belt Name Role Phone BLANCA Unavailable Unavailable BLANCA MORTON Unavailable Unavailable Ignacia Acosta Unavailable Paige Biggs Unavailable IGNACIA RAY Admitting Unavailable IGNACIA RAY Attending Unavailable IGNACIA RAY Primary Care Unavailable IGNACIA RAY Consulting Unavailable RAAD HUGHES Consulting Unavailable TIM CRAWFORD Attending Unavailable Medications Current Medications Medication Drug Class(es) Dates Sig (Normalized) Sig (Original) [id number] 200 actuat albuterol 0.09 mg/actuat metered dose [...] RAAD HUGHES Date: 2022-10-28 17:27 Normal [facility] COVID/FLU RT-PCRon 2 SARS-CoV-2 (COVID-19) RNA TOBY+probe Ql (Unsp spec) Positive [employer] Other COVID/FLU RT-PCR Negative [facility] [facility] [employer] Other Coding Summaryon 05-17-2021 Coding Summary HTMLBase 64 YiddklgpITg1sBu+PGhlYW Q+KH4NEHQeG81tuXRovR1K V2nALT8TKKQHZMGPMM0ZFS 2xzBF2QEnzN0HtatFf WovcvUQoTT33KHn7UHK8cE cpHZbtrT1xrSUzB3f4KaYn LZ21fZ48OTewMBXeQaK8Xh ZpbjsgbWFy Q7rzNsJjjKQoXby+PHRhYm xlIHdpZHRoPScxMDAlJyBz aJxqXU5sQc9dDTZjVONfcP xhcHNlOiBj r3pjSUVrROinQI6kmRnqZ2 ArxJB1NXWvq4b1Sg03nBU+ GDQgHTJ9iSkwRHpia434Xe Mvj6llPMV8 gDUhCJjgROE2P17cf4O0US JaXVYnQAP5yYN3vV8ptAfl ucudN4KbkXJwTcW7VIK2jW MzpI4dkDuy ihbvlB1aUsv+F52XNI4ZQH QJMC1HZrh5B5LdWgrapXG+ OY75XWQpAD45uEEkoCTxt2 jgcBv5UdNx TMSxUNW1nMtiDQobx4CyQO CcK51hwGCmb8O5NRHzbRhs jFAkAsGqdKS5oL4tSXlsqr eja6ucnrfb Ctbel3qpfp63rR25B68tMT zxOPMoIKO5BWHcDCDkbPob sm6tuZ7nWn1+CMcds2qth1 sqcPt1UtIb JHDeatDfnNaoDGU8g9NxQj 44L3WgwZvyj8TjIqb0wa96 lLQun8Z4eHD6CHlvGMLtpM 7uFSmbQbC1 MCGxOyWgyO00vBJnTIvtBp 2rvVxkgKmkLL4fDKUsispr NMAnmD5tOJWpaWEhlVhjPI 4wNTBpbjtm a134BkYiZQR1ZEAnyWEhX2 UgdZ0fQwSeBWOxQDEbU5Sm mDIrKYpwA572ZKjtYoO3SR QjkbQgR2Xw NGUxcJgdEmV9o0W7Lp5Bn5 YdbqnyNQC6HHvpLFZ3OjB4 HcDgWgN7N5HxLia7GEHtjS akAN3pD4Zn IFLtnppawjbwmDF4NAUrJD XawY94mZYwSZcpDh1nc0C3 p733GBKsOKDnjH18Fu9dtY ogMTBwdCBU eN2wduqrc1pvpwfvDmMrZM XoPYd0QRu3EZYldCbmYeVo ILU8MtG1FRC1cOMiqU3wkI cjyekgkA4v Oyc+Y33mhD8aENC3LWX7od epSSSwskGbIE97QR02W7Wk PjwvdGFibGU+PGRpdiBzdH wcXE2uNzKo f4vxm7ArLXkbZ8IvJNYsXF gaDah9PDYcMPD1qAT2gZ4i HSFcTPrnv7F5qIM1R2Xbjs Mhhe4lg1uv KGYsPMolM35lwLDip2Y0LF OpsXP7FXHhxGnnGxQobZ96 Oyc+UIBpwEvbb4LcZeeqs0 api1jxlWf6 ZzUjYUKagsCgxYsqNMC8y8 TzBe71C33tPJpjMATfQBWz PCBkGPRmvMehuh0qfK5zEn 8+PGNvbCB3 xYG6aF2dPYEeCiB9SZuiY2 13ZbYfcKUtMtdks4fia6te oTk3VhHxXXMjgeLzoImnFV F4j6QtTb82 I92aYYfpWACxXCFdTJReSD OccKteel1wpO6vVo8+PC9j y1itfz73fF41cYL+PHRkIH J0jQtmHVqm OXEgwJ5fIMfoGwV8VLFeJx VlmA97qRMuIEyeBy0irCnd aQflUN3vSUJfyofex385Hj Gzb7ozYMFn bOKnWHnsUFY0G38ve8X5CC YpRKIeBWJ3pPX5mZ5pxWeq bjogbGVmdDsgdmVydGljYW hcSTpfB491 IHRvcDsnPlBhdGllbnQgTm EuMRq4S8GwUes2FDKnzLtt JN9vnFZmTHzuPr5ofCptyJ zkAU4qBXYm jrjwm282VjVnk5qaEEMjlJ DgMYwsJHQ3K37ht8V6SVDr HWJnFXB9iSB9gP8bpMobdt ogbGVmdDsg vzXxgNsyQOnhSGxoO057HX RvcDsnPkJpcnRoIERhdGU6 AA02HX69iSZdq6H2qAI1E0 BhZGRpbmct yfyppBC7LOWpFNLskW12Px 0moGaxDr4iUKKfSIP0OZBk hJZfL7EjsO5oNuOxEFCdKU MpK7NxfZKp LIqpV290UWyyUrT4YVUrkl GqU6CrJVExrHtuPqB1g1E0 Fl6RS2T3ER31OB07vGVmy0 P3pIR9M3Rt YJItfrfqjftslDR3EHYjAI UrtL33Te7enMcqLt1dMVRo DST1TAIbrQIxM6TmsU8dXf AjMDAwMDAw O8GvbMOlMXswE102DYkqXv J2MAKtooIvR3RbGGYosSui LxV8x5A7Dd4AHHr7HW94LY 09eIHjb7R1 vVB0Y8UsDOXazgastaaqeP V6DZPgLJGpiA02Od3dqXma Yc1lBEBkPUK0QZOykZVlT1 ZrjO8rVuUb WUKeDMZuS4SqdPJdAPmbR1 02EMkoYuM0YORhmsKpV1Pe SXOnaPxsKcU5l7V0Tt6WVU GoPK55MGL6 uOV3VJ56XU08X1GhSawmtP FibGU+PHRhYmxlIHdpZHRo YZrvKDYdPyRdyOnwRQ5rEw 9yZGVyLWNv ePlyvNGbQiAkf7tgANZjEZ ujZM6ahDmhA7KtiKY5AOIz g5y2Us89F07rU7PelOB+PG SzuQA6yRS9 qO1fSkYvEtA7FQftR419Vj NtuHGmZmofb0cbv2pxyMr3 UpR5STUwkhJkvHpdRSM8t4 AxBl11Z87o IHdpZHRoPSIxNSUiIHZhbG vbzc7klH2kMc4+PGNvbCB3 qPS1aM4uEqHqAsC8XYwiG1 49InRvcCIv Neznx8lsz3okrWv5FiMjDK TirgYlkTalUVL7a9KpXv39 S7WzsQewa2PeYmt7md64zU Mdv2Z3yOS4 W8FlQVBcibocsUPojFlzFC 1yHQZkqcplMHPvsE1dOMZk L0l0PzDmUoZ2BZxaB9Tfyl T2FIFifEEl HBczSSS6N02gl5F0ZBCxAA BcSYY6aMH4jH7aeGideovo bGVmdDsgdmVydGljYWwtYW ryR771KNCs hLbjOYPhfH1zICSqdBYatS izUP2oHIAytxtpKrGBK5VU SjomI1EZPTMVHMWJMN63SD 02sCQrg0C6 eSR7K4QqXXUyhtvcxzjqvH Q0ZQPnEUJubA70lDNgBTse Ba0xk3H7k049JUOjKFGtnY 82Hn4raBsr QDOouVMGuH0piwefs0equs frLpArNMOrZWa2HMo3PMHg nAyyHmUwYES5MoS5JED4pS KerW4jdLzs gvdnlP5aXko+MDQvMTAvMT k9RSxmtOQ+DVUcDMR4zBix CBtaAZYqhZ1mDVVhP8o2Pu QgPlR1VWfm B8ByNBLgighnEw93lO2qOv PfPqV4EOsnR3UmsdI9OYNc xFMnHCuqBPY8M65ym0A8QQ MwMDAwMDA7 qKA7wI5uvQzkveivdMHhsW wjqsXamFirPTbvABjrW539 KIYlfWbcWsE0UKmxYVXvQT 88YQ53xCLc y0T7nDW2L5GuNIJtispsjg bzbBD4SUKoGKJzuN28qWNz FBbuLi7qb3B3n592NZEkQO MkaQ60Du7p tIigCWNrzQHGtL2jgtvgb0 lwyvtxTiNtKZPqWPm5CBb8 WGWeuJsyGiOkYWO6VnO2ZF O2bAUcnX8z zOkbncjiwA4lWoq+RkVNQU tRTK08DD57zOVqr5U5iSI7 Z6LbYGHerdabnlgfoWF3LF GcRKBahK50 mUBsYQodSl8lr8G1q431ZZ JnKMCnvN86Hr5idKosFSVe oESQkV7vlljxt7pmbrdlJl AwMDAwMDt0 LMl8NORvpRygWvZsAHL1Gp Y6MQR9rDZlzN1uaPueduoz kL7aPyj+O2L3C4DoTectaJ I+TX09HLRj RO17vLSnhQIgp4waaDp8Fz IxHDQmDPT5rFhoMYvpe8Ya ECXyM06syUMlc6D5FIHaiF xhcHNlOyBl aCH9gZ9sZMuuxemoh3qyqt zjAjfls7bvgr69iA79L75s IHdpZHRoPSIzMCUiIHZhbG gewi9yyQ8a Ii8+ITDgtTQ2nKK6zT0vMz NdQwJ9XTtaB560RpHviWXk Glwil4muz1exuFa6CrSxJP IgdmFsaWdu UQJ1n0ZjBm23X98mKIhlTT XwUDZcVLJpPXQewMscbv1d qQ1nIj1+CW1dl7lfni46zZ 48dHI+PHRk SKM7kZwiNOekMANlbL0kEX jpLqQ6LIEyFnZwnU83wKTu OVdaWh0wxHdbdPjtMO4kKU Yzrvclf442 AmBya9tlDFUscPIbNExyZM T5I57th9I7BIMxQACcLQM7 nQC1cA7yiLnmjhyyxIWbnF sgdmVydGlj ONunVZxiK975FXSdmPgfAv NdhHPeR6lzllMHEV7kDauh dGQ+FQJpNVQ0oBitICklFR NfjT1mKOSc Q1o2RuWyJqE7WFayT8Tvqf O0TIEqxHFmHUDkaWDDuJ1p cmrkp1wyqmfbMoBcNMOxPB t5CZj9JYKn yUskUdApXVG2CbW5QDE9kZ PlyY9yfFiurjtggC7qZbg+ RklOOjwvdGQ+KXBlHKB5kD xlPSdwYWRk qI1aNJZlK7b2VbIqAvQ3IJ jbU1JzowK3CTIlaOEqDOYl iIZWzV5bexqdj8sjnmerBm AwMDAwMDt0 TJn6LEFxoBjsTlElLHP7Vm N5YVP0mISzrZ9exVmzwfsc gK8dKpg+TVJOOjwvdGQ+PH OeYWQ2dXxm UPdqSNQcvY9vAPVsM3n5Kj XzMmQ4VSipN6DognF3UJGa eMQkVOFygJTGbO6vdvtfu2 xvcjogIzAw XIEkKWd0EMx1RBTqdYeyIc HqGMJ4MtN5JBQ3fEIluW3c xTokajkqrM7cVuo+UGF5ZX Y2MU82ON49 H2MyBlcfjVHkoLU+PHRhYm xlIHdpZHRoPScxMDAlJyBz uUkkYH7bXq4uTMBuADJrjS xhcHNlOiBj b2x (more content not included)... Normal [facility] ED Clinical Summaryon 2020 ED Clinical Summary [facility] ? Urgent Care [address] [place] [id number] Clinical Summary PERSON INFORMATION Name: GABBY COREAS Age: 35 Years Sex: FEMALE : 1985 MRN: Acct#: Visit Reason: Eye problem; UC - Eye Pain; LT EYE IRRITATION Arrival: 05/14/2021 14:57:24 Discharge: 05/14/2021 16:10:00 LOS: 000 01:13 Check In: 05/14/2021 14:57:24 Checkout: 05/14/2021 16:10:00 Address: [address] [place] [address] [facility] [address] PCP: Nancy Sterling PROVIDER INFORMATION Provider Role [...] Follow-Up: With: Address: When: ROSHAN SOTOMAYOR [address] [place] [address] InSupply (1) Within 1 to 2 days Comments: Call Dr. Sotomayor's office to make a follow-up appointment in the next 1 to 2 days. With: Address: When: Nancy Sterling [address] [facility] [address] [place] [address] InSupply (1) Within 2 to 4 days Comments: Discharge diagnosis of bacterial conjunctivitis, infection of the lacrimal duct. There is no foreign body seen. Weldon lamp negative for corneal abrasions Begin Antibiotic eyedrops of tobramycin to left eye as directed Begin Keflex 500 mg every 8 hours neck 7 days. Off work for today. Apply warm compresses. Without fail follow-up with career transition specialist. DIAGNOSIS: Acute bacterial conjunctivitis of left eye; Decreased visual acuity; Discharge of eye, left; Infection of left lacrimal duct; Left eye pain; Pain and swelling of lower eyelid of left eye Patient Understands: Yes - Patient/family/caregiv er verbalizes understanding of instructions given Comment: [facility] ED Patient Summaryon 021 ED Patient Summary [facility] ? Urgent Care [address] [place] [address] PATIENT DISCHARGE INSTRUCTIONS Patient Information Name: GABBY COREAS Age: 35 Years Date of : 1985 Reason For Visit: Eye problem; UC - Eye Pain; LT EYE IRRITATION Arrival Time: 05/14/2021 14:57:24 Primary Care Physician: Nancy Sterling Attending Physician: Jose Mistry Comment: Patient Education With: Address: When: ROSHAN SOTOMAYOR [address] [place] [address] Business (1) Within 1 to 2 days Comments: Call Dr. Sotmoayor's office to make a follow-up appointment in the next 1 to 2 days. With: Address: When: Nancy Sterling [address] [facility] [place] [address] Business (1) Within 2 to 4 days Comments: Discharge diagnosis of bacterial conjunctivitis, infection of the lacrimal duct. There is no foreign body seen. Weldon lamp negative for corneal abrasions Begin Antibiotic eyedrops of tobramycin to left eye as directed Begin Keflex 500 mg every 8 hours neck 7 days. Off work for today. Apply warm compresses. Without fail follow-up with career transition specialist. Bacterial Conjunctivitis, Adult Bacterial conjunctivitis is [...] to feel better. ? 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 Normal [facility] Eye Cultureon 05-14-2021 Eye Culture Light growth of Staphylococcus epidermidis Normal skin deborah isolated No pathogens isolated Rare epithelial cells 1+ White Blood Cells No organisms seen. Normal [facility] Comment on above: Performed By: #### [id number] #### [facility] (DEFAULT) [address] [place] [address] Urgent Care Note- Provideron 05-14-2021 Urgent Care [...] glaucoma. She does not have an active career transition specialist. ALL: NKDA Social: Nonsmoker. No Etoh. Lives in [place] Review of Systems Constitutional symptoms: No fever, [...] irritation a (more content not included)... Normal [facility] [place] 021 Urgent Care Record [facility] ? Urgent Care [address] [place] [address] PATIENT DISCHARGE INSTRUCTIONS Patient Information Name: GABBY [...] Discharge of eye, left (H57.89) Eye problem ([id number]) Infection of left lacrimal duct (H04.302) Left eye pain (H57.12) Pain and swelling of lower eyelid of left eye (H02.89) UC - Eye Pain ([id number]) If you received any narcotics, sedation, or [...] legal documents With: Address: When: ROSHAN SOTOMAYOR [address] [place], [place] [id number] [facility] (1) Within 1 to 2 days Comments: Call Dr. Sotomayor's office to make a follow-up appointment in the next 1 to 2 days. With: Address: When: Nancy Sterling [address] [place] [address] [address] [place] [address] [facility] (1) Within 2 to 4 days Comments: Discharge diagnosis of bacterial conjunctivitis, infection of the lacrimal duct. There is no foreign body seen. Weldon lamp negative for corneal abrasions Begin Antibiotic eyedrops of tobramycin to left eye as directed Begin Keflex 500 mg every 8 hours neck 7 days. Off work for today. Apply warm compresses. Without fail follow-up with career transition specialist. Medication Information: The exam and treatment you received today in the [facility] were for an urgent problem and are not intended as complete care. It is important for you to follow up with a doctor, nurse practitioner, or physician?s veterinary assistant for ongoing care. If your symptoms [...] so we can reach you if necessary. [facility] has provided you with a complete list of medications post discharge. Please inform your director federal/provider of your visit and for further instruction on these medications. Any specific questions regarding your chronic medications and dosages should be discussed with your primary care physician(s) and/or pharmacist. New Medications [facility], [address] [place] [phone], [phone] cephalexin (Keflex 500 mg oral capsule) 1 [...] Items han (more content not included)... Normal [facility] Basic Metabolic Panelon 09-25 Calcium [Mass/Vol] 8.9 mg/dL Normal 8.2-10.2 [facility] Comment on above: Performed By: #### C BC, BMP #### [facility] [address] Chloride [Moles/Vol] 104 mmol/L Normal 95-114 [facility] Comment on above: Performed By: #### C BC, BMP #### [facility] [address] CO2 [Moles/Vol] 19.7 mmol/L Low 22.0-30.0 [facility] Comment on above: Performed By: #### C BC, BMP #### [address] Creatinine [Mass/Vol] 0.70 mg/dL Normal 0.44-1.03 [facility] Comment on above: Performed By: #### C BC, BMP #### [place] [address] [place] Creatinine Clr Calc Pharmacy 125.80 [facility] Comment on above: Result Comment: PERF ORMED BY: [place] [address] PATHOLOGIST DRUM OPERATOR MELVIN MAI M.D. Performed By: #### C BC, BMP #### [address] Estimated GFR ( Sharon > 60 [facility] Comment on above: Result Comment: GFR estimated reference range: According to KDOQI guidelines, <60 ml/min/1.73m2 is sufficient to diagnose a patient with chronic kidney disease. Performed By: #### C BC, BMP #### [place] [address] [place] Estimated GFR (Non- Am > 60 [facility] Comment on above: Performed By: #### C BC, BMP #### [place] [address] [place] Glucose [Mass/Vol] 97 mg/dL Normal 70-100 [facility] Comment on above: Result Comment: [facility] Glucose Reference Range is dependent on time and content of last meal. Glucose of more than 200 mg/dL in a nonstressed, ambulatory subject supports the diagnosis of Diabetes Mellitus. ADA recommended reference range Performed By: #### C BC, BMP #### [facility] [address] Potassium [Moles/Vol] 4.0 mmol/L Normal 3.5-5.1 [facility] Comment on above: Performed By: #### C BC, BMP #### [facility] [address] Sodium [Moles/Vol] 134 mmol/L Low 136-146 [facility] Comment on above: Performed By: #### C BC, BMP #### [facility] [address] Urea nitrogen [Mass/Vol] 10 mg/dL Normal 9-23 [facility] Comment on above: Performed By: #### C BC, BMP #### [address] Complete Blood Count Auto Di ffon 10-19-2020 Basophils (Bld) [#/Vol] 0.1 10*3/uL Normal 0.0-0.2 [facility] Comment on above: Result Comment: PERF ORMED BY: [place] [address] PATHOLOGIST DRUM OPERATOR MELVIN MAI M.D. Performed By: #### C BC, BMP #### [place] [address] [place] Basophils/100 WBC (Bld) 0.8 % Normal . [facility] Comment on above: Performed By: #### C BC, BMP #### [facility] [address] Eosinophils (Bld) [#/Vol] 0.1 10*3/uL Normal 0.0-0.45 [facility] Comment on above: Performed By: #### C BC, BMP #### [facility] [address] [place] [address] [place] Eosinophils/100 WBC (Bld) 1.3 % Normal . [facility] Comment on above: Performed By: #### C BC, BMP #### [facility] [address] Erythrocyte distribution width (RBC) [Ratio] 14.5 % Normal 11.9-15.3 [facility] Comment on above: Performed By: #### C BC, BMP #### [address] Hematocrit (Bld) [Volume fraction] 34.1 % Normal 34.0-46.4 [facility] Comment on above: Performed By: #### C BC, BMP #### [address] Hemoglobin (Bld) [Mass/Vol] 11.9 g/dL Normal 11.8-15.4 [facility] Comment on above: Performed By: #### C BC, BMP #### [address] Lymphocytes (Bld) [#/Vol] 2.5 10*3/uL Normal 1.00-4.8 [facility] Comment on above: Performed By: #### C BC, BMP #### [address] Lymphocytes/100 WBC (Bld) 34.7 % Normal . [facility] Comment on above: Performed By: #### C BC, BMP #### [place] [address] [place] MCH (RBC) [Entitic mass] 29.3 pg Normal 24.7-34.3 [facility] Comment on above: Performed By: #### C BC, BMP #### [address] MCV (RBC) [Entitic vol] 83.8 fL Normal 80-100 [facility] Comment on above: Performed By: #### C BC, BMP #### [address] [place] [address] [place] Mean Corpuscular HGB Conc 34.9 g/dL Normal 32.0-35.0 [facility] Comment on above: Performed By: #### C BC, BMP #### [facility] [address] [place] [address] [place] Monocytes (Bld) [#/Vol] 0.4 10*3/uL Normal 0.0-0.8 [facility] Comment on above: Performed By: #### C BC, BMP #### [place] [address] [place] Monocytes/100 WBC (Bld) 4.9 % Normal . [facility] Comment on above: Performed By: #### C JUDD, BMP #### [address] Neutrophils (Bld) [#/Vol] 4.2 10*3/uL Normal 1.8-7.7 [facility] Comment on above: Performed By: #### C JUDD, BMP #### [place] [address] [place] Neutrophils/100 WBC (Bld) 58.3 % Normal . [facility] Comment on above: Performed By: #### C JUDD, BMP #### [place] [address] [place] Nucleated RBC/100 WBC (Bld) [Ratio] 0.1 % Normal 0-0.5 [facility] Comment on above: Performed By: #### C BC, BMP #### [place] [address] [place] Platelet mean volume (Bld) [Entitic vol] 8.6 fL Normal 6.3-10.7 [facility] Comment on above: Performed By: #### C BC, BMP #### [place] [address] [place] Platelets (Bld) [#/Vol] 298 10*3/uL Normal 150-450 [facility] Comment on above: Performed By: #### C BC, BMP #### [address] [address] [place] RBC (Bld) [#/Vol] 4.06 10*6/uL Normal 3.60-5.00 [facility] Comment on above: Performed By: #### C BC, BMP #### [facility] [address] WBC (Bld) [#/Vol] 7.2 10*3/uL Normal 4.5-11.0 [facility] Comment on above: Performed By: #### C BC, BMP #### [facility] [address] [place] [address] [place] Dipstick and Microscopicon 0 10-19-2020 Appearance (U) Clear Normal Clear [facility] Comment on above: Order Comment: Name Collection Type:: Clean-Voided Midstream Performed By: #### U HCG, ADDONUAPLUS #### [facility] [address] [place] [address] Bacteria,Urine None Seen Normal None Seen [facility] Comment on above: Order Comment: Name Collection Type:: Clean-Voided Midstream Performed By: #### U HCG, ADDONUAPLUS #### [facility] [address] [place] [address] Bilirubin,Urine Negative Normal Negative [facility] Comment on above: Order Comment: Name Collection Type:: Clean-Voided Midstream Performed By: #### U HCG, ADDONUAPLUS #### [facility] [address] [place] [address] [place] Color (U) Yellow Normal Yellow [facility] Comment on above: Order Comment: Name Collection Type:: Clean-Voided Midstream Performed By: #### U HCG, ADDONUAPLUS #### [facility] [address] [place] [address] [place] Glucose Ql (U) Normal Normal Normal [facility] Comment on above: Order Comment: Name Collection Type:: Clean-Voided Midstream Performed By: #### U HCG, ADDONUAPLUS #### [facility] [address] [place] [address] [place] Hyaline Casts,Urine 0-8 Normal 0-8 [facility] Comment on above: Order Comment: Name Collection Type:: Clean-Voided Midstream Performed By: #### U HCG, ADDONUAPLUS #### [facility] [address] [place] [address] Ketones Ql (U) Negative Normal Negative [facility] Comment on above: Order Comment: Name Collection Type:: Clean-Voided Midstream Performed By: #### U HCG, ADDONUAPLUS #### [facility] [address] [place] [address] Leukocyte esterase Test strip Ql (U) 1+ High Negative [facility] Comment on above: Order Comment: Name Collection Type:: Clean-Voided Midstream Performed By: #### U HCG, ADDONUAPLUS #### [address] Nitrite,Urine Negative Normal Negative [facility] Comment on above: Order Comment: Name Collection Type:: Clean-Voided Midstream Performed By: #### U HCG, ADDONUAPLUS #### [facility] [address] [place] [address] Occult Blood,Urine Negative Normal Negative [facility] Comment on above: Order Comment: Name Collection Type:: Clean-Voided Midstream Performed By: #### U HCG, ADDONUAPLUS #### [facility] [address] [place] [address] pH (U) 5.5 [pH] Normal 5.0-9.0 [facility] Comment on above: Order Comment: Name Collection Type:: Clean-Voided Midstream Performed By: #### U HCG, ADDONUAPLUS #### [facility] [address] [place] [address] [place] Protein,Urine Negative Normal Negative [facility] Comment on above: Order Comment: Name Collection Type:: Clean-Voided Midstream Performed By: #### U HCG, ADDONUAPLUS #### [facility] [address] [place] [address] [place] RBC LM.HPF (Urine sed) [#/Area] 0 /[HPF] Normal 0-4 [facility] Comment on above: Order Comment: Name Collection Type:: Clean-Voided Midstream Performed By: #### U HCG, ADDONUAPLUS #### [facility] [address] [place] [address] Specificy [place],Urine 1.011 Normal 1.001-1.030 [facility] Comment on above: Order Comment: Name Collection Type:: Clean-Voided Midstream Performed By: #### U HCG, ADDONUAPLUS #### [address] Squamous Epithelial Cell,Urine 5-9 High 0-2 [facility] Comment on above: Order Comment: Name Collection Type:: Clean-Voided Midstream Performed By: #### U HCG, ADDONUAPLUS #### [address] Urobilinogen,Urine Normal Normal Normal [facility] Comment on above: Order Comment: Name Collection Type:: Clean-Voided Midstream Performed By: #### U HCG, ADDONUAPLUS #### [address] WBC,Urine 3-4 Normal 0-4 [facility] Comment on above: Order Comment: Name Collection Type:: Clean-Voided Midstream Performed By: #### U HCG, ADDONUAPLUS #### [address] HCG,Urineon 10-19-2020 Beta HCG ( test) Ql (U) Negative Normal [facility] Comment on above: Order Comment: Name Collection Type:: Clean-Voided Midstream Result Comment: PERF ORMED BY: [place] [address] PATHOLOGIST DRUM OPERATOR MELVIN MAI M.D. Performed By: #### U HCG, ADDONUAPLUS #### [address] PROGRESSon 02-22-2017 PROGRESS HNO ID: [id number]: Blanca Delcidervice: (none)Author Type: PhysicianType: Progress NotesFiled: 02/22/2017 11:31 AMNote Text:DATE OF SERVICE: 02/18/2017PROBLEM: Gabby Coreas presents for postop visit.SURGERY AND DATE: 02/05/2017Laparoscopic right salpingo-[id number] and left ovarian cystectomyPATHOLOGY:LUKE TALAMANTES DIAGNOSIS1. 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 I advised her to call my office with any issue or concern especially ifrelated to the surgeryBlanca Morton MD, MPHCC:Isaac Carrasco PA (PCP) Normal [facility] CNOVon 02-18-2017 CNOV Office Visit (GYNOSA) GABBY COREAS ([id number]) 1985 FDate Time Provider Department02/18/17 3:20 PM [...] for postop visit.SURGERY ANDamp; DATE: 02/05/2017Laparoscopic right salpingo-[id number] and left ovarian cystectomyPATHOLOGY:FI ALBIN DIAGNOSIS1. Right [...] (223 lb 3.2 oz) LMP 01/19/2017 BMI40.81 kg/x8PPRBK: Normocephalic, atraumatic, mucus membranes moist and no [...] I advised her to continue her routine golf superintendent exam and cervical screening4. I advised her to call my office with any issue or concern especially ifrelated to the surgeryBlanca Morton MD, MPHCC:Storm Thurman, LISSETT Clark (PCP)Referring Provider: BLANCA MORTON [[id number]]Allergies As of Date: 02/18/2017(No Known Allergies)Date Reviewed: [...] some discomfort.Follow-up and Disposition History RecordedEncounter Number: [id number] Status:Closed by BLANCA MORTON MD on 02/22/[address] [facility] Vital Signs Date Time Vital Sign Value Performing Clinician Facility 08-28-2022 17:45-0500 Body height 157.48 cm Paige Biggs Other [facility] Other 08-28-2022 17:45-0500 Body mass index (BMI) [Ratio] 41.7 kg/m2 Paige Biggs Other [facility] Other 08-28-2022 17:45-0500 Body temperature 98.1 [degF] Paige Biggs Other [facility] Other 08-28-2022 17:45-0500 Body weight 103.42 kg Paige Biggs Other [facility] Other 08-28-2022 17:45-0500 Diastolic blood pressure 75 mm[Hg] Paige Jiménezault Other [facility] Other 08-28-2022 17:45-0500 Respiratory rate 18 /min Paige Biggs Other [facility] Other 08-28-2022 17:45-0500 SaO2% (BldA) [Mass fraction] 99 % Paige Jiménezault Other [facility] Other 08-28-2022 17:45-0500 Systolic blood pressure 129 mm[Hg] Paige Jiménezault Other [facility] Other 08-11-2022 11:15-0500 Body height 157.48 cm Ignacia Acosta Other [facility] Other 08-11-2022 11:15-0500 Body mass index (BMI) [Ratio] 41.7 kg/m2 Ignacia Acosta Other [facility] Other 08-11-2022 11:15-0500 Body temperature 98 [degF] Ignacia Acosta Other [facility] Other 08-11-2022 11:15-0500 Body weight 103.42 kg Ignacia Acosta Other [facility] Other 08-11-2022 11:15-0500 Respiratory rate 18 /min Ignacia Acosta Other [facility] Other 08-11-2022 11:15-0500 SaO2% (BldA) [Mass fraction] 98 % Ignacia Acosta Other [facility] Other Encounters Encounter Date Encounter Type Care Provider Facility Start: 05-05-2024 End: 05-05-2024 ambulatory TIM CRAWFORD Not Available Start: 10-28-2022 End: 10-29-2022 ambulatory IGNACIA RAY Facility: Start: 08-28-2022 End: 08-28-2022 ambulatory Paige Biggs Other [facility] Other Start: 08-28-2022 Office outpatient visit 15 minutes Paige Biggs [facility] Start: 08-11-2022 End: 08-11-2022 ambulatory Ignacia Karla Other [facility] Other Start: 08-11-2022 Office outpatient ne w 20 minutes Ignacia Acosta [facility] Start: 02-18-2017 End: 02-18-2017 Ambulatory BLANCA [facility] Start: 02-05-2017 End: 02-06-2017 Ambulatory [facility] Payers Date Payer Category Payer Unknown [id number] 1985 Unknown [id number] 1960 Private Health Insurance [id number] Social History Date Type Detail Facility Sex Assigned At [facility] Other Evaluation note 08-28-2022 Note Date & [...] weeks for the cough to go away [facility] Other Evaluation note 08-11-2022 Note Date & [...] days. Jul, Acute cough (ICD-10 - R05.1) [facility] Other Clinical Note 05-14-2021 Note Date & [...] to feel better. ? Take or apply lhan-hyf-rxynnlk and prescription medicines only as told by [...] provider. Document Revised: 11/29/2019 Document Reviewed: 03/16/2019 [employer] Patient Education ? 2019 [employer]. [facility] Summary Purpose Family History No Family [...] DATE CREATED AUTHOR AUTHOR'S ORGANIZ ATION 02/17/2018 [facility] DATE CREATED AUTHOR AUTHOR'S ORGANIZ ATION 05/25/2021 [facility] DATE CREATED AUTHOR AUTHOR'S ORGANIZ ATION 09/08/2021 [facility] DATE CREATED AUTHOR AUTHOR'S ORGANIZ ATION 10/30/2022 [facility] DATE CREATED AUTHOR AUTHOR'S ORGANIZ ATION 05/07/2024 [facility] EPIC REASON FOR VISIT (unrecogniz [...] BASED ON THE PRIMARY CLINICAL RECORDS. [facility] [employer] [facility]. provides no warranty or guarantee of the accuracy or completeness of information in this document.
--- NOTE | 2024-05-31 07:43 | VEINCLINIC_ITS ---
Vital Signs 05/31/24 07:44 Height 5 ft 2 in Weight 113 kg BMI 45.6 Varicose Veins Patient in this day for follow up ultrasound post EVLT of left GSV Jm Fishman MD personally performed the services described in this documentation, as scribed by Latricia Melendez RVT, RDMS in my presence and it is both accurate and complete. Latricia Fishman RVT, RDMS, am scribing for, and in the presence of, Dr. Jm Loomis and in the presence of the patient. . knee: bilateral (symptoms most noted to right foot), calf: bilateral, ankle: bilateral and vance: bilateral aching, burning, cramping, dull and tender 9 months Worsened in recent months: Yes standing and sitting elevating extremities and other (massaging areas) Reports muscle spasms of leg, heaviness, limb pain, edema and leg edema History of lower extremity trauma: No Superficial thrombophlebitis: No Family history of varicose veins: no Has patient had previous lower extremity venous surgery: No Patient has previously received the following treatment(s) for lower extremity varicose veins: Reports none Does patient have a history of : yes Does patient intend to have future pregnancies: no Has patient had lower extremity venous scan with relux testing: No Support hose used: Yes Problems walking or doing physical activity: Yes How does it affect you: dificulty due to pain Do you walk much: Yes Do you stand much: Yes Review of Systems ROS Narrative Jm Fishman MD personally performed the services described in this documentation, as scribed by Latricia Melendez RVT, RDMS in my presence and it is both accurate and complete. Latricia Fishman RVT, RDMS, am scribing for, and in the presence of, Dr. Jm Loomis and in the presence of the patient. Status of ROS 10 or more systems reviewed and unremark able except as noted in history and below Cardiovascular Reports: edema Integumentary/Breast Reports: skin tenderness and skin swelling Neurological Reports: weakness in extremities [facility] Medical History (Updated 05/31/24 @ 07:46 by Latricia Melendez) Phlebitis and thrombophlebitis of superficial vessels of left lower extremity ?I80.02 - Phlebitis and thrombophlebitis of superficial vessels of left lower extremity (ICD-10) Varicose veins of bilateral lower extremities with pain ?I83.813 - Varicose veins of bilateral lower extremities with pain (ICD-10) Bilateral leg edema ?R60.0 - Localized edema (ICD-10) Osteoarthritis ?M19.90 - Unspecified osteoarthritis, unspecified site (ICD-10) Calcified lymph nodes ?I89.8 - Other specified noninfective disorders of lymphatic vessels and lymph nodes (ICD-10) Calcified granuloma of lung ?J84.10 - Pulmonary fibrosis, unspecified (ICD-10) Obesities, morbid ?E66.01 - Morbid (severe) obesity due to excess calories (ICD-10) Surgical History (Updated 05/23/24 @ 11:12 by Jason Costa) Status post laser ablation of incompetent vein ?Z98.890 - Other specified postprocedural states (ICD-10) H/O oophorectomy H/O dilation and curettage ?Z98.890 - Other specified postprocedural states (ICD-10) H/O laparoscopy ?Z98.890 - Other specified postprocedural states (ICD-10) Family History (Updated 04/20/24 @ 13:36 by Jason Costa) Father Family history of diabetes mellitus Other Lupus Social History (Updated 04/26/24 @ 08:42 by Jason Costa) Within the past year, how often did you have a drink containing alcohol: 2-4 times a month Smoking status: Never smoker Non-prescribed substance use: denies use Meds Home Medications and Allergies Home Medications ?Medication ?Instructions ?Recorded ?Confirmed ?Type cholecalciferol (vitamin D3) 50 04/26/24 History mcg (2,000 unit) capsule diclofenac sodium 75 mg mg PO 04/26/24 History tablet,delayed release Allergies Allergy/AdvReac Type Severity Reaction Status Date / Time No Known Drug Allergies Allergy Verified 04/26/24 13:01 Exam Narrative Exam Narrative: IJm MD personally performed the services described in this documentation, as scribed by Latricia Melendez RVT, RDMS in my presence and it is both accurate and complete. I, Latricia Melendez RVT, RDMS, am scribing for, and in the presence of, Dr. Jm Loomis and in the presence of the patient. Constitutional Documenting provider has reviewed patient's vital signs: yes Common normals: oriented x3 Nutritional appearance: overweight Lymph Lymphatic: no lymphedema noted Cardio Peripheral pulses: posterior tibial pulses present and dorsalis pedis pulses present Extremity Common normals: normal capillary refill General: calf tenderness and edema Right lower extremity: lower leg Right lower leg: inspection and palpation Left lower extremity: lower leg Left lower leg: inspection and palpation Neuro Common normals: oriented x3 Results Additional Findings Additional findings: The ultrasound demonstrates Heat induced thrombus visualized 2.3cm from the SFJ. The heat induced thrombus extends from groin to distal calf. Assessment and Plan Assessment and Plan (1) Varicose veins of bilateral lower extremities with pain: (2) Phlebitis and thrombophlebitis of superficial vessels of left lower extremity: Plan Patient in today for follow up ultrasound of lower extremity following treatment of EVLT of left leg GSV completed on 05/23/24.
[2024-05-31 07:44] VITALS: BMI 45.6
--- NOTE | 2024-05-31 07:46 | P.DS_ITS ---
Discharge Plan Discharge Disposition: Home, Self-Care Outpatient Diagnostics: [facility] Endovenous Ablation 1VeinRT (Routine) Timeframe: 2 Weeks Facility: [facility] - Location: [facility] Ordered By: Jm Loomis Plan of Treatment: EVLT of right leg GSV. Print Language: Peruvian Discharge Date/Time: 05/31/24 07:56
== END 2024-05-31 07:56 | disposition home or self-care (01) ==
PROVIDERS: PCP Radiology Diagnostic Radiology; Visit Provider Radiology Diagnostic Radiology
DX: I80.02 Phlebitis and thrombophlebitis of superficial vessels of left lower extremity (principal)
CPT/HCPCS: 93971; G0463

== ENCOUNTER 2024-07-01 08:08 | Outpatient (OUT) | payer OTHER, SELFPAY ==
--- NOTE | 2024-07-01 08:09 | VEIN_ITS ---
Patient Name: LEVI SY MR#: [id number] : 1985 Exam Date: 07/01/2024 Ordering Doctor: DR RAAD ANDUJAR M.D. RADIOLOGY REPORT PROCEDURE: [facility] EST [facility] - OFFICE VISIT FOLLOW UP COMPARISON: [facility] ENDOVENOUS ABLATION 1VEINLT, 05/23/2024. [facility] FACILITY EST LMTD, 05/31/2024. PROGRESS NOTES: The patient reports mild erythema, swelling, and recent bleeding at site of entry for recent left great saphenous vein ablation, which has recently improved. Physical exam demonstrates no appreciable swelling, abscess, bleeding/seepage at site, or significant erythema surrounding site of entry. The patient expressed a desire to proceed with treatment of remaining varicosities when her work schedule allow is. The patient was informed that treatment was a process and would require several procedures/sessions. VEIN/ Facility EST LMTD IMPRESSION: 1. No appreciable infection at site of recent vein entry of lower left leg. Patient describes that this has improved. PLAN: 1. Patient follow-up with vein center if appearance/symptoms worsen. Patient will be placed on antibiotics at that time. It appears that any infection that may have been present has resolved. 2. Ablation of remaining incompetent varicosities when patient's work schedule allows. Nurse notes, history and physical were reviewed and confirmed, see attached forms. The nurse was present throughout the physical exam and consultation Dictated by: Jm Loomis M.D. on 07/01/2024 at 12:06 Approved by: Jm Loomis M.D. on 07/01/2024 at 12:10
--- OUTSIDE RECORDS SUMMARY | 2024-07-01 08:13 | XMS_ITS | CCD ---
Author Organization [facility] Inform ion Partnership [facility] Care Team Providers Care [employer] Developer Name Role Phone BLANCA Unavailable Unavailable BLANCA MORTON Unavailable Unavailable Ignacia Acosta Unavailable Paige Biggs Unavailable IGNACIA RAY Admitting Unavailable IGNACIA RAY Attending Unavailable IGNACIA RAY Primary Care Unavailable IGNACIA RAY Consulting Unavailable RAAD HUGHES Consulting Unavailable TIM CRAWFORD Attending Unavailable Medications Current Medications Medication Drug Class(es) Dates Sig (Normalized) Sig (Original) [id number] 200 actuat albuterol 0.09 mg/actuat metered dose [...] RAAD HUGHES Date: 2022-10-28 17:27 Normal [facility] COVID/FLU RT-PCRon 2 SARS-CoV-2 (COVID-19) RNA TOBY+probe Ql (Unsp spec) Positive Voxeet Other COVID/FLU RT-PCR Negative charming charlie [facility] Quvium Other Coding Summaryon 05-17-2021 Coding Summary HTMLBase 64 OzjknijqOJr6fKr+PGhlYW Q+LY8RTXQzX60pcYUqmK1S Q7iUDO9XHEKYWJVTMM4MJT 9nhHK5UZzxL0MmplHh ZwaywHPyGD48NWl8BMW3fH gpAWujfD0zoWLgY3e6MbUr IU83pU89GAhtSZSeFiO6It ZpbjsgbWFy A0psPmVhvCBsXqm+PHRhYm xlIHdpZHRoPScxMDAlJyBz jDhjOQ6jJm7tFSEsOUNqdR xhcHNlOiBj k4nkXRNzURdxZQ9oeZcoN6 JezKB3QXAhc9k3Yx17eOL+ UHFvVZP3yWweKVceo447Vg Vwf7afUPX5 wWYoEYycYDP7M39td2N1VG CgLNWhTYU8pNC1yN8wiMpw heieK2NqaMPvMpM5ACI3cF MawA2yzEak iamasK0nYqb+Z89YET2SOH DYCE2ZSec9A6VaRpqhaKS+ VK70BVFaXO81iTOesAEfg4 oezRy6AmCu FRFiIJU8bKrmAWgpk2AkVJ NqQ34dvAGus7P8NIXstRfl kHFpCtQldTT1jT9yLRsmtd uzr0ewydkg Vcbol3irur22wE30J03vRU bnULChHAS8JMBgPJGeuOwr di5rfF2xGf3+UYssl7vcp6 qzlUd0SbJn VOUvubZcpCnrZQU3a8JnYm 38Z6MpwIirz3PlUjj9fo38 vAKtx9G2nDE9ZHgrYSKmwU 3jYVmmCsP2 XOTpGtIamO45xCTkDRafDe 1tqKaqmAutER7zIEKhprst QWTncE6yVHRbjKQqzYhvGH 4wNTBpbjtm b056VgSyCHW4GRTjjPUzA5 HrnQ9pBgMpQBJiZVJsE4La qSEdIJikH014NDbhBeY6EY AcofFbJ7Ks ZYBtrKlxDwR1t6I6Vd5Qv4 QavftaVMH9ESsuRHS0KuN9 YgZdDbS6I9KaPsg1QIGvnV vcBU0nB4Yq KAOpcqafyvdccBP9CBQwXE EmhG25tAHuIUhoJv3na6S3 s456HLRzTWQvhA08Zi6xjH ogMTBwdCBU lQ0yhmmwm9mfiavbCaYlHG ZzCRx8LZw1HOSwoVvaRhXf XOH4YjM9BVZ4nLChoZ9omF rzatsjzK4e Oyc+V86esJ4kLOO9EAQ3kn ccTVAsiaXkAT45PC36R3Ij PjwvdGFibGU+PGRpdiBzdH exRR9tNqMu x8uee8LaAAfuS4IhSIKiHA dtIwl8TRFlZMG6wYF2vM0n LCIhCKurm5Q3xAS7K0Rjia Nzro3zm5tu MZQzXVqeS14moMUnm8R2XM IfkFP4NSOupOwrDxEgfI09 Oyc+BIVhoHytu1CnGcfnz2 ald6hahTo8 AvTpCXLbndWopZstZSQ3u6 WdFf94M35oHGjeCITpYVNq JZHnTPJeuPxkla6pdP7uUh 8+PGNvbCB3 zNJ9gZ6nPJJjGvT4BRtnT5 62VmTekUAuWhzvx0cbf2mh mCy5WeVqOEYxieElbQnuEO Z9u8NtHi88 Y36oWPpmYYWlSAIfDKJpWY BukJdjbh2osB4wLp5+PC9j n3oatn11iR45aUZ+PHRkIH S7vKntMChh LMLwaC2sKYvlDkV8QRFeSh VqiD90aSSvMLqeMe0esPvk rVqhTH9oZFGyrbkjt721Ph Dti4idZEDy qWImAZisBWF8S18oq2F3QZ QeZHCoKVG8nUH7pQ3ksOgv bjogbGVmdDsgdmVydGljYW shAYxjQ862 IHRvcDsnPlBhdGllbnQgTm ZxHYs5D5HzIae6IDYjsJzc BK3nxBFnCEhuHk7wfSbmiC tkDU7kUBLr ugqoz274CeMen4cmAHVkeW NaDJocHTX4U59cm0F1BZGe XKImRRD5zHI9wS7jtQaird ogbGVmdDsg ieLppGpcLDaeVVowT518UX RvcDsnPkJpcnRoIERhdGU6 JX81JG84tZPoc0C2jWN0O4 BhZGRpbmct sevxpBL6PAKeZVLmvI64Lv 5zbIksHj4uZUHoPDG1HNRa oEFkR0WjlK1jMoFdCPAgFE HpB5FemTMd WTkvZ275TBucHpZ2ZFXpsc GiK6WtMHZoxNapDtV2b1L8 Wb8MB0B8CW85YC12xQRhd8 Q4bEG4G0Jb ZNYqoqowzxvjyNB0QCLdYJ PxyW20Us7voYubZm3wWREg AUO8YFZpoUVmJ3YfcZ2hWk AjMDAwMDAw M1XxoXQmQFxzO812VDmaYe U5EFZvvaKaV9JkDMFxmCbw CpB3m4A2Zf1HDHh3YP65MZ 68wHZgx8Q9 mUB1U1SzQHAcycujykdnmA N4LTAuZIVilR59Em8dcWof Qv7fHJTpMET5GEHriFIrK8 WztE2qAtGr NLYnHVMnM1NhqWAhYYvkX0 88QLpoCdV2JZOqqyPiA6To VBSvpBrtLpB7r9G0Ou9AST YiJK70REI2 pVQ7QE45EW68N2BhEujnvR FibGU+PHRhYmxlIHdpZHRo IVznLVUiOvVewOqwIL9eWa 9yZGVyLWNv yWlktPCxKlZad1lpVGGvHK tlRS5bbAmpL7QppSC9NESb r9w8Xd62R45pT4TnhXF+PG RmgGA7dKU3 gL0sPdBkUiZ9XGtrV552Ed DuuKOvZdvut8ljt8mceXn3 OqM9RZVeytKcuCutPNJ2o6 XbPx62K10a IHdpZHRoPSIxNSUiIHZhbG enkm0zxB4aNs1+PGNvbCB3 tOR5uQ8cVaPrZvS7BOmvT6 49InRvcCIv Qzilq0row3dhvXx8KwUaVU MognAdfXcsMRQ5r2FlCs47 Q5BbeGpvt0CeBlw9bn60dI Ljq2L0hPY0 S0CzXYTbxzvbaDUpzRmcBO 5jEEQfqigmNBTgaK7gGBYe G1q5PqJiEfI7TFqkC3Gzcz U9SIRhrVQd SEjxDQX5A88nx1Y1QBOaPS ZuOPE9iDL9xT6vwPjvdfqr bGVmdDsgdmVydGljYWwtYW bkL108VTXk vTgxHPEtmL5lEHQzwNVdcY eiJV9rGTIgoclgXaHVA6NI ExmgR8RLMRISUAOZAA00HA 99yXNob1V0 aHB4W7IxUROsghtdcqncuA E8PLKbQBBvqG16sXWeRXwf Ay0wz4A4v613IGHxGTEwvZ 21Pu3kaZoc IAUzrEOXyJ6xbrscq2pzlw sjIrZdEOUmCUh6DXc1LSFz tTwoKtWlOPU6HhU9ELX8rJ HjiX8bhWeo blzcdC6wGjl+MDQvMTAvMT e7FGqopRQ+QNCwBYT3pJze KBviVQWwoW2yHHAyS7y0Gt GhJbB2SCal X3BjFGSmzofbXl78bV0aMg AkRgK7MBfwO1FwxpR6TOQq lLEuQKncOYM3J08uo1C9XT MwMDAwMDA7 lJK1kK3bpSopgqryuABgoY mpfxSjjQlcJIhqSWipP857 JHOnqTkfWoM9MGtbRXVnVP 31WI77kFLv h8E9lPZ3A7FnWNWbuqjsfx anzCY3VTVdGSXsnZ37sLCz CKqpWc4lz9P4j514UTQrGD CwbH30Gu2t yWtyQYCdkCHSkB3forszh7 aiyihkLhQjQBExGKw8DWz4 OSVbeTcbIsDvJDC9BdI1PX E9fJIwqE6w lAvpxmctxM3oVln+RkVNQU dWQO04RD06nTFao0Z8sVE7 X0CuBBOeblnhkquliGT3FC WlDMVkqH29 rXIyZZqnKr2hp9J2z408EF GdNBNhjD14Aa5zaTbuFTRp qTLLvG4fjbgbw1ojuqngSp AwMDAwMDt0 ZWi0WNJagPraWtXgYFT7Zt H6TZM3mDNncR8voFkxbzde zK8bOhv+J7R8A3WuFwaqrS I+TS44KQAm GK58fKJpmVOpr7ghzVh3Wv XyANGiWCP0zOprBMnso0Uv WDYnK06naTGsz7S8PFLnmP xhcHNlOyBl fBV5yI0iOJahjaqen1cmtw gcMzdbb7nzkp70aP92X72y IHdpZHRoPSIzMCUiIHZhbG cxdh3uqU3j Ii8+YJAveWK0fIA9cC0oEy ZnQdB6ZDnzO029KsAhwEPh Iqtmd4iib5ynvAz2MmAtJK IgdmFsaWdu ZHY4z8DmJd55Y61yPMooXE VwCZVgJBUkWDLcnYkffy9t iS8bYq5+XK9oo5ehay82gI 48dHI+PHRk PVF8rUvyCIqcPZRvmF3nXM aqRiU3SDAlQcBxpO11uCOx ETzkUo1eeBdplHsaUB2xRP Likidap166 DlUbj3riYPUdhQBnVGpjRH E1R04mr7N7TPMqUFQnSKB6 rON7nQ9ppTrahvvqtGRoxA sgdmVydGlj FTdyXTdbO176YUOneFvrJi VqqYKoD4imzzXPYT9dHppn dGQ+DIJxSIY2eLlgXBweVG AviA3gVXXl D7r2KvXlOiL3QAihL9Crhy G9DINsyPLnHIHbzMOSwD4t rbzei1dzprvuHyJxMOOgQH n0UCk6PHQd xRbjIgDqYHU7QiC7QYW8pF JnqK8vvCdjonyfdR3eMsg+ RklOOjwvdGQ+BNJyOGJ8rP xlPSdwYWRk pW5iGQVjQ3x8HrQrBiE9CW bqZ9UliyP6GWRwfSJdWUDm lZOFtS6okylur7pzycqfMd AwMDAwMDt0 HTb9FZUktFuaMsWyOKC5Hw R0RCY3kNDxbH0xhDdodfkk jV5iFxs+TVJOOjwvdGQ+PH HkLTU1oGnn ZMasPMItkI0gNYYiA3i2Qb XiNqZ4ENivO0XfulE2XTEk rMZlTNPhjQVUrK1rnhfmz9 xvcjogIzAw DGDmNCs3QEo4URLlrTscXg XzOBH0YmX0PMX0iSGepS0p eQuzyoqnaA5tRzj+UGF5ZX X2ER72XD71 L8FwWtpgrOHyuAI+PHRhYm xlIHdpZHRoPScxMDAlJyBz vElwMV5sFj4cWJBaVXUmdE xhcHNlOiBj b2x (more content not included)... Normal [facility] ED Clinical Summaryon 2020 ED Clinical Summary [facility] ? Urgent Care [address] [place] [id number] Clinical Summary PERSON INFORMATION Name: GABBY COREAS Age: 35 Years Sex: FEMALE : 1985 MRN: Acct#: Visit Reason: Eye problem; UC - Eye Pain; LT EYE IRRITATION Arrival: 05/14/2021 14:57:24 Discharge: 05/14/2021 16:10:00 LOS: 000 01:13 Check In: 05/14/2021 14:57:24 Checkout: 05/14/2021 16:10:00 Address: [address] [place] [address] [address] [facility] [address] PCP: Nancy Sterling PROVIDER INFORMATION Provider Role [...] Follow-Up: With: Address: When: ROSHAN SOTOMAYOR [address] [place] [address] [employer] (1) Within 1 to 2 days Comments: Call Dr. Sotomayor's office to make a follow-up appointment in the next 1 to 2 days. With: Address: When: Nancy Sterling [address] [facility] [address] [place] [address] [employer] (1) Within 2 to 4 days Comments: Discharge diagnosis of bacterial conjunctivitis, infection of the lacrimal duct. There is no foreign body seen. Weldon lamp negative for corneal abrasions Begin Antibiotic eyedrops of tobramycin to left eye as directed Begin Keflex 500 mg every 8 hours neck 7 days. Off work for today. Apply warm compresses. Without fail follow-up with eyeglass inspector. DIAGNOSIS: Acute bacterial conjunctivitis of left eye; Decreased visual acuity; Discharge of eye, left; Infection of left lacrimal duct; Left eye pain; Pain and swelling of lower eyelid of left eye Patient Understands: Yes - Patient/family/caregiv er verbalizes understanding of instructions given Comment: [facility] ED Patient Summaryon 021 ED Patient Summary [facility] ? Urgent Care [address] [place] [address] PATIENT DISCHARGE INSTRUCTIONS Patient Information Name: GABBY COREAS Age: 35 Years Date of : 1985 Reason For Visit: Eye problem; UC - Eye Pain; LT EYE IRRITATION Arrival Time: 05/14/2021 14:57:24 Primary Care Physician: Nancy Sterling Attending Physician: Jose Mistry Comment: Patient Education With: Address: When: ROSHAN SOTOMAYOR [address] [place] [address] Business (1) Within 1 to 2 days Comments: Call Dr. Sotomayor's office to make a follow-up appointment in the next 1 to 2 days. With: Address: When: Nancy Sterling [address] [facility], [address] [place] [address] Business (1) Within 2 to 4 days Comments: Discharge diagnosis of bacterial conjunctivitis, infection of the lacrimal duct. There is no foreign body seen. Weldon lamp negative for corneal abrasions Begin Antibiotic eyedrops of tobramycin to left eye as directed Begin Keflex 500 mg every 8 hours neck 7 days. Off work for today. Apply warm compresses. Without fail follow-up with eyeglass inspector. Bacterial Conjunctivitis, Adult Bacterial conjunctivitis is an [...] to feel better. ? Take or apply [id number] and prescription medicines only as told by [...] you grover (more content not included)... Normal [facility] Eye Cultureon 05-14-2021 Eye Culture Light growth of Staphylococcus epidermidis Normal skin deborah isolated No pathogens isolated Rare epithelial cells 1+ White Blood Cells No organisms seen. Normal [facility] Comment on above: Performed By: #### [id number] #### [facility] (DEFAULT) [address] [place] [address] Urgent Care Note- Provideron 05-14-2021 Urgent Care [...] glaucoma. She does not have an active eyeglass inspector. ALL: NKDA Social: Nonsmoker. No Etoh. Lives in [place] Review of Systems Constitutional symptoms: No fever, [...] irritation a (more content not included)... Normal [facility] Urgent Care [place] 021 Urgent Care Record [facility] ? Urgent Care [address] [place] [address] PATIENT DISCHARGE INSTRUCTIONS Patient Information Name: GABBY [...] Discharge of eye, left (H57.89) Eye problem ([id number]) Infection of left lacrimal duct (H04.302) Left eye pain (H57.12) Pain and swelling of lower eyelid of left eye (H02.89) UC - Eye Pain ([id number]) If you received any narcotics, sedation, or [...] legal documents With: Address: When: ROSHAN SOTOMAYOR [address] [place], [place] [id number] [facility] (1) Within 1 to 2 days Comments: Call Dr. Sotomayor's office to make a follow-up appointment in the next 1 to 2 days. With: Address: When: Nancy Sterling [address] [place] [address] [address] [place] [address] [facility] (1) Within 2 to 4 days Comments: Discharge diagnosis of bacterial conjunctivitis, infection of the lacrimal duct. There is no foreign body seen. Weldon lamp negative for corneal abrasions Begin Antibiotic eyedrops of tobramycin to left eye as directed Begin Keflex 500 mg every 8 hours neck 7 days. Off work for today. Apply warm compresses. Without fail follow-up with eyeglass inspector. Medication Information: The exam and treatment you received today in the [facility] were for an urgent problem and are not intended as complete care. It is important for you to follow up with a doctor, nurse practitioner, or physician?s produce assistant for ongoing care. If your symptoms [...] so we can reach you if necessary. [facility] Care has provided you with a complete list of medications post discharge. Please inform your food writer/provider of your visit and for further instruction on these medications. Any specific questions regarding your chronic medications and dosages should be discussed with your primary care physician(s) and/or pharmacist. New Medications [facility], [address] [place] [address] [phone], [phone] cephalexin (Keflex 500 mg oral capsule) 1 [...] Items han (more content not included)... Normal [facility] Basic Metabolic Panelon 09-25 Calcium [Mass/Vol] 8.9 mg/dL Normal 8.2-10.2 [facility] Comment on above: Performed By: #### C BC, BMP #### [facility] [address] Chloride [Moles/Vol] 104 mmol/L Normal 95-114 [facility] Comment on above: Performed By: #### C BC, BMP #### [facility] [address] CO2 [Moles/Vol] 19.7 mmol/L Low 22.0-30.0 [facility] Comment on above: Performed By: #### C BC, BMP #### [address] Creatinine [Mass/Vol] 0.70 mg/dL Normal 0.44-1.03 [facility] Comment on above: Performed By: #### C BC, BMP #### [place] [address] [place] Creatinine Clr Calc Pharmacy 125.80 [facility] Comment on above: Result Comment: PERF ORMED BY: [place] [address] PATHOLOGIST [employer] MELVIN MAI M.D. Performed By: #### C BC, BMP #### [address] Estimated GFR ( Sharon > 60 [facility] Comment on above: Result Comment: GFR estimated reference range: According to KDOQI guidelines, <60 ml/min/1.73m2 is sufficient to diagnose a patient with chronic kidney disease. Performed By: #### C BC, BMP #### [place] [address] [place] Estimated GFR (Non- Am > 60 [facility] Comment on above: Performed By: #### C BC, BMP #### [place] [address] [place] Glucose [Mass/Vol] 97 mg/dL Normal 70-100 [facility] Comment on above: Result Comment: [facility] Glucose Reference Range is dependent on time and content of last meal. Glucose of more than 200 mg/dL in a nonstressed, ambulatory subject supports the diagnosis of Diabetes Mellitus. ADA recommended reference range Performed By: #### C BC, BMP #### [facility] [address] Potassium [Moles/Vol] 4.0 mmol/L Normal 3.5-5.1 [facility] Comment on above: Performed By: #### C BC, BMP #### [facility] [address] Sodium [Moles/Vol] 134 mmol/L Low 136-146 [facility] Comment on above: Performed By: #### C BC, BMP #### [facility] [address] Urea nitrogen [Mass/Vol] 10 mg/dL Normal 9-23 [facility] Comment on above: Performed By: #### C BC, BMP #### [address] Complete Blood Count Auto Di ffon 10-19-2020 Basophils (Bld) [#/Vol] 0.1 10*3/uL Normal 0.0-0.2 [facility] Comment on above: Result Comment: PERF ORMED BY: [place] [address] PATHOLOGIST [employer] MELVIN MAI M.D. Performed By: #### C BC, BMP #### [place] [address] [place] Basophils/100 WBC (Bld) 0.8 % Normal . [facility] Comment on above: Performed By: #### C BC, BMP #### [facility] [address] Eosinophils (Bld) [#/Vol] 0.1 10*3/uL Normal 0.0-0.45 [facility] Comment on above: Performed By: #### C BC, BMP #### [facility] [address] [place] [address] [place] Eosinophils/100 WBC (Bld) 1.3 % Normal . [facility] Comment on above: Performed By: #### C BC, BMP #### [facility] [address] Erythrocyte distribution width (RBC) [Ratio] 14.5 % Normal 11.9-15.3 [facility] Comment on above: Performed By: #### C BC, BMP #### [address] Hematocrit (Bld) [Volume fraction] 34.1 % Normal 34.0-46.4 [facility] Comment on above: Performed By: #### C BC, BMP #### [address] Hemoglobin (Bld) [Mass/Vol] 11.9 g/dL Normal 11.8-15.4 [facility] Comment on above: Performed By: #### C BC, BMP #### [address] Lymphocytes (Bld) [#/Vol] 2.5 10*3/uL Normal 1.00-4.8 [facility] Comment on above: Performed By: #### C BC, BMP #### [address] Lymphocytes/100 WBC (Bld) 34.7 % Normal . [facility] Comment on above: Performed By: #### C BC, BMP #### [place] [address] [place] MCH (RBC) [Entitic mass] 29.3 pg Normal 24.7-34.3 [facility] Comment on above: Performed By: #### C BC, BMP #### [address] MCV (RBC) [Entitic vol] 83.8 fL Normal 80-100 [facility] Comment on above: Performed By: #### C BC, BMP #### [address] [place] [address] [place] Mean Corpuscular HGB Conc 34.9 g/dL Normal 32.0-35.0 [facility] Comment on above: Performed By: #### C BC, BMP #### [facility] [address] [place] [address] [place] Monocytes (Bld) [#/Vol] 0.4 10*3/uL Normal 0.0-0.8 [facility] Comment on above: Performed By: #### C BC, BMP #### [place] [address] [place] Monocytes/100 WBC (Bld) 4.9 % Normal . [facility] Comment on above: Performed By: #### C JUDD, BMP #### [address] Neutrophils (Bld) [#/Vol] 4.2 10*3/uL Normal 1.8-7.7 [facility] Comment on above: Performed By: #### C JUDD, BMP #### [place] [address] [place] Neutrophils/100 WBC (Bld) 58.3 % Normal . [facility] Comment on above: Performed By: #### C JUDD, BMP #### [place] [address] [place] Nucleated RBC/100 WBC (Bld) [Ratio] 0.1 % Normal 0-0.5 [facility] Comment on above: Performed By: #### C BC, BMP #### [place] [address] [place] Platelet mean volume (Bld) [Entitic vol] 8.6 fL Normal 6.3-10.7 [facility] Comment on above: Performed By: #### C BC, BMP #### [place] [address] [place] Platelets (Bld) [#/Vol] 298 10*3/uL Normal 150-450 [facility] Comment on above: Performed By: #### C BC, BMP #### [address] [address] [place] RBC (Bld) [#/Vol] 4.06 10*6/uL Normal 3.60-5.00 [facility] Comment on above: Performed By: #### C BC, BMP #### [facility] [address] WBC (Bld) [#/Vol] 7.2 10*3/uL Normal 4.5-11.0 [facility] Comment on above: Performed By: #### C BC, BMP #### [facility] [address] [place] [address] [place] Dipstick and Microscopicon 0 10-19-2020 Appearance (U) Clear Normal Clear [facility] Comment on above: Order Comment: Name Collection Type:: Clean-Voided Midstream Performed By: #### U HCG, ADDONUAPLUS #### [facility] [address] [place] [address] Bacteria,Urine None Seen Normal None Seen [facility] Comment on above: Order Comment: Name Collection Type:: Clean-Voided Midstream Performed By: #### U HCG, ADDONUAPLUS #### [facility] [address] [place] [address] Bilirubin,Urine Negative Normal Negative [facility] Comment on above: Order Comment: Name Collection Type:: Clean-Voided Midstream Performed By: #### U HCG, ADDONUAPLUS #### [facility] [address] [place] [address] [place] Color (U) Yellow Normal Yellow [facility] Comment on above: Order Comment: Name Collection Type:: Clean-Voided Midstream Performed By: #### U HCG, ADDONUAPLUS #### [facility] [address] [place] [address] [place] Glucose Ql (U) Normal Normal Normal [facility] Comment on above: Order Comment: Name Collection Type:: Clean-Voided Midstream Performed By: #### U HCG, ADDONUAPLUS #### [facility] [address] [place] [address] [place] Hyaline Casts,Urine 0-8 Normal 0-8 [facility] Comment on above: Order Comment: Name Collection Type:: Clean-Voided Midstream Performed By: #### U HCG, ADDONUAPLUS #### [facility] [address] [place] [address] Ketones Ql (U) Negative Normal Negative [facility] Comment on above: Order Comment: Name Collection Type:: Clean-Voided Midstream Performed By: #### U HCG, ADDONUAPLUS #### [facility] [address] [place] [address] Leukocyte esterase Test strip Ql (U) 1+ High Negative [facility] Comment on above: Order Comment: Name Collection Type:: Clean-Voided Midstream Performed By: #### U HCG, ADDONUAPLUS #### [address] Nitrite,Urine Negative Normal Negative [facility] Comment on above: Order Comment: Name Collection Type:: Clean-Voided Midstream Performed By: #### U HCG, ADDONUAPLUS #### [facility] [address] [place] [address] Occult Blood,Urine Negative Normal Negative [facility] Comment on above: Order Comment: Name Collection Type:: Clean-Voided Midstream Performed By: #### U HCG, ADDONUAPLUS #### [facility] [address] [place] [address] pH (U) 5.5 [pH] Normal 5.0-9.0 [facility] Comment on above: Order Comment: Name Collection Type:: Clean-Voided Midstream Performed By: #### U HCG, ADDONUAPLUS #### [facility] [address] [place] [address] [place] Protein,Urine Negative Normal Negative [facility] Comment on above: Order Comment: Name Collection Type:: Clean-Voided Midstream Performed By: #### U HCG, ADDONUAPLUS #### [facility] [address] [place] [address] [place] RBC LM.HPF (Urine sed) [#/Area] 0 /[HPF] Normal 0-4 [facility] Comment on above: Order Comment: Name Collection Type:: Clean-Voided Midstream Performed By: #### U HCG, ADDONUAPLUS #### [facility] [address] [place] [address] Specificy [place],Urine 1.011 Normal 1.001-1.030 [facility] Comment on above: Order Comment: Name Collection Type:: Clean-Voided Midstream Performed By: #### U HCG, ADDONUAPLUS #### [address] Squamous Epithelial Cell,Urine 5-9 High 0-2 [facility] Comment on above: Order Comment: Name Collection Type:: Clean-Voided Midstream Performed By: #### U HCG, ADDONUAPLUS #### [address] Urobilinogen,Urine Normal Normal Normal [facility] Comment on above: Order Comment: Name Collection Type:: Clean-Voided Midstream Performed By: #### U HCG, ADDONUAPLUS #### [address] WBC,Urine 3-4 Normal 0-4 [facility] Comment on above: Order Comment: Name Collection Type:: Clean-Voided Midstream Performed By: #### U HCG, ADDONUAPLUS #### [address] HCG,Urineon 10-19-2020 Beta HCG ( test) Ql (U) Negative Normal [facility] Comment on above: Order Comment: Name Collection Type:: Clean-Voided Midstream Result Comment: PERF ORMED BY: [place] [address] PATHOLOGIST [employer] MELVIN MAI M.D. Performed By: #### U HCG, ADDONUAPLUS #### [address] PROGRESSon 02-22-2017 PROGRESS HNO ID: [id number]: Blanca Delcidervice: (none)Author Type: PhysicianType: Progress NotesFiled: 02/22/2017 11:31 AMNote Text:DATE OF SERVICE: 02/18/2017PROBLEM: Gabby Coreas presents for postop visit.SURGERY AND DATE: 02/05/2017Laparoscopic right salpingo-[id number] and left ovarian cystectomyPATHOLOGY:LU[facility] TALAMANT[facility] DIAGNOSIS1. Right [...] lb 3.2 oz) LMP 01/19/2017 BMI 40.81 kg/r5GDGJO: Normocephalic, atraumatic, mucus membranes moist and no [...] I advised her to continue her routine informatica mdm developer exam and cervical screening4. I advised her to call my office with any issue or concern especially ifrelated to the surgeryBlanca Morton MD, MPHCC:Isaac Carrasco PA (PCP) Normal [facility] CNOVon 02-18-2017 CNOV Office Visit (GYNOSA) GABBY COREAS ([id number]) 1985 FDate Time Provider Department02/18/17 3:20 PM [...] for postop visit.SURGERY ANDamp; DATE: 02/05/2017Laparoscopic right salpingo-[id number] and left ovarian cystectomyPATHOLOGY:FI ALBIN DIAGNOSIS1. Right [...] (223 lb 3.2 oz) LMP 01/19/2017 BMI40.81 kg/y3EHQVR: Normocephalic, atraumatic, mucus membranes moist and no [...] I advised her to continue her routine informatica mdm developer exam and cervical screening4. I advised her to call my office with any issue or concern especially ifrelated to the surgeryBlanca Morton MD, MPHCC:Storm Thurman, LISSETT Clark (PCP)Referring Provider: BLANCA MORTON [[id number]]Allergies As of Date: 02/18/2017(No Known Allergies)Date Reviewed: [...] some discomfort.Follow-up and Disposition History RecordedEncounter Number: [id number] Status:Closed by BLANCA MORTON MD on 02/22/17 Normal [facility] Vital Signs Date Time Vital Sign Value Performing Clinician Facility 08-28-2022 17:45-0500 Body height 157.48 cm Paige Biggs Other [facility] 08-28-2022 17:45-0500 Body mass index (BMI) [Ratio] 41.7 kg/m2 Paige Biggs Other [facility] 08-28-2022 17:45-0500 Body temperature 98.1 [degF] Paige Biggs Other [facility] 08-28-2022 17:45-0500 Body weight 103.42 kg Paige Biggs Other [facility] 08-28-2022 17:45-0500 Diastolic blood pressure 75 mm[Hg] Paige Jiménezault Other [facility] 08-28-2022 17:45-0500 Respiratory rate 18 /min Paige Biggs Other [facility] 08-28-2022 17:45-0500 SaO2% (BldA) [Mass fraction] 99 % Paige Jiménezault Other [facility] 08-28-2022 17:45-0500 Systolic blood pressure 129 mm[Hg] Paige Jiménezault Other [facility] 08-11-2022 11:15-0500 Body height 157.48 cm Ignacia Acosta Other [facility] Other 08-11-2022 11:15-0500 Body mass index (BMI) [Ratio] 41.7 kg/m2 Ignacia Acosta Other [facility] Other 08-11-2022 11:15-0500 Body temperature 98 [degF] Ignacia Acosta Other [facility] Other 08-11-2022 11:15-0500 Body weight 103.42 kg Ignacia Acosta Other [facility] 08-11-2022 11:15-0500 Respiratory rate 18 /min Ignacia Acosta Other [facility] Other 08-11-2022 11:15-0500 SaO2% (BldA) [Mass fraction] 98 % Ignacia Acosta Other [facility] Other Encounters Encounter Date Encounter Type Care Provider Facility Start: 05-05-2024 End: 05-05-2024 ambulatory TIM CRAWFORD Not Available Start: 10-28-2022 End: 10-29-2022 ambulatory IGNACIA RAY Facility: Start: 08-28-2022 End: 08-28-2022 ambulatory Paige Biggs Other [facility] Start: 08-28-2022 Office outpatient visit 15 minutes Paige Biggs [facility] Start: 08-11-2022 End: 08-11-2022 ambulatory Ignacia Karla Other [facility] Start: 08-11-2022 Office outpatient ne w 20 minutes Ignacia Acosta [facility] Start: 02-18-2017 End: 02-18-2017 Ambulatory BLANCA [facility] Start: 02-05-2017 End: 02-06-2017 Ambulatory [facility] Payers Date Payer Category Payer Unknown [id number] 1985 Unknown [id number] 1960 Private Health Insurance [id number] Social History Date Type Detail Facility Sex Assigned At [facility] Other Evaluation note 08-28-2022 Note Date & [...] weeks for the cough to go away [facility] Other Evaluation note 08-11-2022 Note Date & [...] days. Jul, Acute cough (ICD-10 - R05.1) [facility] Other Clinical Note 05-14-2021 Note Date & [...] to feel better. ? Take or apply [id number] and prescription medicines only as told by [...] provider. Document Revised: 11/29/2019 Document Reviewed: 03/16/2019 NPS Patient Education ? 2019 [employer] [facility] Summary Purpose Family History No Family [...] section and content) DATE CREATED AUTHOR 02/17/2018 [facility] DATE CREATED AUTHOR AUTHOR'S ORGANIZ ATION 02/17/2018 [facility] DATE CREATED AUTHOR AUTHOR'S ORGANIZ ATION 05/25/2021 [facility] DATE CREATED AUTHOR AUTHOR'S ORGANIZ ATION 09/08/2021 [facility] DATE CREATED AUTHOR AUTHOR'S ORGANIZ ATION [facility]/30/2022 [facility] DATE CREATED AUTHOR AUTHOR'S ORGANIZ ATION 05/07/2024 [facility] EPIC REASON FOR VISIT (unrecogniz [...] BE BASED ON THE PRIMARY CLINICAL RECORDS. [facility] [employer] [facility]. provides no warranty or guarantee of the accuracy or completeness of information in this document.
== END 2024-07-01 08:09 | disposition home or self-care (01) ==
LOC: VC 08:08
PROVIDERS: PCP Radiology Diagnostic Radiology; Visit Provider Radiology Diagnostic Radiology
DX: I83.813 Varicose veins of bilateral lower extremities with pain (principal)
CPT/HCPCS: G0463

== ENCOUNTER 2024-08-30 20:46 | Emergency (ER) | payer OTHER, SELFPAY ==
[2024-08-30 20:49] VITALS: BP 141/103; PULSE 118; TEMP 36.7; O2SAT 95; BMI 42.1
--- NOTE | 2024-08-30 21:05 | US_ITS ---
The [address] [address] Patient Name: LEVI SY MRN: [id number] date: 1985 Sex: F Assigned Patient Location: ER Current Patient Location: ER Accession/Order Number: [id number] Exam Date: 08/30/2024 21:15 Report Date: 08/30/2024 22:14 At the request of: TEENA ORELLANA Procedure: US venous doppler LE LT EXAM: US venous doppler LE LT HISTORY: Redness pain and swelling COMPARISON: 05/31/2024 TECHNIQUE: Grayscale sonography of the left lower extremity was performed from the inguinal canal to popliteal fossa utilizing a venous compression technique. Duplex scans of the common femoral vein were performed. FINDINGS: There is normal compression the common femoral, superficial femoral and popliteal veins. There is no evidence of deep venous thrombosis. Prior heat-induced thrombosis of the greater saphenous vein with areas of noncompressibility noted from the knee to the ankle. US/US venous doppler LE LT IMPRESSION: No evidence of deep vein thrombosis from the common femoral through popliteal veins of the left lower extremity. Prior heat-induced thrombosis of the greater saphenous vein with areas of noncompressibility noted from the knee to the ankle. Electronically authenticated by: PHILOMENA SINGH Date: 08/30/2024 22:14
--- NOTE | 2024-08-30 21:11 | ED.EXTPRO1 ---
HPI - Extremity Problem General Chief complaint: Extremity Problem, Nontraumatic Stated complaint: LE PAIN Time Seen by Provider: 08/30/24 20:59 Source: patient Mode of arrival: walk-in Limitations: no limitations History of Present Illness HPI Narrative: 38-year-old female presents to the ED for an area of erythema on her left leg. It developed today and there was no injury or unusual activity. She is worried about a blood clot. She had a vein procedure in that same leg in the remote past. She has never had a blood clot. No chest pain or cough or shortness of breath. Related Data Previous Rx's ?Medication ?Instructions ?Recorded cephalexin 500 mg capsule 500 mg PO TID 7 days #21 caps 08/30/24 Allergies Allergy/AdvReac Type Severity Reaction Status Date / Time No Known Drug Allergies Allergy Verified 08/30/24 20:54 Review of Systems ROS Narrative A ten point review of systems is negative except as noted above. [facility] Medical History (Updated 08/30/24 @ 22:25 by Terry Eaton MD) Phlebitis and thrombophlebitis of superficial vessels of left lower extremity ?I80.02 - Phlebitis and thrombophlebitis of superficial vessels of left lower extremity (ICD-10) Varicose veins of bilateral lower extremities with pain ?I83.813 - Varicose veins of bilateral lower extremities with pain (ICD-10) Bilateral leg edema ?R60.0 - Localized edema (ICD-10) Osteoarthritis ?M19.90 - Unspecified osteoarthritis, unspecified site (ICD-10) Calcified lymph nodes ?I89.8 - Other specified noninfective disorders of lymphatic vessels and lymph nodes (ICD-10) Calcified granuloma of lung ?J84.10 - Pulmonary fibrosis, unspecified (ICD-10) Obesities, morbid ?E66.01 - Morbid (severe) obesity due to excess calories (ICD-10) Surgical History (Updated 05/23/24 @ 11:12 by Jason Costa) Status post laser ablation of incompetent vein ?Z98.890 - Other specified postprocedural states (ICD-10) H/O oophorectomy H/O dilation and curettage ?Z98.890 - Other specified postprocedural states (ICD-10) H/O laparoscopy ?Z98.890 - Other specified postprocedural states (ICD-10) Family History (Updated 04/20/24 @ 13:36 by Jason Costa) Father Family history of diabetes mellitus Other Lupus Social History (Updated 04/26/24 @ 08:42 by Jason Costa) Within the past year, how often did you have a drink containing alcohol: 2-4 times a month Smoking status: Never smoker Non-prescribed substance use: denies use Little interest or pleasure in doing things: not at all Feeling down, depressed, or hopeless: not at all Exam Narrative Exam Narrative: Nurses note and vital signs reviewed and patient is not hypoxic. General: The patient appears well and in no apparent distress. Patient is resting comfortably on cart. Skin: Warm, dry, no pallor noted. There is no rash noted. Head: Normocephalic, atraumatic Eye: Normal conjunctiva, no drainage Ears, Nose, Mouth, and Throat: oral mucosa is moist. Nares patent. Cardiovascular: Regular Rate and Rhythm Respiratory: Patient is in no distress, no accessory muscle use, lungs are clear to auscultation, no wheezing, rales or rhonchi Back: non-tender GI: Soft and nontender Musculoskeletal: There is an area of erythema which is mildly tender on the left anterior medial aspect of her lower leg. There is no open area or drainage or lymphangitis. Neurological: A&O, normal speech Psychiatric: Cooperative Constitutional Vital Signs, click to edit/add: Last Vital Signs Temp 98.1 F 08/30/24 20:49 Pulse 118 H 08/30/24 20:49 Resp 16 08/30/24 20:49 BP 141/103 H 08/30/24 20:49 Pulse Ox 95 08/30/24 20:49 O2 Del Method Room Air 08/30/24 20:49 Course Vital Signs Vital signs: Vital Signs Temperature 98.1 F 08/30/24 20:49 Pulse Rate 118 H 08/30/24 20:49 Respiratory Rate 16 08/30/24 20:49 Blood Pressure 141/103 H 08/30/24 20:49 Pulse Oximetry 95 08/30/24 20:49 Oxygen Delivery Method Room Air 08/30/24 20:49 Temperature 98.1 F 08/30/24 20:49 Pulse Rate 118 H 08/30/24 20:49 Respiratory Rate 16 08/30/24 20:49 Blood Pressure 141/103 H 08/30/24 20:49 Pulse Oximetry 95 08/30/24 20:49 Oxygen Delivery Method Room Air 08/30/24 20:49 MDM - Extremity (Nontraumatic) MDM Narrative Medical decision making narrative: No evidence of DVT. I suspect this may be cellulitis and she is prescribed Keflex and given her first dose here. Treatment diagnosis and follow-up were discussed with the patient. Differential Diagnosis Differential diagnosis: Likely other (DVT, superficial thrombophlebitis, cellulitis) Imaging Data Left leg venous Doppler: Radiologist's impression: ITS Impressions Venous Doppler Study 08/30/24 21:05 IMPRESSION: No evidence of deep vein thrombosis from the common femoral through popliteal veins of the left lower extremity. Prior heat-induced thrombosis of the greater saphenous vein with areas of noncompressibility noted from the knee to the ankle. Electronically authenticated by: PHILOMENA SINGH Date: 08/30/2024 22:14 Discharge Plan Discharge Chief Complaint: Extremity Problem, Nontraumatic Clinical Impression: Cellulitis Patient Disposition: Home, Self-Care Time of Disposition Decision: 22:25 Condition: Good Mode of Transportation: Private Vehicle Prescriptions / Home Meds: New cephalexin 500 mg capsule 500 mg PO TID 7 Days Qty: 21 0RF Print Language: Korean Instructions: Cellulitis (ED) Referrals: Kevon Rodas MD [Primary Care Provider] - 1 week
--- NOTE | 2024-08-30 21:50 | PC.NURSE ---
Pt received ultrasound on left leg. Currently awaiting results of test. Pt spouse remains at bedside. Pt and spouse have no current needs at this time.
[2024-08-30] MEDS: CEPHALEXIN 500 MG CAPSULE PO (22:35)
[2024-08-30 22:41] VITALS: PULSE 100; O2SAT 99
== END 2024-08-30 22:40 | disposition home or self-care (01) ==
PROVIDERS: Emergency Provider Emergency Medicine; PCP Radiology Diagnostic Radiology
DX: L03.116 Cellulitis of left lower limb (principal)
CPT/HCPCS: 93971; 99284

== ENCOUNTER 2024-11-22 07:56 | Outpatient (OUT) | payer OTHER, SELFPAY ==
--- OUTSIDE RECORDS SUMMARY | 2024-11-22 08:01 | XMS_ITS | CCD ---
Author Organization [facility] Team Providers Care Marketing Analyst Name Role Phone RICKBERTORANDIBLANCA Unavailable Unavailable BLANCA MORTON Unavailable Unavailable Ignacia Acosta Unavailable Paige Biggs Unavailable IGNACIA RAY Admitting Unavailable IGNACIA RAY Attending Unavailable IGNACIA RAY Primary Care Unavailable IGNACIA RAY Consulting Unavailable RAAD HUGHES Consulting Unavailable Jenny MOORE, Ignacia Primary Care Provider [phone] REHANA VILLANUEVA Attending Unavailable TIM MOON Attending Unavailable Medications Current Medications Medication Drug Class(es) Dates Sig (Normalized) Sig (Original) [id number] 200 actuat albuterol 0.09 mg/actuat metered dose [...] exposure to other viral communicable diseases] Episodic Other nervous system disorders (1 source) Paresthesia; Translations: [Paresthesia of skin] 05-05-2024 Episodic Pneumonia (except that caused by tuberculosis [...] Test Name Value Interpretation Reference Range Facility EMG 2 Extremitieson 05-05-20 24 [facility] NVC 9-10 Nerveson 05-05-2024 Normal [facility] XR CHEST 2 Von 10-28-2022 XR CHEST [...] RAAD HUGHES Date: 2022-10-28 17:27 Normal [facility] COVID/FLU RT-PCRon 2 SARS-CoV-2 (COVID-19) RNA TOBY+probe Ql (Unsp spec) Positive [email or web address] Other COVID/FLU RT-PCR Negative [employer] Other Coding Summaryon 05-17-2021 Coding Summary [employer] 64 PsitlipkOPw6pWx+PGhlYW Q+ZC4GGQNjO35igNMifL7Y U2xKJD8RSVSDORXEZP1MMV 2wkUX2UAhyY8LcatYj BmbbmEQcFW32KMp2CNK0fP hnXWnnsC3acCCjI1f9QyZz KH34bG76MLrbEXSmWqG1Du ZpbjsgbWFy T1ktBbTspBPmXsz+PHRhYm xlIHdpZHRoPScxMDAlJyBz tPbtCM3tCl4fYMLoYFZvsB xhcHNlOiBj g0uqNLSyMChxGV3epQejV6 VktYA0INQuq4e0Lj56oDF+ HFRmOVA5iQxgFCugy993Ng Rys7vvXJH6 yWNdWYjdJIA0J59gi5K4OQ XbXUXgOEA3rOQ3zF3bnMcq jtjpJ4TydCKwIbE9UYO3nQ FciL4kaHgl qsriiD0fGvw+S10IEV8LTF ELPU9HXza3R0UbIzrgrCS+ QV70WBHeDL95fMLolFPgl9 qplAo8VuGg GPJsZJI2eElbWNcdi4PiXO EbI35vjZBfv6T6NQBtcMtz jZMwZrUrpWU9mY3uUFlwgp fsw2aksxmz Lbqos7bvke64vV58B76yFB gyXPNyVIR0VWPeRORizXwv sf5bqN7lAa9+MUcsw7qsy2 dyaUp4ZyAx RUFhewHpwWmkZUD8e3XeKz 57L8GtgWgdv4QuRuf5hl49 gKEba5T1eDO7KXtcPUGduL 6qWCknBsI1 MESzDwKuvW50yABtNPjwXq 7mwWrelRzbCM7sMTIztnwb LYNmrR8uKVZalDWtuHyoZL 4wNTBpbjtm k507FvReJVL9AUJdkSOaR1 RdhK0sMmRyAQLnRQYbP8Nr uQUjCUgeP519PJfaNcH2XJ ArisCoK0Ln TFTviLpxAfP5p6Q9Kg6Ib5 KxotwfBZD7QVtkPSX7ScF1 AgLqQrA7X8UxBrp8YTRipU urMO7qI3Qz JYPjibwewhaloUP4ITToET UubL51iQChTJmzCd5df4J2 c063UXYgYKTezO89Yf3amC ogMTBwdCBU qP7ypevuy4gpxamaMuNjCP MjERp1YWo7KRCrhBemSeVi UJX7DmS2QEV3mUJcoE5omC nrgvziwD3f Oyc+H32stI3uZFP4EGL8qr nbAHJrcxHkPA13MS63N2Uk PjwvdGFibGU+PGRpdiBzdH mxHI3jGnJw l2sth0LoCPwkY9EzMXVqGB qtQxq7JPYeOQP3fOD6lN8a SIEwUHncr0S2bIW7T6Pmsh Gspm8je8hh VNIvQFtfG13iqAGwd4I8ZS TnhOS5EPPbeZkcYsVfiX19 Oyc+AFJutKvxu7UzEtjdn9 wka2lxxJn7 AmTcHTFywlGaiJwzNNI0e5 NzGe12J36yRPrhBDHuEIWc JMLfBUQzpOmmhy4fbG9rWn 8+PGNvbCB3 eLQ0eY6uWIFgFfB2BVonO7 63ZdNueKXeCbljh8stq2ta iRt3EwOxGHJzwdYjiQtmJX V9z0UuJd27 M97gSFkpMEVyGYYnCAWmWP LlvGcmvf8mcB6dSq4+PC9j q0qric16uA70mAG+PHRkIH Z7lGalOHaj UKQjcI6vAYviAdQ7ACCcTt EwlE82mYMuNQizXo1esZos rLjxJQ1kWBNqcmdyw143Ny Gpa6vlMJKw eOErKXjsRMR7D13bl3K6PT EjURMdSDV2tPE2lE0ifPtm bjogbGVmdDsgdmVydGljYW poPDeeG513 IHRvcDsnPlBhdGllbnQgTm HsKQl8V8YxVkk2VGMwaFfd FE8cgVYxDUkfWe9noNhffU atIM1mSMPc unffc497JpDmt0pwFUJsaB DvCFnjGLG9J94ux7T9YZMk BAHqZQS1qRU1mL5dxSoyci ogbGVmdDsg pjGeqWnxQTdfCMszZ152QZ RvcDsnPkJpcnRoIERhdGU6 CD45SQ40pWLpv0T6sOH8W1 BhZGRpbmct mszuuGF8AUCpSVCobO29Dv 7ubAllXu5cDNItEBY9TVEk hOYiW6CdhI0lLjVaGXXnYS OfI0ZhiVIm YIqjF736GSjsUvH1SYTcgj UrA3RgLYDkdKmjZtN7j4L3 Ki4RZ4C0VB99WW00aWKjm0 A8oCP6R0Lm SEBbrscrcmayzBX6CFCdAP MatJ61Rv6djLqaUu5pQKNf KWZ6JYZnjGSlI8OveY1uWz AjMDAwMDAw M3HspBZoTRqiP031VAnlEn Q2IVNmazIyA8ZrKOYyaAat QxT1y4N0Nc1ZUZg5SK12LY 54fDBra0R6 zIF1Q4YuWQFdlfbmyjpvkU C0CUTcVGIcaX02Ev8ksExy Zi0bJQRoCSF9WNBrzEUaM0 RjyT6xYcOy UJEhVFYrK7HlbSJzOFbvR4 83HShyJnS6BTEpnhUwL9Mq SEXgoTfiYnJ3j9I4Vv5QKS BkPS43XST5 eLL3GA57EQ77U1LqQsmocM FibGU+PHRhYmxlIHdpZHRo GQjgFLJzOxUfiGyuMP7zXx 9yZGVyLWNv sXpxpYXiEbShl4rdSJSxGI jmFA2laKcwF7GcvYJ1BZCw g5z1El30M41fJ2RhqSO+PG IqhRG9kFB8 uQ5kWyQpAnM7DWpjQ228Cy MljREgYfpth9lzz5jkuXr5 MmS8LSVcutQqdAomUYJ0i2 QpXs01M95e IHdpZHRoPSIxNSUiIHZhbG dvcx3peH8pTm0+PGNvbCB3 gSM5hW3pEdMcBnC1ZBviO9 49InRvcCIv Bkani8zrc9dgxXd3QhXjTS KkxhPqpIjwTPS0y4BeSh34 A8DcyExaj5PjMaq6zf75yB Ywe4P5dPP2 G7ZcXIXpbkmrhALewEpmQJ 3aMZUopcnbRDKeuM0lZVGy U0u9XiJiEfB8UDrcG3Snor Y0ULIkaDYt YYytGLX1E64bp1A9XZTaHX QsLWF5tGF3cM0ewCkofdrz bGVmdDsgdmVydGljYWwtYW imN875BMQx yTcpFFZbaG0fIELhgEAgaE awCS9rWXApmifkFrKRV1QV YiwgW6GETKPOJBRKKC94FJ 40rLYnh7S8 lMP3B0NhQZUxhrrapkmwmE L3ACZtYKYfsD55gLGuNMil Rb6tk3G6h438XZGpJKHdkG 47Ng0bvEta AWWeaOTBxZ3pxxmqr7dced wsSnMiDCHjHJw1ZFv6RTGh mKekZfHjKQL3DuN6EDZ0dS CugS7oyJqz zxbboS2oDdz+MDQvMTAvMT h0PYjpsRC+JADmVTJ9yHdy HKufLJXobO8eTCGpF0c6Dc PcSrO0KCix Z1TpXUIgugpnEn14cC8xRs NmChC1OGzmE0VhhdJ6TQGu aSIqEJieFHE7T59zs2P6ZD MwMDAwMDA7 cYH9hI4cwZmxoohgcNGxwF qhroSbuCrxFGwaMZitK741 CVUhsOqpHvA8IDidTJGoZH 35OG84bLRn y9A6kSW6L2LeLHRzzvkgqo lhxDI3HZXqLBRztR53lRJh NQirIz7ro3Y0v138NGNwKL ZpjT55Bp8t bUcyQKVuoRXZbA7vqvssc3 mwkbdhUaWmCAMqKDq8NVk7 GBLzjTwgYwCeTBS3BgG1DC V5tLEcdN2o rDjaymkmcL6mXpw+RkVNQU hRNU43JE56lABvd1Y0fRG9 U8UzSGWllfhzkyzlmXC8CQ XeGWUwwK99 iBScOWihPb9zh7Q9m894XX NxPNEjyE99Lo8dkExxZNOd jLOJdU5bbyuyp1czcixwPm AwMDAwMDt0 ZHz9RWGmtOchLkFnPQD1Zm F5KNK6uHYppW2ytHvxsnyz gC4pIcg+T2Z4Q0JiZwzsqX I+LS00SMSo RY43tFAcgMPzw6lnmNr2Rm PlIZHeKOC3hTgyEWyka9Fh LKTrY70hjTWxh6R6SXAsqN xhcHNlOyBl xVN1oX9sNTxcfmsmr9sdmn enWevds0lszw91xA21Z72n IHdpZHRoPSIzMCUiIHZhbG sphi5njZ1a Ii8+CUOnqJR6zTN5nI6jIv MrRcH6NYxbI631UgZycNLj Dqvcy4lzo8dwtLn0CgWvFF IgdmFsaWdu ZJT6f2NfNh28X59yVAxwVE CwSDJdPMGuZAKavGthkq4q xO5zLg4+JJ6bc5xqpn99kH 48dHI+PHRk LMX9cGotRDfqMDQzuU0vPC coJnU1HYSjFuTwuE79qFTd YCetXj7lpXxtfOnbUJ3oKL Mbgajsx684 YwJqq6tdHRFikDEdMOqnQB U0V91zm0D8GDDdQGKeYRQ9 lZC8rG0xqTtymttkoFMrdE sgdmVydGlj SHzxDKhpG790LXKwmWazQq FnlMMjN0rffeSCFT5lGluq dGQ+PEScDYK6mZguOZkxHM PftX7qIANv A3m7LtMzSxF1OXgvC6Qtud K2AXItuZQuKKMqpPSHqG0z ntbjr8fjvajpZsFpADIfXD c1BAt8PCTy iEeuZvFhJFX6AsC2PAX1nQ DgqY6qyFudcstzyS9uOfv+ RklOOjwvdGQ+YGHcQGL8dY xlPSdwYWRk xN5tXWQyQ3y2HtOnEqM2WX izA6ZctdF5CRXvcKWmFWNj aCNOaG2wiqges2pgqloaXz AwMDAwMDt0 FDa8STKwtZiuJjUuNLV6Vj B5SZQ6iJObwF7osFlxltdy fT4mIww+TVJOOjwvdGQ+PH SpJRN0aQii MGeiVVSnbV7pEBTqE3u7Wv RkOyC6DRfeH3IlrhI7BAZf mGWsDTNwrVIDhB5geeeer1 xvcjogIzAw QUZoUIr8MCr1KHQcbJfvBk GoVNP8GtI1MWC1tMVfjZ0o gGbpqvmetL3lIhf+UGF5ZX X1ZP45GI09 V1YdTdmkmPSvdIH+PHRhYm xlIHdpZHRoPScxMDAlJyBz dHzuJJ7pBj2zUVImXOAtjG xhcHNlOiBj b2x (more content not included)... Normal [facility] ED Clinical Summaryon 2020 ED Clinical Summary [facility] [address] [place] [address] Clinical Summary PERSON INFORMATION Name: AGBBY COREAS Age: 35 Years Sex: FEMALE : 1985 MRN: Acct#: Visit Reason: Eye problem; UC - Eye Pain; LT EYE IRRITATION Arrival: 05/14/2021 14:57:24 Discharge: 05/14/2021 16:10:00 LOS: 000 01:13 Check In: 05/14/2021 14:57:24 Checkout: 05/14/2021 16:10:00 Address: [address] [place] [address] [address] [facility] [address] PCP: Nancy Sterling PROVIDER INFORMATION Provider Role Assigned Unassigned Jaydon RN, Priscilla ED Nurse 05/14/2021 15:01:15 Jose Mistry [...] Follow-Up: With: Address: When: ROSHAN SOTOMAYOR [address] [place] [address] Business (1) Within 1 to 2 days Comments: Call Dr. Sotomayor's office to make a follow-up appointment in the next 1 to 2 days. With: Address: When: Nancy Sterling [address] [facility], [address] [place], [place] [address] Business (1) Within 2 to 4 days Comments: Discharge diagnosis of bacterial conjunctivitis, infection of the lacrimal duct. There is no foreign body seen. Weldon lamp negative for corneal abrasions Begin Antibiotic eyedrops of tobramycin to left eye as directed Begin Keflex 500 mg every 8 hours neck 7 days. Off work for today. Apply warm compresses. 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 DIAGNOSIS: Acute bacterial conjunctivitis of left eye; Decreased visual acuity; Discharge of eye, left; Infection of left lacrimal duct; Left eye pain; Pain and swelling of lower eyelid of left eye Patient Understands: Yes - Patient/family/caregiv er verbalizes understanding of instructions given Comment: Normal [facility] ED Patient Summaryon 021 ED Patient Summary [facility] ? Ur[facility] Care [address] [place] [address] PATIENT DISCHARGE INSTRUCTIONS Patient Information Name: GABBY COREAS Age: 35 Years Date of : 1985 Reason For Visit: Eye problem; UC - Eye Pain; LT EYE IRRITATION Arrival Time: 05/14/2021 14:57:24 Primary Care Physician: Nancy Sterling Attending Physician: Jose Mistry Comment: Patient Education With: Address: When: ROSHAN SOTOMAYOR [address] [place] [address] Business (1) Within 1 to 2 days Comments: Call Dr. Sotomayor's office to make a follow-up appointment in the next 1 to 2 days. With: Address: When: Nancy Sterling [address] [facility], [address] [place] [address] Business (1) Within 2 to 4 days Comments: Discharge diagnosis of bacterial conjunctivitis, infection of the lacrimal duct. There is no foreign body seen. Weldon lamp negative for corneal abrasions Begin Antibiotic eyedrops of tobramycin to left eye as directed Begin Keflex 500 mg every 8 hours neck 7 days. Off work for today. Apply warm compresses. 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 Bacterial Conjunctivitis, Adult Bacterial conjunctivitis is an [...] to feel better. ? Take or apply bozd-zpj-teqtcyr and prescription medicines only as told by [...] you grover (more content not included)... Normal [facility] Eye Cultureon 05-14-2021 Eye Culture Light growth of Staphylococcus epidermidis Normal skin deborah isolated No pathogens isolated Rare epithelial cells 1+ White Blood Cells No organisms seen. Normal [facility] Comment on above: Performed By: #### [id number] #### [facility] (DEFAULT) [address] [place] [address] Urgent Care Note- Provideron 05-14-2021 Urgent Care [...] glaucoma. She does not have an active blind eyeletter. ALL: NKDA Social: Nonsmoker. No Etoh. Lives in [place] Review of Systems Constitutional symptoms: No fever, [...] irritation a (more content not included)... Normal [facility] [place] 021 Urgent Care Record [facility] ? Urgent Care [address] [place] [address] PATIENT DISCHARGE INSTRUCTIONS Patient Information Name: GABBY [...] Discharge of eye, left (H57.89) Eye problem ([id number]) Infection of left lacrimal duct (H04.302) Left eye pain (H57.12) Pain and swelling of lower eyelid of left eye (H02.89) UC - Eye Pain ([id number]) If you received any narcotics, sedation, or [...] legal documents With: Address: When: ROSHAN SOTOMAYOR [address] [place] [address] [phone] Business (1) Within 1 to 2 days Comments: Call Dr. Sotomayor's office to make a follow-up appointment in the next 1 to 2 days. With: Address: When: Nancy Sterling [address] [facility], [address] [place] [address] Business (1) Within 2 to 4 days Comments: Discharge diagnosis of bacterial conjunctivitis, infection of the lacrimal duct. There is no foreign body seen. Weldon lamp negative for corneal abrasions Begin Antibiotic eyedrops of tobramycin to left eye as directed Begin Keflex 500 mg every 8 hours neck 7 days. Off work for today. Apply warm compresses. 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 Medication Information: The exam and treatment you received today in the [facility] were for an urgent problem and are not intended as complete care. It is important for you to follow up with a doctor, nurse practitioner, or physician?s insurance underwriting assistant for ongoing care. If your symptoms [...] so we can reach you if necessary. [facility] has provided you with a complete list of medications post discharge. Please inform your tiltrotor crew chief/provider of your visit and for further instruction on these medications. Any specific questions regarding your chronic medications and dosages should be discussed with your primary care physician(s) and/or pharmacist. New Medications [facility], [address] [place] [address] [phone], [phone] cephalexin (Keflex 500 mg oral capsule) 1 [...] Items han (more content not included)... Normal [facility] Basic Metabolic Panelon 09-25 Calcium [Mass/Vol] 8.9 mg/dL Normal 8.2-10.2 [facility] Comment on above: Performed By: #### C BC, BMP #### [address] Chloride [Moles/Vol] 104 mmol/L Normal 95-114 [facility] Comment on above: Performed By: #### C BC, BMP #### [address] CO2 [Moles/Vol] 19.7 mmol/L Low 22.0-30.0 [facility] Comment on above: Performed By: #### C BC, BMP #### [address] Creatinine [Mass/Vol] 0.70 mg/dL Normal 0.44-1.03 [facility] Comment on above: Performed By: #### C BC, BMP #### [place] [address] [place] Creatinine Clr Calc Pharmacy 125.80 [facility] Comment on above: Result Comment: PERF ORMED BY: [place] [address] PATHOLOGIST SPINE SUPERVISOR MELVIN MAI M.D. Performed By: #### C BC, BMP #### [address] Estimated GFR ( Sharon > 60 Normal [facility] Comment on above: Result Comment: GFR estimated reference range: According to KDOQI guidelines, <60 ml/min/1.73m2 is sufficient to diagnose a patient with chronic kidney disease. Performed By: #### C BC, BMP #### [address] Estimated GFR (Non- Am > 60 Normal [facility] Comment on above: Performed By: #### C BC, BMP #### [address] Glucose [Mass/Vol] 97 mg/dL Normal 70-100 [facility] Comment on above: Result Comment: [facility] Glucose Reference Range is dependent on time and content of last meal. Glucose of more than 200 mg/dL in a nonstressed, ambulatory subject supports the diagnosis of Diabetes Mellitus. ADA recommended reference range Performed By: #### C BC, BMP #### [address] Potassium [Moles/Vol] 4.0 mmol/L Normal 3.5-5.1 [facility] Comment on above: Performed By: #### C BC, BMP #### [address] Sodium [Moles/Vol] 134 mmol/L Low 136-146 [facility] Comment on above: Performed By: #### C BC, BMP #### [address] Urea nitrogen [Mass/Vol] 10 mg/dL Normal 9-23 [facility] Comment on above: Performed By: #### C BC, BMP #### [address] Complete Blood Count Auto Di ffon 10-19-2020 Basophils (Bld) [#/Vol] 0.1 10*3/uL Normal 0.0-0.2 [facility] Comment on above: Result Comment: PERF ORMED BY: [place] [address] PATHOLOGIST SPINE SUPERVISOR MELVIN MAI M.D. Performed By: #### C BC, BMP #### [address] Basophils/100 WBC (Bld) 0.8 % Normal . [facility] Comment on above: Performed By: #### C BC, BMP #### [address] Eosinophils (Bld) [#/Vol] 0.1 10*3/uL Normal 0.0-0.45 [facility] Comment on above: Performed By: #### C BC, BMP #### [address] Eosinophils/100 WBC (Bld) 1.3 % Normal . [facility] Comment on above: Performed By: #### C JUDD, BMP #### [address] Erythrocyte distribution width (RBC) [Ratio] 14.5 % Normal 11.9-15.3 [facility] Comment on above: Performed By: #### C BC, BMP #### [address] Hematocrit (Bld) [Volume fraction] 34.1 % Normal 34.0-46.4 [facility] Comment on above: Performed By: #### C BC, BMP #### [address] Hemoglobin (Bld) [Mass/Vol] 11.9 g/dL Normal 11.8-15.4 [facility] Comment on above: Performed By: #### C BC, BMP #### [address] Lymphocytes (Bld) [#/Vol] 2.5 10*3/uL Normal 1.00-4.8 [facility] Comment on above: Performed By: #### C BC, BMP #### [address] Lymphocytes/100 WBC (Bld) 34.7 % Normal . [facility] Comment on above: Performed By: #### C BC, BMP #### [address] MCH (RBC) [Entitic mass] 29.3 pg Normal 24.7-34.3 [facility] Comment on above: Performed By: #### C BC, BMP #### [facility] [address] MCV (RBC) [Entitic vol] 83.8 fL Normal 80-100 [facility] Comment on above: Performed By: #### C BC, BMP #### [facility] [address] Mean Corpuscular HGB Conc 34.9 g/dL Normal 32.0-35.0 [facility] Comment on above: Performed By: #### C BC, BMP #### [address] Monocytes (Bld) [#/Vol] 0.4 10*3/uL Normal 0.0-0.8 [facility] Comment on above: Performed By: #### C BC, BMP #### [place] [address] [place] Monocytes/100 WBC (Bld) 4.9 % Normal . [facility] Comment on above: Performed By: #### C BC, BMP #### [place] [address] [place] Neutrophils (Bld) [#/Vol] 4.2 10*3/uL Normal 1.8-7.7 [facility] Comment on above: Performed By: #### C BC, BMP #### [place] [address] [place] Neutrophils/100 WBC (Bld) 58.3 % Normal . [facility] Comment on above: Performed By: #### C BC, BMP #### [facility] [address] [place] [address] [place] Nucleated RBC/100 WBC (Bld) [Ratio] 0.1 % Normal 0-0.5 [facility] Comment on above: Performed By: #### C BC, BMP #### [address] Platelet mean volume (Bld) [Entitic vol] 8.6 fL Normal 6.3-10.7 [facility] Comment on above: Performed By: #### C BC, BMP #### [facility] [address] [place] [address] [place] Platelets (Bld) [#/Vol] 298 10*3/uL Normal 150-450 [facility] Comment on above: Performed By: #### C BC, BMP #### [facility] [address] [place] [address] [place] RBC (Bld) [#/Vol] 4.06 10*6/uL Normal 3.60-5.00 [facility] Comment on above: Performed By: #### C BC, BMP #### [facility] [address] [place] [address] [place] WBC (Bld) [#/Vol] 7.2 10*3/uL Normal 4.5-11.0 [facility] Comment on above: Performed By: #### C BC, BMP #### [place] [address] [place] Dipstick and Microscopicon 0 10-19-2020 Appearance (U) Clear Normal Clear [facility] Comment on above: Order Comment: Name Collection Type:: Clean-Voided Midstream Performed By: #### U HCG, ADDONUAPLUS #### [address] Bacteria,Urine None Seen Normal None Seen [facility] Comment on above: Order Comment: Name Collection Type:: Clean-Voided Midstream Performed By: #### U HCG, ADDONUAPLUS #### [place] [address] [place] Bilirubin,Urine Negative Normal Negative [facility] Comment on above: Order Comment: Name Collection Type:: Clean-Voided Midstream Performed By: #### U HCG, ADDONUAPLUS #### [place] [address] [place] Color (U) Yellow Normal Yellow [facility] Comment on above: Order Comment: Name Collection Type:: Clean-Voided Midstream Performed By: #### U HCG, ADDONUAPLUS #### [facility] [address] Glucose Ql (U) Normal Normal Normal [facility] Comment on above: Order Comment: Name Collection Type:: Clean-Voided Midstream Performed By: #### U HCG, ADDONUAPLUS #### [facility] [address] [place] [address] [place] Hyaline Casts,Urine 0-8 Normal 0-8 [facility] Comment on above: Order Comment: Name Collection Type:: Clean-Voided Midstream Performed By: #### U HCG, ADDONUAPLUS #### [facility] [address] [place] [address] Ketones Ql (U) Negative Normal Negative [facility] Comment on above: Order Comment: Name Collection Type:: Clean-Voided Midstream Performed By: #### U HCG, ADDONUAPLUS #### [address] Leukocyte esterase Test strip Ql (U) 1+ High Negative [facility] Comment on above: Order Comment: Name Collection Type:: Clean-Voided Midstream Performed By: #### U HCG, ADDONUAPLUS #### [place] [address] [place] Nitrite,Urine Negative Normal Negative [facility] Comment on above: Order Comment: Name Collection Type:: Clean-Voided Midstream Performed By: #### U HCG, ADDONUAPLUS #### [facility] [address] [place] [address] [place] Occult Blood,Urine Negative Normal Negative [facility] Comment on above: Order Comment: Name Collection Type:: Clean-Voided Midstream Performed By: #### U HCG, ADDONUAPLUS #### [facility] [address] [place] [address] [place] pH (U) 5.5 [pH] Normal 5.0-9.0 [facility] Comment on above: Order Comment: Name Collection Type:: Clean-Voided Midstream Performed By: #### U HCG, ADDONUAPLUS #### [place] [address] [place] Protein,Urine Negative Normal Negative [facility] Comment on above: Order Comment: Name Collection Type:: Clean-Voided Midstream Performed By: #### U HCG, ADDONUAPLUS #### [address] RBC LM.HPF (Urine sed) [#/Area] 0 /[HPF] Normal 0-4 [facility] Comment on above: Order Comment: Name Collection Type:: Clean-Voided Midstream Performed By: #### U HCG, ADDONUAPLUS #### [address] Specificy [place],Urine 1.011 Normal 1.001-1.030 [facility] Comment on above: Order Comment: Name Collection Type:: Clean-Voided Midstream Performed By: #### U HCG, ADDONUAPLUS #### [address] Squamous Epithelial Cell,Urine 5-9 High 0-2 [facility] Comment on above: Order Comment: Name Collection Type:: Clean-Voided Midstream Performed By: #### U HCG, ADDONUAPLUS #### [address] Urobilinogen,Urine Normal Normal Normal [facility] Comment on above: Order Comment: Name Collection Type:: Clean-Voided Midstream Performed By: #### U HCG, ADDONUAPLUS #### [facility] [address] [place] [address] WBC,Urine 3-4 Normal 0-4 [facility] Comment on above: Order Comment: Name Collection Type:: Clean-Voided Midstream Performed By: #### U HCG, ADDONUAPLUS #### [place] [address] [place] HCG,Urineon 10-19-2020 Beta HCG ( test) Ql (U) Negative Normal [facility] Comment on above: Order Comment: Name Collection Type:: Clean-Voided Midstream Result Comment: PERF ORMED BY: [place] [address] PATHOLOGIST SPINE SUPERVISOR MELVIN MAI M.D. Performed By: #### U HCG, ADDRACHELUANEW [facility] #### [facility] [address] PROGRESSon 02-22-2017 PROGRESS HNO ID: [id number]: Blanca Medinaice: (none)Author Type: PhysicianType: Progress NotesFiled: 02/22/2017 11:31 AMNote Text:DATE OF SERVICE: 02/18/2017PROBLEM: Gabby Coreas presents for postop visit.SURGERY AND DATE: 02/05/2017Laparoscopic right salpingo-[id number] and left ovarian cystectomyPATHOLOGY:[facility] DI[facility]NOSIS1. Right ovary and fallopian tube, right salpingo-oophorectomy (A):Right ovary - Serous cystadenoma.- Fibroma.Right fallopian tube - No significant pathologic change.2. Left ovary, cystectomy (B) - Serous cystadenoma.SUBJECTIVE /INTERVAL HISTORY: Gabby Coresa reports that she feelswell. No fever or [...] lb 3.2 oz) LMP 01/19/2017 BMI 40.81 kg/k7JKWHT: Normocephalic, atraumatic, mucus membranes moist and no [...] I advised her to continue her routine ob/gyn doctor exam and cervical screening4. I advised her to call my office with any issue or concern especially ifrelated to the surgeryBlanca Morton MD, MPHCC:Storm Thurman, LISSETT Clark (PCP) [facility] CNOVon 02-18-2017 CNOV Office Visit (GYNOSA) GABBY COREAS ([id number]) 1985 FDate Time Provider Department02/18/17 3:20 PM BLANCA MORTON During your visit today, we recorded the following information about you: Temperature Pulse Respiration Blood pressure 97.8 degrees 92/minute 18/minute 123/84 Weight Height 101.2 kg 1.575 Jagdeep Guillory 02/18/2017 4:00 PM SignedPatient believes she has a UTI, which is causing her some discomfort.Blanca Morton MD 02/22/2017 11:31 AM SignedDATE OF SERVICE: 02/18/2017PROBLEM: Gabby Coreas presents for postop visit.SURGERY ANDamp; DATE: 02/05/2017Laparoscopic right salpingo-[id number] and left ovarian cystectomyPATHOLOGY:FI NAL DIAGNOSIS1. Right ovary and fallopian tube, [...] (223 lb 3.2 oz) LMP 01/19/2017 BMI40.81 kg/s7MKBXA: Normocephalic, atraumatic, mucus membranes moist and no [...] I advised her to continue her routine ob/gyn doctor exam and cervical screening4. I advised her to call my office with any issue or concern especially ifrelated to the surgeryBlanca Morton MD, MPHCC:Isaac Carrsaco PA (PCP)Referring Provider: BLANCA MORTON [[id number]]Allergies As of Date: 02/18/2017(No Known Allergies)Date Reviewed: [...] some discomfort.Follow-up and Disposition History RecordedEncounter Number: [id number] Status:Closed by BLANCA MORTON MD on 02/22/17 Normal [facility] Vital Signs Date Time Vital Sign Value Performing Clinician Facility 08-28-2022 17:45-0500 Body height 157.48 cm Paige Dian Other [email or web address] Other 08-28-2022 17:45-0500 Body mass index (BMI) [Ratio] 41.7 kg/m2 Paige Dian Other [email or web address] Other 08-28-2022 17:45-0500 Body temperature 98.1 [degF] Paige Dian Other [email or web address] Other 08-28-2022 17:45-0500 Body weight 103.42 kg Paige Dian Other [email or web address] Other 08-28-2022 17:45-0500 Diastolic blood pressure 75 mm[Hg] Paige Biggs Other [email or web address] Other 08-28-2022 17:45-0500 Respiratory rate 18 /min Paige Dian Other [email or web address] Other 08-28-2022 17:45-0500 SaO2% (BldA) [Mass fraction] 99 % Paige Dian Other [email or web address] Other 08-28-2022 17:45-0500 Systolic blood pressure 129 mm[Hg] Paige Biggs Other [email or web address] Other 08-11-2022 11:15-0500 Body height 157.48 cm Ignacia Acosta Other [email or web address] Other 08-11-2022 11:15-0500 Body mass index (BMI) [Ratio] 41.7 kg/m2 Ignacia Acosta Other [email or web address] Other 08-11-2022 11:15-0500 Body temperature 98 [degF] Ignacia Acosta Other [email or web address] Other 08-11-2022 11:15-0500 Body weight 103.42 kg Ignacia Acosta Other [email or web address] Other 08-11-2022 11:15-0500 Respiratory rate 18 /min Ignacia Acosta Other [email or web address] Other 08-11-2022 11:15-0500 SaO2% (BldA) [Mass fraction] 98 % Ignacia Acosta Other [email or web address] Other Encounters Encounter Date Encounter Type Care Provider Facility Start: 11-07-2024 End: 11-07-2024 ambulatory REHANA VILLANUEVA Not Available Start: 05-05-2024 End: 05-05-2024 Bamboo flowsheet Tim Moon DO Work Phone: [facility] Start: 05-05-2024 End: 05-05-2024 Bamboo flowsheet Tim Moon DO [facility] Start: 05-05-2024 End: 05-05-2024 ambulatory TIM MOON Not Available Start: 05-05-2024 End: 05-05-2024 Patient encounter procedure Tim Moon DO Work Phone: [facility] Comment on above: Paresthesia (Primary Dx) Start: 10-28-2022 End: 10-29-2022 ambulatory IGNACIA RAY Facility:[facility] Start: 08-28-2022 End: 08-28-2022 ambulatory Paige Dian Other [email or web address] Other Start: 08-28-2022 Office outpatient visit 15 minutes Paige Biggs [facility] Start: 08-11-2022 End: 08-11-2022 ambulatory Ignacia Acosta Other [email or web address] Other Start: 08-11-2022 Office outpatient ne w 20 minutes Ignacia Karla [facility] Start: 02-18-2017 End: 02-18-2017 Ambulatory [facility] Start: 02-05-2017 End: 02-06-2017 Ambulatory [facility] Procedures Date Procedure Procedure Detail Performing Clinician Start: 05-05-2024 End: 05-05-2024 Needle emg ea extremty w/paraspinl area complete Tim Moon DO Work Phone: Start: 08-09-2020 Microscopic observat ion [Identifier] in Cervix by Cyto stain Tim Moon DO Work Phone: Plan of Treatment Date Care Activity Detail Author Start: 04-24-2024 Influenza vaccination Influenza Vacc ine (#1) [facility] Start: 08-09-2023 Screening for malign ant neoplasm of cervix [facility] Start: 2014 Screening for malign ant neoplasm of cervix HPV/Cotest [facility] Payers Date Payer Category Payer Private Health Insurance [facility] [id number] 2023-Present [address] [address] [place] [address] [id number] 1985 Unknown [id number] 1985 Unknown [id number] 1985 Unknown [id number] 1960 Private Health Insurance [id number] Social History Date Type Detail Facility Sex Assigned At [email or web address] Other Tobacco smoking status FLIS Tobacco smoking consumption unknown [facility] Start: 1985 Sex assigned at Female N [facility] Start: 04-28-2024 Gender identity Identifies as female gender (finding) [facility] History of Present illness Narrative 05-05-2024 ALINA Hood - 05/05/2024 1:00 PM EDT Note Date & Type Note Facility 05-05-2024 History of Presen t illness Narrative Images from the original note were not included. Reason for Appointment: EMG Patient: Gabby Coreas : 1985 EMG Computer: [employer] Referring Physician: Genoveva Canas PA-C EMG: SHAYNA machine tailer: Mikel Randle RT(R) Office Location: [place] Reason for EMG: c/o pain in dorsal right foot, weakness in bilateral legs. No hx of DM. Not on blood thinners. Comments: Procedure was explained to the patient who expressed understanding. Patient appeared to have tolerated the test well despite some discomfort due to the nature of the test. documented in this encounter [facility] Evaluation note 08-28-2022 Note Date & Type [...] weeks for the cough to go away [email or web address] Other Evaluation note 08-11-2022 Note Date & [...] days. Jul, Acute cough (ICD-10 - R05.1) [email or web address] Other Clinical Note 05-14-2021 Note Date & [...] to feel better. ? Take or apply zlod-krv-fgeoypm and prescription medicines only as told by [...] provider. Document Revised: 11/29/2019 Document Reviewed: 03/16/2019 [employer] Patient Education ? 2019 [address] [facility] Evaluation note Note Date & Type Note Facility Evaluation note Diagnosis Paresthesia- Primary Disturbance of skin sensation documented in this encounter [facility] Summary Purpose Family History No Family [...] section and content) DATE CREATED AUTHOR 02/17/2018 [facility] DATE CREATED AUTHOR AUTHOR'S ORGANIZ ATION 02/17/2018 [facility] DATE CREATED AUTHOR AUTHOR'S ORGANIZ ATION 05/25/2021 [facility] DATE CREATED AUTHOR AUTHOR'S ORGANIZ ATION 09/08/2021 [facility] DATE CREATED AUTHOR AUTHOR'S ORGANIZ ATION 10/30/2022 [facility] DATE CREATED AUTHOR AUTHOR'S ORGANIZ ATION 11/09/2024 [facility] EPIC REASON FOR VISIT (unrecogniz ed section and content) COUGH, CONGESTIONCOUGH TEST POSS COVID 08/11/2022 Care Teams (unrecognized sec tion and content) Marketing Analyst Relationship Specialty Start Date End Date Ignacia Ray MD [address] [place] [id number] PCP - General 04/28/24 Marketing Analyst Relationship Specialty Start Date End Date Ignacia Ray MD [address] [place] [id number] PCP - General 04/28/24 FOR RECORDS PERTAINING TO PATIENTS WHO ARE [...] BE BASED ON THE PRIMARY CLINICAL RECORDS. [employer] [facility]. provides no warranty or guarantee of the accuracy or completeness of information in this document.
[2024-11-22 08:07] LABS: Basophils Percent Auto 0.3 % (0.2-2.0); Eosinophils Absolute Auto 0.1 10^3/uL (0.0-0.7); Eosinophils Percent Auto 1.6 % (0.9-7.0); Hematocrit 34.5 % (36.0-48.0); Hemoglobin 11.7 g/dL (12.0-16.0); Immature Granulocytes Abs Auto 0.02 10^3/uL (0.00-0.03); Immature Granulocytes Pct Auto 0.3 % (0.0-0.5); Lymphocytes Absolute Auto 2.2 10^3/uL (1.2-3.8); Lymphocytes Percent Auto 28.1 % (20.5-60.0); Mean Corpuscular HGB Conc 33.9 g/dL (29.9-35.2); Mean Corpuscular Hemoglobin 29.4 pg (26.7-34.0); Mean Corpuscular Volume 86.7 fL (81.0-99.0); Mean Platelet Volume 10.2 fL (9.5-13.5); Monocytes Absolute Auto 0.4 10^3/uL (0.3-0.8); Monocytes Percent Auto 4.8 % (1.7-12.0); Neutrophils Percent Auto 64.9 % (43.0-75.0); Platelet Count 323 10^3/uL (150-450); Red Blood Count 3.98 10^6/uL (4.20-5.40); Red Cell Distribution Width 13.3 % (11.0-15.0); White Blood Count 7.7 10^3/uL (4.0-11.0)
[2024-11-22 08:38] LABS: Estimated Average Glucose 85 mg/dL; Glycohemoglobin A1C 4.6 % (4.5-6.2)
[2024-11-22 09:38] LABS: Alanine Aminotransferase 11 U/L (14-59); Albumin Globulin Ratio 0.9; Albumin Level 3.5 g/dL (3.4-5.0); Alkaline Phosphatase 105 U/L (46-116); Anion Gap 15.1; Aspartate Amino Transferase 14 U/L (15-37); BUN Creatinine Ratio 14.7; Bilirubin Total 1.5 mg/dL (0.2-1.0); Carbon Dioxide 23.7 mmol/L (21.0-32.0); Chloride 105 mmol/L (98-107); Chol HDL Ratio 4.5; Cholesterol 168 mg/dL (<=200); Estimated GFR (African America >60 (>=60 mL/min/1.73m^2); Estimated GFR (Non-African Ame >60 (>=60 mL/min/1.73m^2); Free T3 2.27 pg/mL (2.18-3.98); Glucose 87 mg/dL (74-106); HDL Cholesterol 37 mg/dL (40-60); Potassium 3.8 mmol/L (3.5-5.1); Sodium 140 mmol/L (136-145); Thyroid Stimulating Hormone 5.151 uIU/mL (0.358-3.740); Total Protein 7.5 g/dL (6.4-8.2); Triglycerides 155 mg/dL (<=150)
[2024-11-23 03:07] LABS: Insulin 23.6 uIU/mL (2.6-24.9)
== END 2024-11-22 07:57 | disposition home or self-care (01) ==
LOC: LAB 07:56
PROVIDERS: PCP Nurse Practitioner Family; Visit Provider Nurse Practitioner Family
DX: Z00.00 Encounter for general adult medical examination without abnormal findings (principal)
CPT/HCPCS: 36415; 80053; 80061; 82306; 83036; 83525; 83540; 84436; 84443; 84481; 85025